=== PATIENT | female | born 1930 | race African-American/Black ===

== ENCOUNTER → 2017-02-26 | Outpatient (CLI) | payer MEDICARE, MEDICAID ==
--- NOTE | 2017-02-26 16:39 | WOMENS IMAGING REPORT ---
EXAM DESCRIPTION: 3D SCREENING MAMMO BILAT COMPLETED DATE/TIME: 02/26/2017 3:28 pm REASON FOR STUDY: ROUTINE SCREENING; Z12.31 Z12.31 ENCNTR SCREEN MAMMOGRAM FOR MALIGNANT NEOPLASM O F TITI COMPARISON: Multiple since 2008 TECHNIQUE: Standard craniocaudal and mediolateral oblique views of each breast recorded using digita l acquisition and breast tomosynthesis. LIMITATIONS: None. FINDINGS: No masses, calcifications or architectural distortion. No areas of suspicion. Read with the assistance of CAD. .[facility] - R2 Cenova Version 1.3 .[facility] Imaging - R2 Cenova Version 1.3 .[facility] Imaging - R2 Cenova Version 2.4 .[facility] [place]2 Cenova Version 2.4 .[facility] - R2 [employer] Clerk Version 9.2 IMPRESSION: NORMAL MAMMOGRAM. BIRADS 1. BREAST DENSITY: b. There are scattered areas of fibroglandular density. BIRAD: 1 NEGATIVE RECOMMENDATION: ROUTINE SCREENING COMMENT: The patient has been notified of the results by letter per SA requirements. Additional no tification policies are in place for contacting patient with suspicious or incomplete findings. Quality ID #[id number]: The [employer] recommends an annual screening mammogram for women aged 40 years or over. This facility utilizes a reminder system to ensure that all patients receive reminder letters, and/or direct phone calls for appointments. This includes reminders for routine scr eening mammograms, diagnostic mammograms, or other Breast Imaging Interventions when appropriate. Th is patient will be placed in the appropriate reminder system. The [employer] (ACR) has developed recommendations for screening MRI of the breast s in certain patient populations, to be used in conjunction with mammography. Breast MRI surveillanc e may be appropriate for women with more than 20% lifetime risk of developing breast cancer as deter mined by genetic testing, significant family history of the disease, or history of mantle radiation f or Hodgkins Disease. ACR Practice Guidelines 2008. DBT Technology DBT is a type of tomographic mammography. With conventional mammography, overlapping breast tissue ma y make lesions difficult to detect, even with good compression. DBT uses an x-ray tube that rotates a round the breast, taking images at different angles. These images are then combined to create thin sl ices of the breast that the radiologist can view as a 3D reconstruction. The [employer] unit can perform full-field digital mammograms (2D imaging); or DBT (3D imaging); or both, in a combination mode that quickly performs both the mammogram and the tomosynthesis scan while the breast is still compressed. PQRS 6045F: Fluoroscopic imaging is not utilized for breast tomosynthesis. TECHNICAL DOCUMENTATION: FINDING NUMBER: (1) ASSESSMENT: (1) JOB ID: [id number] [employer]- All Rights Reserved
== END ==
LOC: WI 13:56
PROVIDERS: ATTEND Internal Medicine Geriatric Medicine
DX: Z12.31 Encounter for screening mammogram for malignant neoplasm of breast (principal)
CPT/HCPCS: 77063; G0202; 77067

== ENCOUNTER → 2017-07-18 | Outpatient (CLI) | payer MEDICARE, MEDICAID ==
--- NOTE | 2017-07-18 17:04 | RADIOLOGY REPORT (SQ) ---
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 Selected additional c olor/power Doppler images recorded. All images stored to PACS. LIMITATIONS: None. FINDINGS: The thyroid gland is diffusely heterogeneous in echogenicity. There is a 2.2 x 1.8 cm mary id nodule in the thyroid isthmus. Right lobe thyroid measures about 3.5 x 1.8 cm in size with multiple colloid cysts, the largest is 8 mm in diameter. Left lobe thyroid is 2.6 x 1.2 cm in size with multiple colloid cysts, the largest is 7 mm in diamete r. IMPRESSION: Solid thyroid isthmus mass 2.2 x 1.8 cm in size. TECHNICAL DOCUMENTATION: JOB ID: [id number] [employer]- All Rights Reserved Reading location - IP/workstation name: [email or web address]
== END ==
LOC: RAD 12:46
PROVIDERS: ATTEND Internal Medicine Geriatric Medicine
DX: E04.2 Nontoxic multinodular goiter (principal)
CPT/HCPCS: 76536

== ENCOUNTER → 2017-09-06 | Day surgery (SDC) | payer MEDICARE, MEDICAID ==
--- NOTE | 2017-09-06 13:03 | RADIOLOGY REPORT (SQ) ---
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 A ti meout was performed to confirm the procedure and patient's identity. The skin of the neck was preppe d and draped in sterile fashion and 0.5 mL of 1% lidocaine administered for local anesthesia. Under sonographic guidance, fine needle aspiration biopsy was performed of the 2.2 x 1.8 cm mass in the is thmus of the thyroid. Three separate aspirations were performed. Specimens were evaluated by Teresa from cytology at the t reece of acquisition. Hemostasis was obtained with direct manual compression. There were no immediate complications. LIMITATIONS: None. FINDINGS: PATHOLOGY: Pending. IMPRESSION: ULTRASOUND-GUIDED BIOPSY PERFORMED OF A MASS IN THE thyroid isthmus. PATHOLOGY PENDING AT THE TIME OF DICTATION. COMMENT: Patient medication list reviewed: Yes- Quality ID# [id number]:Eligible professional attests to doc umenting in the medical record they obtained, updated, or reviewed the patient's current medications. TECHNICAL DOCUMENTATION: JOB ID: [id number] [employer]- All Rights Reserved Reading location - IP/workstation name: [email or web address]
== END ==
LOC: RAD 10:17
PROVIDERS: ATTEND Internal Medicine Geriatric Medicine
DX: E04.1 Nontoxic single thyroid nodule (principal)
CPT/HCPCS: 60100; 88173

== ENCOUNTER → 2018-03-06 | Outpatient (CLI) | payer MEDICARE, MEDICAID ==
--- NOTE | 2018-03-06 12:54 | WOMENS IMAGING REPORT ---
EXAM DESCRIPTION: 3D SCREENING MAMMO BILAT COMPLETED DATE/TIME: 03/06/2018 10:14 am REASON FOR STUDY: SCREENING MAMMO Z12.31 ENCNTR SCREEN MAMMOGRAM FOR MALIGNANT NEOPLASM OF TITI COMPARISON: Multiple since 2008 TECHNIQUE: Standard craniocaudal and mediolateral oblique views of each breast recorded using digita l acquisition and breast tomosynthesis. LIMITATIONS: None. FINDINGS: No masses, calcifications or architectural distortion. No areas of suspicion. Read with the assistance of CAD. .[facility] - R2 Cenova Version 1.3 .[facility] Imaging - R2 Cenova Version 1.3 .[facility] Imaging - R2 Cenova Version 2.4 .[facility] [place] R2 Cenova Version 2.4 .[facility] - R2 Program [employer] Version 9.2 IMPRESSION: NORMAL MAMMOGRAM. BIRADS 1. BREAST DENSITY: b. There are scattered areas of fibroglandular density. BIRAD: 1 NEGATIVE RECOMMENDATION: ROUTINE SCREENING Please continue yearly bilateral screening mammography/tomosynthesis in February 2019 COMMENT: The patient has been notified of the results by letter per SA requirements. Additional no tification policies are in place for contacting patient with suspicious or incomplete findings. Quality ID #[id number]: The [employer] recommends an annual screening mammogram for women aged 40 years or over. This facility utilizes a reminder system to ensure that all patients receive reminder letters, and/or direct phone calls for appointments. This includes reminders for routine scr eening mammograms, diagnostic mammograms, or other Breast Imaging Interventions when appropriate. Th is patient will be placed in the appropriate reminder system. The [employer] (ACR) has developed recommendations for screening MRI of the breast s in certain patient populations, to be used in conjunction with mammography. Breast MRI surveillanc e may be appropriate for women with more than 20% lifetime risk of developing breast cancer as deter mined by genetic testing, significant family history of the disease, or history of mantle radiation f or Hodgkins Disease. ACR Practice Guidelines 2008. DBT Technology DBT is a type of tomographic mammography. With conventional mammography, overlapping breast tissue ma y make lesions difficult to detect, even with good compression. DBT uses an x-ray tube that rotates a round the breast, taking images at different angles. These images are then combined to create thin sl ices of the breast that the radiologist can view as a 3D reconstruction. The [employer] unit can perform full-field digital mammograms (2D imaging); or DBT (3D imaging); or both, in a combination mode that quickly performs both the mammogram and the tomosynthesis scan while the breast is still compressed. PQRS 6045F: Fluoroscopic imaging is not utilized for breast tomosynthesis. TECHNICAL DOCUMENTATION: FINDING NUMBER: (1) ASSESSMENT: (1) JOB ID: [id number] [employer]- All Rights Reserved Reading location - IP/workstation name: [email or web address]
== END ==
LOC: WI 09:29
PROVIDERS: ATTEND Internal Medicine Geriatric Medicine
DX: Z12.31 Encounter for screening mammogram for malignant neoplasm of breast (principal)
CPT/HCPCS: 77063; 77067

== ENCOUNTER → 2018-10-15 | Outpatient (CLI) | payer MEDICAID, MEDICARE ==
--- NOTE | 2018-10-15 14:42 | RADIOLOGY REPORT (SQ) ---
EXAM DESCRIPTION: CT CHEST WITH COMPLETED DATE/TIME: 10/15/2018 2:10 pm REASON FOR STUDY: C85.90 NON-HODGKIN LYMPHOMA, UNSPECIFIED, UNSPECIFIED SITE C85.90 NON-HODGKIN LYM PHOMA, UNSPECIFIED, UNSPECIFIED SITE COMPARISON: PET-CT dated 02/09/2018 TECHNIQUE: CT scan of the chest performed using helical scanning technique with dynamic intravenous contrast injection. Images reviewed with lung, soft tissue and bone windows. Reconstructed coronal and sagittal MPR and MIP images reviewed. All images stored on PACS. All CT scanners at this facility use dose modulation, iterative reconstruction, and/or weight based d osing when appropriate to reduce radiation dose to as low as reasonably achievable (ALARA). [facility]: Dose Right [facility]: CareDose [facility]: Dose Right [facility]: Teradose 4D [facility]: Show de Ingressos CONTRAST TYPE AND DOSE: 80 mL Omnipaque 350- low osmolar. RENAL FUNCTION: Creatinine 1.3 RADIATION DOSE: . LIMITATIONS: None. FINDINGS: LUNGS AND PLEURA: No opacities, nodules, masses. No pneumothorax. No effusions. HILAR AND MEDIASTINAL STRUCTURES: No mass or adenopathy. HEART AND VASCULAR STRUCTURES: No aneurysm or dissection. No central pulmonary emboli. No pericardi al effusion. HARDWARE: None in the chest. UPPER ABDOMEN: Small left renal cyst. THYROID AND OTHER SOFT TISSUES: Isthmus lesion is again noted. This was previously biopsied. BONES: No significant finding. OTHER: No other significant finding. IMPRESSION: No evidence of metastatic disease in the chest. TECHNICAL DOCUMENTATION: JOB ID: [id number] Quality ID # [id number]: Final reports with documentation of one or more dose reduction techniques (e.g., Au tomated exposure control, adjustment of the mA and/or kV according to patient size, use of iterative reconstruction technique) 2010 [employer]- All Rights Reserved Reading location - IP/workstation name: [email or web address]
--- NOTE | 2018-10-15 14:58 | RADIOLOGY REPORT (SQ) ---
EXAM DESCRIPTION: CT ABDOMEN IV CONTRAST ONLY COMPLETED DATE/TIME: 10/15/2018 2:08 pm REASON FOR STUDY: C85.90 NON-HODGKIN LYMPHOMA, UNSPECIFIED, UNSPECIFIED SITE C85.90 NON-HODGKIN LYM PHOMA, UNSPECIFIED, UNSPECIFIED SITE COMPARISON: None. TECHNIQUE: CT scan of the abdomen performed with intravenous and without oral contrast using helical scanning technique with dynamic intravenous contrast injection. Images reviewed with lung, soft tiss ue, and bone windows. Reconstructed coronal and sagittal MPR images reviewed. Delayed images for eval uation of the urinary system also acquired and evaluated. All images stored on PACS. All CT scanners at this facility use dose modulation, iterative reconstruc tion, and/or weight based dosing when appropriate to reduce radiation dose to as low as reasonably ac hievable (ALARA). [facility]: Dose Right [facility]: CareDose [facility]: Dose Right [facility]: Teradose 4D [facility]: [employer]Eye CONTRAST TYPE AND DOSE: contrast/concentration: Isovue 350.00 mg/ml; Total Contrast Delivered: 80.0 ml; Total Saline Delivered: 68.0 ml RENAL FUNCTION: Creatinine 1.3 RADIATION DOSE: CT Rad equipment meets quality standard of care and radiation dose reduction technGlimmerglass Networks ues were employed. CTDIvol: 4.7 - 10.3 mGy. DLP: 675 mGy-cm. . LIMITATIONS: None. FINDINGS: LOWER CHEST: No significant findings. No nodules or infiltrates. LIVER: There is a small hepatic cyst. SPLEEN: Normal size. No focal lesions. PANCREAS: No masses. No significant calcifications. No adjacent inflammation or peripancreatic fluid collections. Pancreatic duct not dilated. GALLBLADDER: No identified stones by CT criteria. No inflammatory changes to suggest cholecystitis. ADRENAL GLANDS: No significant masses or asymmetry. RIGHT KIDNEY AND URETER: No solid masses. No significant calcifications. No hydronephrosis or hyd roureter. LEFT KIDNEY AND URETER: No solid masses. No significant calcifications. No hydronephrosis or hydr oureter. There is a small cortical cyst. AORTA AND VESSELS: Mild atherosclerotic change. No aneurysmal dilatation. RETROPERITONEUM: No retroperitoneal adenopathy, hemorrhage or masses. BOWEL AND PERITONEAL CAVITY: There is large amount of stool throughout the visualize colon. No bowel wall thickening or mesenteric inflammation. APPENDIX: Not visualized. ABDOMINAL WALL: No masses. No hernias. BONES: No significant or acute findings. OTHER: No other significant finding. IMPRESSION: Constipation. No evidence of metastatic disease in the abdomen or pelvis. TECHNICAL DOCUMENTATION: JOB ID: [id number] Quality ID # [id number]: Final reports with documentation of one or more dose reduction techniques (e.g., Au tomated exposure control, adjustment of the mA and/or kV according to patient size, use of iterative reconstruction technique) 2010 [employer]- All Rights Reserved Reading location - IP/workstation name: [email or web address]
== END ==
LOC: RAD 13:30
PROVIDERS: ATTEND Internal Medicine Medical Oncology
DX: C85.90 Non-Hodgkin lymphoma, unspecified, unspecified site (principal); K59.00 Constipation, unspecified
CPT/HCPCS: 71260; 74160; 82565

== ENCOUNTER → 2018-11-30 | Outpatient (CLI) | payer MEDICAID, MEDICARE ==
--- NOTE | 2018-12-01 08:35 | RADIOLOGY REPORT (SQ) ---
EXAM DESCRIPTION: PET CT SKULL/THIGH COMPLETED DATE/TIME: 12/01/2018 5:25 am REASON FOR STUDY: C85.90 NON-HODGKIN LYMPHOMA, UNSPECIFIED, UNSPECIFIED SITE C85.90 NON-HODGKIN LYM PHOMA, UNSPECIFIED, UNSPECIFIED SITE M89.9 DISORDER OF BONE, UNSPECIFIED COMPARISON: PET scan dated 02/10/2016. CT chest, abdomen, and pelvis dated 10/15/2018. RADIONUCLIDE AND DOSE: 10 mCi F18 FDG The route of agent administration: Intravenous FASTING BLOOD SUGAR: 98 mg/dl CONTRAST TYPE AND DOSE: No CT contrast given. TECHNIQUE: Blood glucose level was verified. Above dose of FDG was injected intravenously. 2-D seg mented attenuation correction images were obtained from the base of the skull to the midthighs. Nonc ontrast CT images were obtained for attenuation correction and fusion with emission images. CT image s were performed without oral or intravenous contrast and are not sensitive for parenchymal lesions. A series of overlapping emission PET images were obtained. Images reviewed and manipulated at [facility] work station by the radiologist. Images stored on PACS. LIMITATIONS: None. FINDINGS: HEAD AND NECK: No areas of abnormal metabolic activity in the soft tissues of the head and neck. CHEST: No areas of abnormal metabolic activity in the chest. ABDOMEN AND PELVIS: No areas of abnormal metabolic activity in the abdomen or pelvis. Expected physi ologic activity is present in the genitourinary system and bowel. PROXIMAL LOWER EXTREMITIES: No areas of abnormal metabolic activity in the soft tissues of the lower extremities. BONES: Focal increased activity on the left side of the L3 vertebra near the pedicle. Mean SUV 6.81. No focal bony lesions on CT other than adjacent degenerative disc disease. Bilateral hip prosthese s with areas of increased activity along the left femoral stem component and at the tip of the right femoral stem component. ADDITIONAL CT FINDINGS: No additional significant findings on the noncontrast CT images. OTHER: Background blood pool activity mean SUV 1.53. Background liver activity mean SUV 2.22. No ot her significant findings. IMPRESSION: 1. FOCAL AREA OF INCREASED ACTIVITY ON THE LEFT SIDE OF THE L3 VERTEBRA. NO NOTICEABLE BONY FINDING ON CT OTHER THAN ADJACENT DEGENERATIVE DISC DISEASE. WOULD RECOMMEND FOLLOW-UP MRI OF THE LUMBAR SPI NE TO DETERMINE IF THERE IS ANY EVIDENCE OF BONY PATHOLOGY OTHER THAN DEGENERATIVE DISC DISEASE. 2. INCREASED ACTIVITY ALONG THE FEMORAL STEM OF BOTH HIP PROSTHESES, MORE PROMINENT ON THE LEFT. NO FOCAL BONY FINDINGS. MAY BE RELATED TO INFLAMMATION AND POTENTIALLY DUE TO LOOSENING OF THE PROSTHES IS. 3. NO OTHER AREAS OF ABNORMAL ACTIVITY ON PET IMAGING. PREVIOUSLY SEEN HYPERMETABOLIC CERVICAL LYMPH NODE ON THE PET SCAN FROM JANUARY 2016 IS NO LONGER PRESENT. TECHNICAL DOCUMENTATION: JOB ID: [id number] [email or web address]- All Rights Reserved Reading location - IP/workstation name: [email or web address]
== END ==
LOC: RAD 14:31
PROVIDERS: ATTEND Internal Medicine Medical Oncology
DX: M89.9 Disorder of bone, unspecified (principal); C85.91 Non-Hodgkin lymphoma, unspecified, lymph nodes of head, face, and neck
CPT/HCPCS: 78815; A9552

== ENCOUNTER → 2018-12-29 | Outpatient (CLI) | payer MEDICAID, MEDICARE ==
--- NOTE | 2018-12-29 14:54 | RADIOLOGY REPORT (SQ) ---
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 TECHNIQUE: Sagittal and Axial imaging includes T1, T1 post gadolinium, T2, STIR and gradient echo se quences. Coronal T2/HASTE imaging. CONTRAST TYPE AND DOSE: 15 mL Dotarem. RENAL FUNCTION: Not indicated. ACR Type II contrast agent associated with few, if any, unconfounded cases of NSF LIMITATIONS: None. FINDINGS: VISUALIZED UPPER ABDOMEN: Limited evaluation. No acute or suspicious findings suggested. SEGMENTATION: No transitional anatomy. The lowest well-developed disc space is labeled L5-S1. ALIGNMENT: Mild scoliosis. Grade 1 anterolisthesis L3 relative to L4. VERTEBRAE: Intact. No fractures. BONE MARROW: Abnormal decreased T1 signal and enhancement superior endplate L3 extending to left of m idline into the pedicle. This corresponds to the finding on recent CT. DISC SIGNAL: Desiccation multiple levels. POSTERIOR ELEMENTS: Generally intact. No pars defect evident. HARDWARE: None in the spine. CORD AND CONUS: Normal in size and signal intensity. Conus at the appropriate level. SOFT TISSUES: No aortic aneurysm seen. No bulky retroperitoneal adenopathy or mass. No paraspinal mas s or fluid. L1-L2: Disc bulge and facet arthropathy. No significant stenosis. L2-L3: Mild spinal stenosis due to disc bulge and facet arthropathy.There is abnormal enhancement in the L3 pedicle which extends into and surrounds the exiting left L2 nerve root. L3-L4: Mild spinal stenosis due to disc bulge and facet arthropathy. There is abnormal enhancement i n the pedicle which extends into and surrounds the exiting left L3 nerve root. L4-L5: Mild spinal stenosis due to disc bulge and facet arthropathy. Mild neural foraminal narrowing bilaterally. L5-S1: Disc bulge and facet arthropathy. Mild neural foraminal narrowing bilaterally. LOWER THORACIC: Incompletely imaged. No stenosis seen. SACRUM: Visualized upper sacrum intact. ENHANCEMENT: See above. OTHER: No other significant findings. 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 TECHNICAL DOCUMENTATION: JOB ID: [id number]- All Rights Reserved Reading location - IP/workstation name: [email or web address]
== END ==
LOC: RAD 09:04
PROVIDERS: ATTEND Internal Medicine
DX: C82.08 Follicular lymphoma grade I, lymph nodes of multiple sites (principal)
CPT/HCPCS: 82565; 72158; A9576

== ENCOUNTER 2019-02-04 18:32 | Inpatient (IN) | payer MEDICARE ==
[2019-02-04] MEDS ORDERED: NORMAL SALINE 1000 ML 1,000 ML IV ONE ×2 (19:14→21:43)
[2019-02-04 19:45] LABS: ABSOLUTE EOSINOPHILS # (AUTO) 0.1 10^3/uL (0.0-0.6); ABSOLUTE LYMPHOCYTES (AUTO) 1.2 10^3/uL (0.5-4.7); ABSOLUTE MONOCYTES (AUTO) 0.9 10^3/uL (0.1-1.4); ABSOLUTE NEUT (AUTO) 3.8 10^3/uL (1.7-8.2); BASOPHILS % (AUTO) 0.1 % (0-2); HEMATOCRIT 23.6 % (36.0-47.0); LYMPHOCYTES % (AUTO) 20.4 % (13-45); MEAN CORPUSCULAR HGB CONC 33.9 g/dL (32.0-36.0); MEAN CORPUSCULAR VOLUME 94 fl (80-97); MONOCYTES % (AUTO) 15.4 % (3-13); PLATELET COUNT 104 10^3/uL (150-450); RED CELL DISTRIBUTION WIDTH 15.5 % (11.5-14.0); SEGMENTED NEUTROPHILS % (AUTO) 62.1 % (42-78); TOTAL CELLS COUNTED % (AUTO) 100 %
[2019-02-04 19:50] LABS: APPEARANCE,URINE SLIGHTLY-CLOUDY; BILIRUBIN,URINE NEGATIVE (NEGATIVE); COLOR,URINE YELLOW; GLUCOSE, URINE NEGATIVE (NEGATIVE); KETONES,URINE NEGATIVE (NEGATIVE); LEUKOCYTE ESTERASE,URINE LARGE (NEGATIVE); NITRITE,URINE POSITIVE (NEGATIVE); PROTEIN,URINE NEGATIVE (NEGATIVE); URINE SPECIFIC GRAVITY 1.018; UROBILINOGEN,URINE NEGATIVE mg/dL (<2.0)
[2019-02-04 19:57] LABS: ALBUMIN 3.4 g/dL (3.5-5.0); ALKALINE PHOSPHATASE 50 U/L (38-126); ANION GAP 8 (5-19); ASPARTATE AMINO TRANSFERASE 61 U/L (14-36); BILIRUBIN,TOTAL 0.2 mg/dL (0.2-1.3); BLOOD UREA NITROGEN 44 mg/dL (7-20); CALCIUM 8.6 mg/dL (8.4-10.2); CARBON DIOXIDE 25 mmol/L (22-30); CHLORIDE 99 mmol/L (98-107); CREATINE KINASE 160 U/L (30-135); GLUCOSE 108 mg/dL (75-110); POTASSIUM 4.4 mmol/L (3.6-5.0); TOTAL PROTEIN 7.5 g/dL (6.3-8.2)
[2019-02-04 20:09] LABS: CREATINE KINASE MB 2.44 ng/mL (<4.55)
[2019-02-04] MEDS ORDERED: CEFTRIAXONE 1 GM/D5W RTU 1 GM/50 ML RTUPB IV ONE (20:15)
[2019-02-04 20:17] LABS: TROPONIN I 0.046 ng/mL
--- NOTE | 2019-02-04 20:22 | EKG REPORT ---
SEVERITY:- ABNORMAL ECG - SINUS RHYTHM NONSPECIFIC ST-T CHANGES LATERAL LEADS : Confirmed by: Rahul Knox MD 04-Feb-2019 20:22:19
--- NOTE | 2019-02-04 20:56 | RADIOLOGY REPORT (SQ) ---
EXAM DESCRIPTION: [employer]: XR CHEST 1 VIEW CLINICAL HISTORY: 88 years Female, cough COMPARISON: None. FINDINGS: Lungs are clear, with no focal infiltrate, pneumothorax, or pleural effusion. Left PICC line tip is at the cavoatrial junction, port partially visualized in the left arm. Mediastinum is within normal limits for this positioning. Bony structures are unremarkable. IMPRESSION: 1. No acute pulmonary findings. 2. Left PICC line in place
[2019-02-05] MEDS ORDERED: ASPIRIN 81 MG TABLET, CHEWABLE PO ONE ×3 (00:28→05:15)
--- NOTE | 2019-02-05 00:35 | ER Document Report ---
Entered by PRINCESS TAYLOR SCRIBE 02/04/191956 Acting as scribe for:BHAVNA JACOBS DO ED General - General Chief Complaint: Near Syncope Stated Complaint: POSSIBLE SYNCOPE Time Seen by Provider: 02/04/19 18:49 Primary Care Provider: JIMMIE MUÑOZ MD [Primary Care Provider] - Follow up as needed Mode of Arrival: Ambulatory Information source: Patient Notes: This 88-year-old female patient presents to the emergency department today with complaints of a syncopal event just prior to arrival. Patient states she was getting up to go into the kitchen to attend to something on the stove when she felt dizzy and lightheaded and then woke up on the floor. Patient states she was told by her primary care physician to "wait at least 10 minutes after sitting up to stand up" but she states she was in a hurry to get to the stove. Patient states she has had some nasal congestion but no other symptoms. Patient denies hitting her head, loss of consciousness, chest pain, shortness of breath, nausea, vomiting, or fevers. TRAVEL OUTSIDE OF THE [place] IN LAST 30 DAYS: No - Related Data Allergies/Adverse Reactions: No Known Allergies Allergy (Unverified 10/29/14 08:38) Past Medical History - General Information source: Patient, [facility] Records - Social History Smoking Status: Unknown if Ever Smoked Cigarette use (# per day): No Frequency of alcohol use: None Drug Abuse: None Lives with: Family Family History: Reviewed & Not Pertinent Patient has suicidal ideation: No Patient has homicidal ideation: No - Past Medical History Cardiac Medical History: Reports: Hx Hypercholesterolemia - meds for 40 years, Hx Hypertension - meds for 30 years Musculoskeletal Medical History: Reports Hx Arthritis Past Surgical History: Reports: Hx Appendectomy - 1970, Hx Hysterectomy - MARYURI - Immunizations Hx Diphtheria, Pertussis, Tetanus Vaccination: No Hx Pneumococcal Vaccination: 03/18/13 Review of Systems - Review of Systems Constitutional: No symptoms reported EENT: See HPI, Nose congestion Cardiovascular: See HPI, Syncope Respiratory: No symptoms reported Gastrointestinal: No symptoms reported Genitourinary: No symptoms reported Female Genitourinary: No symptoms reported Musculoskeletal: No symptoms reported Skin: No symptoms reported Hematologic/Lymphatic: No symptoms reported Neurological/Psychological: No symptoms reported -: Yes All other systems reviewed and negative Physical Exam - Vital signs Vitals: Resp 8 L 02/04/19 18:51 Interpretation: Normal - General General appearance: Alert In distress: None - Appears tired - HEENT Head: Normocephalic, Atraumatic Eyes: Normal Pupils: PERRL Mucous membranes: Dry - Respiratory Respiratory status: No respiratory distress Chest status: Nontender Breath sounds: Normal Chest palpation: Normal - Cardiovascular Rhythm: Regular Heart sounds: Normal auscultation Murmur: No - Abdominal Inspection: Normal Distension: No distension Bowel sounds: Normal Tenderness: Nontender Organomegaly: No organomegaly - Back Back: Normal, Nontender - Extremities General upper extremity: Normal inspection, Nontender, Normal color, Normal ROM, Normal temperature General lower extremity: Normal inspection, Nontender, Normal color, Normal ROM, Normal temperature, Normal weight bearing. No: Ester's sign - Neurological Neuro grossly intact: Yes Cognition: Normal Orientation: AAOx4 [place] Coma Scale Eye Opening: Spontaneous Kristin Coma Scale Verbal: Oriented [place] Coma Scale Motor: Obeys Commands Kristin Coma Scale Total: 15 Speech: Normal Motor strength normal: LUE, RUE, LLE, RLE Sensory: Normal - Psychological Associated symptoms: Normal affect, Normal mood - Skin Skin Temperature: Warm Skin Moisture: Dry Skin Color: Normal Course - Re-evaluation Re-evalutation: 02/05/19 00:33 Patient is an 88-year-old female who came in after an episode of syncope today. Patient with RAIZA and nitrate positive urinary tract infection. Denies chest pain or trouble breathing. No real complaints except that she feels tired and washed out. Received infusion recently for multiple myeloma. No acute findings on EKG. Of note, patient troponin is up trending. Discussed with her primary care doctor and will admit patient to the IMCU. Patient is agreeable to this plan. Stable at the time of admission. Urine culture has been sent. Patient is stable at the time of admission. Rocephin initiated in the emergency department. - Vital Signs Vital signs: Temp Pulse Resp BP Pulse Ox 98.1 F 18 146/56 H 99 02/04/19 21:43 02/04/19 23:43 02/04/19 23:43 02/04/19 23:43 - Laboratory Result Diagrams: 02/04/19 19:19 02/04/19 19:19 Laboratory results interpreted by me: 02/04/19 02/04/19 02/04/19 19:19 19:19 19:19 RBC 2.50 L Hgb 8.0 L Hct 23.6 L RDW 15.5 H Plt Count 104 L [place] % (Auto) 15.4 H Sodium 131.8 L BUN 44 H Creatinine 1.65 H Est GFR ( Amer) 36 L Est GFR (MDRD) Non-Af 29 L AST 61 H Creatine Kinase 160 H Albumin 3.4 L Urine Nitrite POSITIVE H Ur Leukocyte Esterase LARGE H Urine Ascorbic Acid 40 H Discharge - Discharge Clinical Impression: RAIZA (acute kidney injury) Syncope Qualifiers: Syncope type: unspecified Qualified Code(s): R55 - Syncope and collapse UTI (urinary tract infection) Qualifiers: Urinary tract infection type: site unspecified Hematuria presence: with hematuria Qualified Code(s): N39.0 - Urinary tract infection, site not specified; R31.9 - Hematuria, unspecified Condition: Stable Disposition: ADMITTED INPATIENT Admitting Provider: Bart Unit Admitted: IMCU Referrals: JIMMIE MUÑOZ MD [Primary Care Provider] - Follow up as needed I personally performed the services described in the documentation, reviewed and edited the documentation which was dictated to the scribe in my presence, and it accurately records my words and actions.
[2019-02-05] MEDS ORDERED: NORMAL SALINE 1000 ML 1,000 ML IV PRN (05:12)
[2019-02-05] MEDS ORDERED: TRAMADOL HCL 50 MG TABLET PO PRN (05:13)
[2019-02-05 06:15] LABS: CHOLESTEROL 112.92 mg/dL (0-200); CREATINE KINASE 134 U/L (30-135); TRIGLYCERIDES 34 mg/dL (<150)
[2019-02-05 06:23] LABS: DIRECT LDL 41 mg/dL (<100)
[2019-02-05 06:30] LABS: CREATINE KINASE MB 2.03 ng/mL (<4.55); TROPONIN I 0.092 ng/mL
[2019-02-05] MEDS: DOXAZOSIN MESYLATE 1 MG TABLET PO SCH (09:57)
[2019-02-05] MEDS: VALACYCLOVIR HCL 500 MG TABLET PO SCH (09:57)
[2019-02-05] MEDS: CETIRIZINE 5 MG TABLET PO SCH (09:57)
[2019-02-05] MEDS: LOSARTAN POTASSIUM 50 MG TABLET PO SCH (09:59)
[2019-02-05] MEDS: CALCIUM CARBONATE 250 MG/VITAMIN D3 125 UNIT TABLET PO SCH ×2 (09:59→17:13)
[2019-02-05] MEDS: AMLODIPINE BESYLATE 10 MG TABLET PO SCH (09:59)
[2019-02-05] MEDS: MULTIVITAMIN TABLET PO SCH (09:59)
[2019-02-05] MEDS: HYDROCHLOROTHIAZIDE 12.5 MG TABLET PO SCH (09:59)
[2019-02-05] MEDS: CYANOCOBALAMIN (VITAMIN B-12) 1,000 MCG TABLET PO SCH (09:59)
[2019-02-05] MEDS ORDERED: DICLOFENAC SODIUM TOP SCH (10:00)
[2019-02-05] MEDS ORDERED: (PENDING PHARMACY ID) (Irbesartan/Hydrochlorothiazide [Irbesartan-Hctz 300-12.5 Mg Tb] 1 T PO SCH (10:00)
[2019-02-05] MEDS: ASPIRIN 81 MG TABLET, CHEWABLE PO SCH (10:00)
[2019-02-05] MEDS: CALCIUM CARBONATE 500 MG TABLET PO SCH ×2 (10:00→17:13)
[2019-02-05] MEDS: SERTRALINE HCL 50 MG TABLET PO SCH (10:00)
[2019-02-05] MEDS: SULFAMETHOXAZOLE/TRIMETHOPRIM 800-160 MG TABLET PO SCH (10:00)
[2019-02-05 12:07] LABS: CREATINE KINASE MB 1.79 ng/mL (<4.55); TROPONIN I 0.068 ng/mL
[2019-02-05] MEDS: CEFTRIAXONE 1 GM/D5W RTU 1 GM/50 ML RTUPB IV SCH (17:13)
[2019-02-05 18:06] LABS: CREATINE KINASE MB 1.74 ng/mL (<4.55)
[2019-02-05 19:03] LABS: TROPONIN I 0.074 ng/mL
--- NOTE | 2019-02-05 20:21 | PDOC H&P ---
History of Present Illness Admission Date/PCP: 02/05/19 01:01 JIMMIE TARAHZOLTANYRN Patient complains of: Passed out History of Present Illness: AYAZ BOYD is a 88 year old female known to my practice who presented to the ED with complain about episode of postural dizziness, lightheadedness and eventually passed out. She reported waking up on the floor. She denied any preceding chest pain, palpitation or irregular heart beat. No associated headache. She admitted to getting up and moving very rapidly to attend to what she was cocking on her stove in the kitchen when her symptoms started. She was unable to report duration of her loss of consciousness. She denied any head injury or hitting her head against any object. She denied any subsequent nausea, vomiting, or vertigo. She decided to seek medical attention due to loss of consciousness. Her initial evaluation in the ED was significant for hyponatremia, worsening renal indices with elevated serum CK and indeterminate range Troponin I level. Her morbidities are listed below. She was advised hospitalization for further evaluation and management. Past Medical History Cardiac Medical History: Reports: Hyperlipidema - meds for 40 years, Hypertension - meds for 30 years Denies: Atrial Fibrillation, Congestive Heart Failure, Coronary Artery Disease, Myocardial Infarction, Peripheral Vascular Disease, Pulmonary Embolism, Heart Murmur Pulmonary Medical History: Denies: Asthma, Bronchitis, Chronic Obstructive Pulmonary Disease (COPD), Pneumonia, Respiratory Failure, Sleep Apnea, Tuberculosis Neurological Medical History: Denies: Seizures Endocrine Medical History: Reports: Other - multinodular goiter Denies: Hyperthyroidism, Hypothyroidism Renal/ Medical History: Denies: End Stage Renal Disease Malignancy Medical History: Reports: 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, Other - Multiple Myeloma Denies: Breast Cancer, Cervical Cancer, Leukemia, Lung Cancer, Ovarian Cancer GI Medical History: Denies: Crohn's Disease, Gastroesophageal Reflux Disease, Hepatitis, Hiatal Hernia Musculoskeltal Medical History: Reports: Arthritis, Other - postmenopausal osteoporosis Denies: Fibromyalgia Psychiatric Medical History: Reports: Depression Denies: Bipolar Disorder, Dementia, Post Traumatic Stress Disorder Hematology: Reports: Anemia Denies: Hemophilia, Sickle Cell Disease Infectious Medical History: Denies: HIV Past Surgical History Past Surgical History: Reports: Appendectomy - 1970, Hysterectomy - MARYURI Denies: Amputation, Section, Cholecystectomy, Colostomy, Coronary Artery Bypass Graft, Gastric Bypass Surgery, Herniorrhaphy, Mastectomy, Pacemaker, Tonsillectomy, Tubal Ligation Social History Lives with: Family Smoking Status: Never Smoker Electronic Cigarette use?: No Frequency of Alcohol Use: None Hx Recreational Drug Use: No Hx Prescription Drug Abuse: No - Advance Directive Resuscitation Status: Full Code Family History Family History: Reviewed & Not Pertinent Parental Family History Reviewed: Yes Children Family History Reviewed: Yes Sibling(s) Family History Reviewed.: Yes Medication/Allergy Home Medications: Amlodipine Besylate 10 mg PO DAILY 10/29/14 Aspirin [Adult Low Dose Aspirin EC] 81 mg PO DAILY 02/05/19 Atorvastatin Calcium [Lipitor 20 mg Tablet] 20 mg PO DAILY 02/05/19 Calcium Carbonate/Vitamin D3 [Calcium 600-Vit D3 800 Caplet] 1 each PO DAILY 02/05/19 Cholecalciferol (Vitamin D3) [Vitamin D3 1000 Unit Tablet] 1,000 unit PO DAILY 02/05/19 Irbesartan/Hydrochlorothiazide [Irbesartan-Hctz 300-12.5 mg Tb] 1 tab PO DAILY 02/05/19 Lenalidomide [Revlimid] 1 cap PO ASDIR PRN 02/05/19 Levocetirizine Dihydrochloride [Xyzal] 5 mg PO DAILY 02/05/19 Sertraline HCl 50 mg PO DAILY 02/05/19 Sulfamethoxazole/Trimethoprim [Septra-Ds 800-160 mg Tablet] 1 tab PO MOTUWETHFR@1000 02/05/19 Allergies/Adverse Reactions: No Known Allergies Allergy (Unverified 10/29/14 08:38) Review of Systems Constitutional: ABSENT: chills, fever(s), headache(s), weight gain, weight loss Eyes: PRESENT: visual disturbances - correction of acuity with glasses Ears: ABSENT: hearing changes Nose, Mouth, and Throat: ABSENT: as per HPI, headache(s), mouth pain, sore throat, vertigo, other Cardiovascular: ABSENT: chest pain, dyspnea on exertion, edema, orthropnea, palpitations Respiratory: ABSENT: cough, hemoptysis Gastrointestinal: ABSENT: abdominal pain, constipation, diarrhea, hematemesis, hematochezia, nausea, vomiting Genitourinary: ABSENT: dysuria, hematuria Integumentary: ABSENT: rash, wounds Neurological: PRESENT: dizziness, syncope, other - light headedness Psychiatric: ABSENT: anxiety, depression, homidical ideation, suicidal ideation Endocrine: ABSENT: cold intolerance, heat intolerance, polydipsia, polyuria Hematologic/Lymphatic: ABSENT: easy bleeding, easy bruising, lymphadenopathy Allergic/Immunologic: ABSENT: seasonal rhinorrhea Physical Exam Vital Signs: Temp Pulse Resp BP Pulse Ox 98.5 F 59 L 20 126/72 H 97 02/05/19 07:43 02/05/19 07:43 02/05/19 07:43 02/05/19 07:43 02/05/19 07:43 Intake & Output 02/04/19 02/05/19 02/06/19 06:59 06:59 06:59 Intake Total 1150 Balance 1150 Weight 68.7 kg General appearance: PRESENT: no acute distress Head exam: PRESENT: atraumatic, normocephalic Eye exam: PRESENT: conjunctiva pink, EOMI, PERRLA. ABSENT: scleral icterus Ear exam: PRESENT: normal external ear exam Mouth exam: PRESENT: moist Neck exam: PRESENT: full ROM. ABSENT: carotid bruit, JVD, lymphadenopathy, thyromegaly Respiratory exam: PRESENT: clear to auscultation ijeoma, decreased breath sounds - at lung bases Cardiovascular exam: PRESENT: RRR. ABSENT: diastolic murmur, rubs, systolic mur mur Vascular exam: PRESENT: normal capillary refill. ABSENT: pallor GI/Abdominal exam: PRESENT: normal bowel sounds, soft. ABSENT: distended, guarding, mass, organolmegaly, rebound, tenderness Rectal exam: PRESENT: deferred Extremities exam: ABSENT: pedal edema Musculoskeletal exam: PRESENT: deformity - related to multiple joints involvement with arthritis Neurological exam: PRESENT: alert, awake, oriented to person, oriented to place, oriented to time, oriented to situation, CN II-XII grossly intact. ABSENT: motor sensory deficit Psychiatric exam: PRESENT: appropriate affect, normal mood. ABSENT: homicidal ideation, suicidal ideation Skin exam: PRESENT: dry, warm Results Laboratory Results: 02/04/19 19:19 02/04/19 19:19 02/04/19 02/04/19 02/04/19 19: 19: 19:19 WBC 6.0 RBC 2.50 L Hgb 8.0 L Hct 23.6 L MCV 94 MCH 32.0 MCHC 33.9 RDW 15.5 H Plt Count 104 L Seg Neutrophils % 62.1 Sodium 131.8 L Potassium 4.4 Chloride 99 Carbon Dioxide 25 Anion Gap 8 BUN 44 H Creatinine 1.65 H Est GFR ( Amer) 36 L Glucose 108 Calcium 8.6 Total Bilirubin 0.2 AST 61 H Alkaline Phosphatase 50 Total Protein 7.5 Albumin 3.4 L Triglycerides Cholesterol LDL Cholesterol Direct VLDL Cholesterol HDL Cholesterol Urine Color YELLOW Urine Appearance SLIGHTLY-CLOUDY Urine pH 5.0 Ur Specific [place] 1.018 Urine Protein NEGATIVE Urine Glucose (UA) NEGATIVE Urine Ketones NEGATIVE Urine Blood NEGATIVE Urine Nitrite POSITIVE H Ur Leukocyte Esterase LARGE H Urine WBC (Auto) 74 Urine RBC (Auto) 3 02/05/19 05:32 WBC RBC Hgb Hct MCV MCH MCHC RDW Plt Count Seg Neutrophils % Sodium Potassium Chloride Carbon Dioxide Anion Gap BUN Creatinine Est GFR ( Amer) Glucose Calcium Total Bilirubin AST Alkaline Phosphatase Total Protein Albumin Triglycerides 34 Cholesterol 112.92 LDL Cholesterol Direct 41 VLDL Cholesterol 7.0 L HDL Cholesterol 56 Urine Color Urine Appearance Urine pH Ur Specific Bow[place] Urine Protein Urine Glucose (UA) Urine Ketones Urine Blood Urine Nitrite Ur Leukocyte Esterase Urine WBC (Auto) Urine RBC (Auto) 02/04/19 02/04/19 02/04/19 19:19 19:19 23:05 Creatine Kinase 160 H CK-MB (CK-2) 2.44 Troponin I 0.046 0.105 02/05/19 02/05/19 05:32 05:32 Creatine Kinase 134 CK-MB (CK-2) 2.03 Troponin I 0.092 Impressions: Chest X-Ray 02/04/19 00:00 IMPRESSION: 1. No acute pulmonary findings. 2. Left PICC line in place Assessment & Plan - Diagnosis (1) Syncope Qualifiers: Syncope type: unspecified Qualified Code(s): R55 - Syncope and collapse Is this a current diagnosis for this admission?: Yes Plan: Most likely due to postural changes with vasovagal initiation. Monitor cardiac indices for possible cardiac origin and further evaluate as indicated. (2) RAIZA (acute kidney injury) Is this a current diagnosis for this admission?: Yes Plan: Maintain on IV fluid management. Monitor renal indices. (3) UTI (urinary tract infection) Qualifiers: Urinary tract infection type: site unspecified Hematuria presence: without hematuria Qualified Code(s): N39.0 - Urinary tract infection, site not specified Is this a current diagnosis for this admission?: Yes Plan: Maintain on IV Ceftriaxone finding urine culture findings and sensitivity report. (4) Multiple myeloma Qualifiers: Multiple myeloma remission status: not in remission Qualified Code(s): C90.00 - Multiple myeloma not having achieved remission Is this a current diagnosis for this admission?: Yes Plan: Obtain medical oncology consultation with Dr. Louis and continue preadmission medication management under directive of the [facility] oncology team. (5) HTN (hypertension) Qualifiers: Hypertension type: essential hypertension Qualified Code(s): I10 - Essential (primary) hypertension Is this a current diagnosis for this admission?: Yes Plan: See admitting attending physician orders for details about care plan. (6) HLD (hyperlipidemia) Qualifiers: Hyperlipidemia type: unspecified Qualified Code(s): E78.5 - Hyperlipidemia, unspecified Is this a current diagnosis for this admission?: Yes (7) Postmenopausal osteoporosis Is this a current diagnosis for this admission?: Yes Plan: See admitting attending physician orders for details about care plan. (8) Osteoarthritis involving multiple 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 Is this a current diagnosis for this admission?: Yes Plan: See admitting attending physician orders for details about care plan. - Time Time Spent: 50 to 70 Minutes Medications reviewed and adjusted accordingly: Yes Anticipated discharge: Home with Homehealth Within: Other - Inpatient Certification Based on my medical assessment, after consideration of the patient's comorbidities, presenting symptoms, or acuity I expect that the services needed warrant INPATIENT care.: Yes I certify that my determination is in accordance with my understanding of [facility] 's requirements for reasonable and necessary INPATIENT services [42 CFR 412.3e].: Yes Medical Necessity: Significant Comorbidiites Make Outpatient Treatment Too Risky, Need Close Monitoring Due to Risk of Patient Decompensation, Need For IV Fluids, Need For Continuous Telemetry Monitoring, Need for IV Antibiotics, Risk of Complication if Not Cared For in Hospital, Risk of Diagnosis Which Will Require Inpatient Eval/Care/Monitoring Post Hospital Care: D/C Vision Impaired Teacher Documentation - Plan Summary Plan Summary: See admitting attending physician orders for details about care plan.
[2019-02-05] MEDS: ATORVASTATIN CALCIUM 20 MG TABLET PO SCH (22:03)
[2019-02-06 06:53] LABS: ABSOLUTE EOSINOPHILS # (AUTO) 0.1 10^3/uL (0.0-0.6); ABSOLUTE LYMPHOCYTES (AUTO) 0.5 10^3/uL (0.5-4.7); ABSOLUTE MONOCYTES (AUTO) 0.6 10^3/uL (0.1-1.4); ABSOLUTE NEUT (AUTO) 4.5 10^3/uL (1.7-8.2); BASOPHILS % (AUTO) 0.1 % (0-2); EOSINOPHILS % (AUTO) 1.3 % (0-6); HEMATOCRIT 22.5 % (36.0-47.0); LYMPHOCYTES % (AUTO) 8.9 % (13-45); MEAN CORPUSCULAR HEMOGLOBIN 31.4 pg (27.0-33.4); MEAN CORPUSCULAR HGB CONC 33.3 g/dL (32.0-36.0); MEAN CORPUSCULAR VOLUME 94 fl (80-97); MONOCYTES % (AUTO) 10.8 % (3-13); RED BLOOD COUNT 2.39 10^6/uL (3.72-5.28); RED CELL DISTRIBUTION WIDTH 15.1 % (11.5-14.0); SEGMENTED NEUTROPHILS % (AUTO) 78.9 % (42-78); TOTAL CELLS COUNTED % (AUTO) 100 %; WHITE BLOOD COUNT 5.8 10^3/uL (4.0-10.5)
[2019-02-06 07:06] LABS: ALBUMIN 2.8 g/dL (3.5-5.0); ALKALINE PHOSPHATASE 42 U/L (38-126); ANION GAP 8 (5-19); ASPARTATE AMINO TRANSFERASE 150 U/L (14-36); BILIRUBIN,DIRECT 0.1 mg/dL (0.0-0.4); BILIRUBIN,TOTAL 0.3 mg/dL (0.2-1.3); BLOOD UREA NITROGEN 39 mg/dL (7-20); CALCIUM 8.2 mg/dL (8.4-10.2); CARBON DIOXIDE 23 mmol/L (22-30); CHLORIDE 101 mmol/L (98-107); GLUCOSE 103 mg/dL (75-110); POTASSIUM 4.5 mmol/L (3.6-5.0); TOTAL PROTEIN 6.4 g/dL (6.3-8.2)
[2019-02-06 07:31] LABS: PLATELET COUNT 88 10^3/uL (150-450)
[2019-02-06 07:38] LABS: POLYCHROMASIA SLIGHT
[2019-02-06 07:39] LABS: ANISOCYTOSIS SLIGHT; OVALOCYTES 1+; PLATELET COMMENT DECREASED; POIKILOCYTOSIS SLIGHT; TEAR DROP CELLS SLIGHT; TOXIC VACUOLATION PRESENT
[2019-02-06 07:41] LABS: HEMOGLOBIN 7.5 g/dL (12.0-15.5)
[2019-02-06] MEDS ORDERED: NORMAL SALINE 250 ML IV PRN (08:40)
--- NOTE | 2019-02-06 09:07 | PDOC CONSULTATION ---
Consultation Consult Date: 02/06/19 Attending physician:: JIMMIE MUÑOZ Provider Consulted: SUZIE MORALES Consult reason:: Patient with known multiple myeloma with worsening disease recently started on dose attenuated RVD History of Present Illness Admission Date/PCP: 02/05/19 01:01 JIMMIE MUÑOZ Patient complains of: Syncope, weakness History of Present Illness: AYAZ BOYD is a 88 year old female who recently presented with syncope, she remembers leaving her office day before yesterday, and was doing well, she went and sat on a chair and was cooking something on the stove, it started to boil and she got up quickly to check on it and by the time she got there she felt lightheaded and fell to the floor. She was brought in because of the syncopal episode. She was found to have worsened renal failure as well as hyponatremia and was admitted for hydration. Her hemoglobin is dropped down to 7.5 today. She does not feel that great today. She also was found to have a E. coli UTI. Past Medical History Cardiac Medical History: Reports: Hyperlipidema - meds for 40 years, Hypertens ion - meds for 30 years Denies: Atrial Fibrillation, Congestive Heart Failure, Coronary Artery Dise ase, Myocardial Infarction, Peripheral Vascular Disease, Pulmonary Embolism, Heart Murmur Pulmonary Medical History: Denies: Asthma, Bronchitis, Chronic Obstructive Pulmonary Disease (COPD), Pneumonia, Respiratory Failure, Sleep Apnea, Tuberculosis Neurological Medical History: Denies: Seizures Endocrine Medical History: Reports: Other - multinodular goiter Denies: Hyperthyroidism, Hypothyroidism Renal/ Medical History: Denies: End Stage Renal Disease Malignancy Medical History: Reports: 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, Other - Multiple Myeloma Denies: Breast Cancer, Cervical Cancer, Leukemia, Lung Cancer, Ovarian Cancer GI Medical History: Denies: Crohn's Disease, Gastroesophageal Reflux Disease, Hepatitis, Hiatal Hernia Musculoskeltal Medical History: Reports: Arthritis, Other - postmenopausal osteoporosis Denies: Fibromyalgia Psychiatric Medical History: Reports: Depression Denies: Bipolar Disorder, Dementia, Post Traumatic Stress Disorder Hematology: Reports: Anemia Denies: Hemophilia, Sickle Cell Disease Infectious Medical History: Denies: HIV Past Surgical History Past Surgical History: Reports: Appendectomy - 1970, Hysterectomy - [facility] Denies: Amputation, Section, Cholecystectomy, Colostomy, Coronary Artery Bypass Graft, Gastric Bypass Surgery, Herniorrhaphy, Mastectomy, Pacemaker, Tonsillectomy, Tubal Ligation Social History Information Source: Patient Lives with: Family Smoking Status: Never Smoker Electronic Cigarette use?: No Frequency of Alcohol Use: None Hx Recreational Drug Use: No Hx Prescription Drug Abuse: No - Advance Directive Resuscitation Status: Full Code Family History Family History: Reviewed & Not Pertinent Parental Family History Reviewed: Yes Children Family History Reviewed: Yes Sibling(s) Family History Reviewed.: Yes Medication/Allergy Home Medications: Amlodipine Besylate 10 mg PO DAILY 10/29/14 Aspirin [Adult Low Dose Aspirin EC] 81 mg PO DAILY 02/05/19 Atorvastatin Calcium [Lipitor 20 mg Tablet] 20 mg PO DAILY 02/05/19 Calcium Carbonate/Vitamin D3 [Calcium 600-Vit D3 800 Caplet] 1 each PO DAILY 02/05/19 Cholecalciferol (Vitamin D3) [Vitamin D3 1000 Unit Tablet] 1,000 unit PO DAILY 02/05/19 Irbesartan/Hydrochlorothiazide [Irbesartan-Hctz 300-12.5 mg Tb] 1 tab PO DAILY 02/05/19 Lenalidomide [Revlimid] 1 cap PO ASDIR PRN 02/05/19 Levocetirizine Dihydrochloride [Xyzal] 5 mg PO DAILY 02/05/19 Sertraline HCl 50 mg PO DAILY 02/05/19 Sulfamethoxazole/Trimethoprim [Septra-Ds 800-160 mg Tablet] 1 tab PO MOTUWETHFR@1000 02/05/19 Allergies/Adverse Reactions: No Known Allergies Allergy (Unverified 10/29/14 08:38) Review of Systems Constitutional: ABSENT: chills, fever(s), headache(s), weight gain, weight loss Eyes: ABSENT: visual disturbances Ears: ABSENT: hearing changes Cardiovascular: ABSENT: chest pain, dyspnea on exertion, edema, orthropnea, palpitations Respiratory: ABSENT: cough, hemoptysis Gastrointestinal: ABSENT: abdominal pain, constipation, diarrhea, hematemesis, hematochezia, nausea, vomiting Genitourinary: ABSENT: dysuria, hematuria Musculoskeletal: ABSENT: joint swelling Integumentary: ABSENT: rash, wounds Neurological: ABSENT: abnormal gait, abnormal speech, confusion, dizziness, focal weakness, syncope Psychiatric: ABSENT: anxiety, depression, homidical ideation, suicidal ideation Endocrine: ABSENT: cold intolerance, heat intolerance, polydipsia, polyuria Hematologic/Lymphatic: ABSENT: easy bleeding, easy bruising Physical Exam Vital Signs: Temp Pulse Resp BP Pulse Ox 97.2 F 90 17 131/47 H 95 02/06/19 07:47 02/06/19 07:47 02/06/19 07:47 02/06/19 07:47 02/06/19 07:47 Intake & Output 02/05/19 02/06/19 02/07/19 06:59 06:59 06:59 Intake Total 1150 1994 Balance 1150 1994 Weight 68.7 kg 72 kg General appearance: PRESENT: no acute distress, well-developed, well-nourished Head exam: PRESENT: atraumatic, normocephalic Eye exam: PRESENT: conjunctiva pink, EOMI, PERRLA. ABSENT: scleral icterus Ear exam: PRESENT: normal external ear exam Mouth exam: PRESENT: moist, tongue midline Neck exam: ABSENT: carotid bruit, JVD, lymphadenopathy, thyromegaly Respiratory exam: PRESENT: clear to auscultation ijeoma. ABSENT: rales, rhonchi, wheezes Cardiovascular exam: PRESENT: RRR. ABSENT: diastolic murmur, rubs, systolic murmur Pulses: PRESENT: normal dorsalis pedis pul Vascular exam: PRESENT: normal capillary refill GI/Abdominal exam: PRESENT: normal bowel sounds, soft. ABSENT: distended, guarding, mass, organolmegaly, rebound, tenderness Rectal exam: PRESENT: deferred Extremities exam: PRESENT: full ROM. ABSENT: calf tenderness, clubbing, pedal e cayden Neurological exam: PRESENT: alert, awake, oriented to person, oriented to place, oriented to time, oriented to situation, CN II-XII grossly intact. ABSENT: motor sensory deficit Psychiatric exam: PRESENT: appropriate affect, normal mood. ABSENT: homicidal ideation, suicidal ideation Skin exam: PRESENT: dry, intact, warm. ABSENT: cyanosis, rash Results Laboratory Results: 02/06/19 06:00 02/06/19 06:00 02/06/19 02/06/19 06:00 06:00 WBC 5.8 RBC 2.39 L Hgb 7.5 L Hct 22.5 L MCV 94 MCH 31.4 MCHC 33.3 RDW 15.1 H Plt Count 88 L Seg Neutrophils % 78.9 H Sodium 132.1 L Potassium 4.5 Chloride 101 Carbon Dioxide 23 Anion Gap 8 BUN 39 H Creatinine 1.85 H Est GFR ( Amer) 31 L Glucose 103 Calcium 8.2 L Total Bilirubin 0.3 AST 150 H Alkaline Phosphatase 42 Total Protein 6.4 Albumin 2.8 L 02/04/19 19:19 Clean Catch Midstream Urine Culture - Final Escherichia Coli 02/04/19 02/04/19 02/04/19 19:19 19:19 23:05 Creatine Kinase 160 H CK-MB (CK-2) 2.44 Troponin I 0.046 0.105 02/05/19 02/05/19 02/05/19 05:32 05:32 11:15 Creatine Kinase 134 115 CK-MB (CK-2) 2.03 Troponin I 0.092 02/05/19 02/05/19 02/05/19 11:15 17:20 17:20 Creatine Kinase 140 H CK-MB (CK-2) 1.79 1.74 Troponin I 0.068 0.074 Impressions: Chest X-Ray 02/04/19 00:00 IMPRESSION: 1. No acute pulmonary findings. 2. Left PICC line in place Assessment & Plan - Diagnosis (1) Multiple myeloma Qualifiers: Multiple myeloma remission status: not in remission Qualified Code(s): C90.00 - Multiple myeloma not having achieved remission Is this a current diagnosis for this admission?: Yes Plan: Recently started on new therapy, his therapy is causing anemia and thrombocytopenia. She needs to hold her oral therapy until she is discharged. Once she is discharged we will give her some time to recover see her back as scheduled and plan to reinitiate therapy as long as she is stabilized (2) Pancytopenia Is this a current diagnosis for this admission?: Yes Plan: Hemoglobin down to 7.5, as patient is getting chemotherapy, will add iron studies to profile today, she probably will benefit from erythropoietin stability therapy as an outpatient. I will give 1 unit of packed red blood cell because of the syncopal episode and because of the fact that we will be giving chemotherapy that will reduce counts further in the future. - Time Time Spent: Greater than 70 Minutes
[2019-02-06] MEDS: AMLODIPINE BESYLATE 10 MG TABLET PO SCH (10:10)
[2019-02-06] MEDS: LOSARTAN POTASSIUM 50 MG TABLET PO SCH (10:10)
[2019-02-06] MEDS: HYDROCHLOROTHIAZIDE 12.5 MG TABLET PO SCH (10:11)
[2019-02-06] MEDS: CALCIUM CARBONATE 250 MG/VITAMIN D3 125 UNIT TABLET PO SCH ×2 (10:11→17:57)
[2019-02-06] MEDS: CALCIUM CARBONATE 500 MG TABLET PO SCH ×2 (10:11→17:57)
[2019-02-06] MEDS: CYANOCOBALAMIN (VITAMIN B-12) 1,000 MCG TABLET PO SCH (10:11)
[2019-02-06] MEDS: SERTRALINE HCL 50 MG TABLET PO SCH (10:11)
[2019-02-06] MEDS: MULTIVITAMIN TABLET PO SCH (10:11)
[2019-02-06] MEDS: CETIRIZINE 5 MG TABLET PO SCH (10:11)
[2019-02-06] MEDS: ASPIRIN 81 MG TABLET, CHEWABLE PO SCH (10:12)
[2019-02-06] MEDS: SULFAMETHOXAZOLE/TRIMETHOPRIM 800-160 MG TABLET PO SCH (10:12)
[2019-02-06] MEDS: DOXAZOSIN MESYLATE 1 MG TABLET PO SCH (10:12)
[2019-02-06] MEDS: VALACYCLOVIR HCL 500 MG TABLET PO SCH (10:13)
[2019-02-06] MEDS ORDERED: DIPHENHYDRAMINE HCL 25 MG CAPSULE PO ONE (13:00)
[2019-02-06] MEDS ORDERED: ACETAMINOPHEN 325 MG TABLET PO ONE (13:00)
[2019-02-06] MEDS: CEFTRIAXONE 1 GM/D5W RTU 1 GM/50 ML RTUPB IV SCH (17:59)
--- NOTE | 2019-02-06 19:04 | PDOC PROGRESS REPORT ---
Subjective Progress Note for:: 02/06/19 Subjective:: Patient was transfused 1 unit PRBC for hgb at 7.8gm/dL. Reported fatigue, intermittent chills, and sweating in axillae region. Appetite and p.o intake remain fair. She denied nausea, vomiting, abdominal pain, diarrhea, or constipation. Her urine culture grew E. coli resistant to Bactrim, Ciprofloxacin and Levofloxacin. Remain sensitive to Rocephin. Reason For Visit: SYNCOPE AND COLLAPSE,RAIZA,UTI,ELEVATED TROPONIN Physical Exam Vital Signs: Temp Pulse Resp BP Pulse Ox 97.5 F 43 L 17 124/42 L 98 02/06/19 15:46 02/06/19 15:46 02/06/19 15:46 02/06/19 15:46 02/06/19 15:46 Intake & Output 02/05/19 02/06/19 02/07/19 06:59 06:59 06:59 Intake Total 1150 1994 162 Balance 1150 1994 162 Weight 68.7 kg 72 kg General appearance: PRESENT: no acute distress, well-developed, well-nourished Head exam: PRESENT: atraumatic, normocephalic Eye exam: PRESENT: conjunctiva pink. ABSENT: scleral icterus Ear exam: PRESENT: normal external ear exam Mouth exam: PRESENT: moist Respiratory exam: PRESENT: clear to auscultation ijeoma Cardiovascular exam: PRESENT: RRR. ABSENT: diastolic murmur, rubs, systolic murmur Vascular exam: ABSENT: pallor GI/Abdominal exam: PRESENT: normal bowel sounds, soft. ABSENT: distended, gua rding, mass, organolmegaly, rebound, tenderness Extremities exam: ABSENT: pedal edema Neurological exam: PRESENT: alert, awake, oriented to person, oriented to place, oriented to time, oriented to situation, CN II-XII grossly intact. ABSENT: motor sensory deficit Psychiatric exam: PRESENT: appropriate affect, normal mood. ABSENT: homicidal ideation, suicidal ideation Skin exam: PRESENT: dry, warm Results Laboratory Results: 02/06/19 06:00 02/06/19 06:00 02/06/19 02/06/19 02/06/19 06:00 06:00 06:00 WBC 5.8 RBC 2.39 L Hgb 7.5 L Hct 22.5 L MCV 94 MCH 31.4 MCHC 33.3 RDW 15.1 H Plt Count 88 L Seg Neutrophils % 78.9 H Sodium 132.1 L Potassium 4.5 Chloride 101 Carbon Dioxide 23 Anion Gap 8 BUN 39 H Creatinine 1.85 H Est GFR ( Amer) 31 L Glucose 103 Calcium 8.2 L Iron < 10.1 L Total Bilirubin 0.3 AST 150 H Alkaline Phosphatase 42 Total Protein 6.4 Albumin 2.8 L Blood Type Antibody Screen 02/06/19 10:30 WBC RBC Hgb Hct MCV MCH MCHC RDW Plt Count Seg Neutrophils % Sodium Potassium Chloride Carbon Dioxide Anion Gap BUN Creatinine Est GFR ( Amer) Glucose Calcium Iron Total Bilirubin AST Alkaline Phosphatase Total Protein Albumin Blood Type A NEGATIVE Antibody Screen NEGATIVE 02/04/19 19:19 Clean Catch Midstream Urine Culture - Final Escherichia Coli 02/04/19 02/04/19 02/04/19 19:19 19:19 23:05 Creatine Kinase 160 H CK-MB (CK-2) 2.44 Troponin I 0.046 0.105 02/05/19 02/05/19 02/05/19 05:32 05:32 11:15 Creatine Kinase 134 115 CK-MB (CK-2) 2.03 Troponin I 0.092 02/05/19 02/05/19 02/05/19 11:15 17:20 17:20 Creatine Kinase 140 H CK-MB (CK-2) 1.79 1.74 Troponin I 0.068 0.074 Impressions: Chest X-Ray 02/04/19 00:00 IMPRESSION: 1. No acute pulmonary findings. 2. Left PICC line in place Assessment & Plan - Diagnosis (1) Syncope Qualifiers: Syncope type: unspecified Qualified Code(s): R55 - Syncope and collapse Is this a current diagnosis for this admission?: Yes (2) RAIZA (acute kidney injury) Is this a current diagnosis for this admission?: Yes (3) E. coli UTI (urinary tract infection) Is this a current diagnosis for this admission?: Yes Plan: Continue IV Rocephin coverage. (4) Multiple myeloma Qualifiers: Multiple myeloma remission status: not in remission Qualified Code(s): C90.00 - Multiple myeloma not having achieved remission Is this a current diagnosis for this admission?: Yes (5) HTN (hypertension) Qualifiers: Hypertension type: essential hypertension Qualified Code(s): I10 - Essenti al (primary) hypertension Is this a current diagnosis for this admission?: Yes (6) HLD (hyperlipidemia) Qualifiers: Hyperlipidemia type: unspecified Qualified Code(s): E78.5 - Hyperlipidemia, unspecified Is this a current diagnosis for this admission?: Yes (7) Postmenopausal osteoporosis Is this a current diagnosis for this admission?: Yes (8) Osteoarthritis involving multiple 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 Is this a current diagnosis for this admission?: Yes (9) Elevated troponin I level Is this a current diagnosis for this admission?: Yes - Time Time Spent with patient: 25-34 minutes Level of Care: IMCU Medications reviewed and adjusted accordingly: Yes Anticipated discharge: Home with Homehealth Within: Other - Inpatient Certification Based on my medical assessment, after consideration of the patient's comorbidities, presenting symptoms, or acuity I expect that the services needed warrant INPATIENT care.: Yes I certify that my determination is in accordance with my understanding of Medicare's requirements for reasonable and necessary INPATIENT services [42 CFR 412.3e].: Yes Medical Necessity: Significant Comorbidiites Make Outpatient Treatment Too Risky, Need Close Monitoring Due to Risk of Patient Decompensation, Need For IV Fluids, Need For Continuous Telemetry Monitoring, Need for IV Antibiotics, Risk of Complication if Not Cared For in Hospital, Risk of Diagnosis Which Will Require Inpatient Eval/Care/Monitoring Post Hospital Care: D/C Town Planner Documentation - Plan Summary Plan Summary: Follow up on post transfusion CBC. Continue IV Rocephin coverage. Medical oncologist input appreciated.
[2019-02-06] MEDS: ATORVASTATIN CALCIUM 20 MG TABLET PO SCH (20:59)
[2019-02-07 06:22] LABS: ABSOLUTE EOSINOPHILS # (AUTO) 0.1 10^3/uL (0.0-0.6); ABSOLUTE LYMPHOCYTES (AUTO) 0.5 10^3/uL (0.5-4.7); ABSOLUTE MONOCYTES (AUTO) 0.7 10^3/uL (0.1-1.4); ABSOLUTE NEUT (AUTO) 5.2 10^3/uL (1.7-8.2); BASOPHILS % (AUTO) 0.1 % (0-2); EOSINOPHILS % (AUTO) 1.8 % (0-6); HEMATOCRIT 23.9 % (36.0-47.0); HEMOGLOBIN 8.3 g/dL (12.0-15.5); LYMPHOCYTES % (AUTO) 7.2 % (13-45); MEAN CORPUSCULAR HEMOGLOBIN 32.1 pg (27.0-33.4); MEAN CORPUSCULAR HGB CONC 34.9 g/dL (32.0-36.0); MEAN CORPUSCULAR VOLUME 92 fl (80-97); MONOCYTES % (AUTO) 11.1 % (3-13); RED CELL DISTRIBUTION WIDTH 15.6 % (11.5-14.0); SEGMENTED NEUTROPHILS % (AUTO) 79.8 % (42-78); TOTAL CELLS COUNTED % (AUTO) 100 %; WHITE BLOOD COUNT 6.5 10^3/uL (4.0-10.5)
[2019-02-07 06:37] LABS: ALBUMIN 2.6 g/dL (3.5-5.0); ALKALINE PHOSPHATASE 48 U/L (38-126); ANION GAP 6 (5-19); ASPARTATE AMINO TRANSFERASE 91 U/L (14-36); BILIRUBIN,DIRECT 0.1 mg/dL (0.0-0.4); BILIRUBIN,TOTAL 0.4 mg/dL (0.2-1.3); BLOOD UREA NITROGEN 34 mg/dL (7-20); CALCIUM 7.9 mg/dL (8.4-10.2); CARBON DIOXIDE 23 mmol/L (22-30); CHLORIDE 99 mmol/L (98-107); GLUCOSE 86 mg/dL (75-110); POTASSIUM 4.4 mmol/L (3.6-5.0); TOTAL PROTEIN 6.2 g/dL (6.3-8.2)
[2019-02-07 06:42] LABS: PLATELET COUNT 80 10^3/uL (150-450)
[2019-02-07] MEDS: HYDROCHLOROTHIAZIDE 12.5 MG TABLET PO SCH (10:02)
[2019-02-07] MEDS: SERTRALINE HCL 50 MG TABLET PO SCH (10:02)
[2019-02-07] MEDS: CYANOCOBALAMIN (VITAMIN B-12) 1,000 MCG TABLET PO SCH (10:02)
[2019-02-07] MEDS: CALCIUM CARBONATE 250 MG/VITAMIN D3 125 UNIT TABLET PO SCH ×2 (10:03→17:29)
[2019-02-07] MEDS: MULTIVITAMIN TABLET PO SCH (10:03)
[2019-02-07] MEDS: SULFAMETHOXAZOLE/TRIMETHOPRIM 800-160 MG TABLET PO SCH (10:03)
[2019-02-07] MEDS: CETIRIZINE 5 MG TABLET PO SCH (10:03)
[2019-02-07] MEDS: LOSARTAN POTASSIUM 50 MG TABLET PO SCH (10:03)
[2019-02-07] MEDS: AMLODIPINE BESYLATE 10 MG TABLET PO SCH (10:04)
[2019-02-07] MEDS: CALCIUM CARBONATE 500 MG TABLET PO SCH ×2 (10:04→17:29)
[2019-02-07] MEDS: VALACYCLOVIR HCL 500 MG TABLET PO SCH (10:04)
[2019-02-07] MEDS: ASPIRIN 81 MG TABLET, CHEWABLE PO SCH (10:05)
[2019-02-07] MEDS: DOXAZOSIN MESYLATE 1 MG TABLET PO SCH (10:05)
--- NOTE | 2019-02-07 11:06 | PDOC PROGRESS REPORT ---
Subjective Progress Note for:: 02/07/19 Subjective:: Doing better today, status post transfusion. Today I had a long discussion about next steps of care with daughter who is at bedside, stressed the importance of good oral hydration and nutrition, patient is going to hold Revlimid as well as not get the Velcade shot next week, and we will still get CBC drawn on Saturday next week, and follow-up February 18 is already set. Reason For Visit: SYNCOPE AND COLLAPSE,RAIZA,UTI,ELEVATED TROPONIN Physical Exam Vital Signs: Temp Pulse Resp BP Pulse Ox 98.8 F 57 L 16 144/47 H 100 02/07/19 07:59 02/07/19 07:59 02/07/19 07:59 02/07/19 07:59 02/07/19 07:59 Intake & Output 02/06/19 02/07/19 02/08/19 06:59 06:59 06:59 Intake Total 1994 1969 Balance 1994 1969 Weight 72 kg 76.4 kg General appearance: PRESENT: no acute distress, well-developed, well-nourished Head exam: PRESENT: atraumatic, normocephalic Eye exam: PRESENT: conjunctiva pink, EOMI, PERRLA. ABSENT: scleral icterus Ear exam: PRESENT: normal external ear exam Mouth exam: PRESENT: moist, tongue midline Neck exam: ABSENT: carotid bruit, JVD, lymphadenopathy, thyromegaly Respiratory exam: PRESENT: clear to auscultation ijeoma. ABSENT: rales, rhonchi, wheezes Cardiovascular exam: PRESENT: RRR. ABSENT: diastolic murmur, rubs, systolic murmur Pulses: PRESENT: normal dorsalis pedis pul Vascular exam: PRESENT: normal capillary refill GI/Abdominal exam: PRESENT: normal bowel sounds, soft. ABSENT: distended, guarding, mass, organolmegaly, rebound, tenderness Rectal exam: PRESENT: deferred Extremities exam: PRESENT: full ROM. ABSENT: calf tenderness, clubbing, pedal edema Neurological exam: PRESENT: alert, awake, oriented to person, oriented to place, oriented to time, oriented to situation, CN II-XII grossly intact. ABSENT: motor sensory deficit Psychiatric exam: PRESENT: appropriate affect, normal mood. ABSENT: homicidal ideation, suicidal ideation Skin exam: PRESENT: dry, intact, warm. ABSENT: cyanosis, rash Results Laboratory Results: 02/07/19 06:05 02/07/19 06:05 02/06/19 02/07/19 02/07/19 10:30 06:05 06:05 WBC 6.5 RBC 2.60 L Hgb 8.3 L Hct 23.9 L MCV 92 MCH 32.1 MCHC 34.9 RDW 15.6 H Plt Count 80 L Seg Neutrophils % 79.8 H Sodium 128.4 L Potassium 4.4 Chloride 99 Carbon Dioxide 23 Anion Gap 6 BUN 34 H Creatinine 1.52 H Est GFR ( Amer) 39 L Glucose 86 Calcium 7.9 L Total Bilirubin 0.4 AST 91 H Alkaline Phosphatase 48 Total Protein 6.2 L Albumin 2.6 L Blood Type A NEGATIVE Antibody Screen NEGATIVE 02/04/19 19:19 Clean Catch Midstream Urine Culture - Final Escherichia Coli 02/04/19 02/04/19 02/04/19 19:19 19:19 23:05 Creatine Kinase 160 H CK-MB (CK-2) 2.44 Troponin I 0.046 0.105 02/05/19 02/05/19 02/05/19 05:32 05:32 11:15 Creatine Kinase 134 115 CK-MB (CK-2) 2.03 Troponin I 0.092 02/05/19 02/05/19 02/05/19 11:15 17:20 17:20 Creatine Kinase 140 H CK-MB (CK-2) 1.79 1.74 Troponin I 0.068 0.074 Impressions: Chest X-Ray 02/04/19 00:00 IMPRESSION: 1. No acute pulmonary findings. 2. Left PICC line in place Assessment & Plan - Diagnosis (1) Multiple myeloma Qualifiers: Multiple myeloma remission status: not in remission Qualified Code(s): C90.00 - Multiple myeloma not having achieved remission Is this a current diagnosis for this admission?: Yes Plan: Continue to monitor, holding therapy as above (2) Pancytopenia Is this a current diagnosis for this admission?: Yes Plan: Hemoglobin stable posttransfusion, will monitor - Time Time Spent with patient: 35 or more minutes - Inpatient Certification Based on my medical assessment, after consideration of the patient's comorbidities, presenting symptoms, or acuity I expect that the services needed warrant INPATIENT care.: Yes I certify that my determination is in accordance with my understanding of Medicare's requirements for reasonable and necessary INPATIENT services [42 CFR 412.3e].: Yes Medical Necessity: Need For IV Fluids, Risk of Complication if Not Cared For in Hospital
--- NOTE | 2019-02-07 14:34 | PDOC PROGRESS REPORT ---
Subjective Progress Note for:: 02/07/19 Subjective:: Patient reported some improvement in her energy level but still felt weak. Appetite and p.o intake improving. No nausea, vomiting, or abdominal pain. No fever or chills. No chest pain or difficulty with breathing. Reason For Visit: SYNCOPE AND COLLAPSE,RAIZA,UTI,ELEVATED TROPONIN Physical Exam Vital Signs: Temp Pulse Resp BP Pulse Ox 97.9 F 61 16 156/64 H 100 02/07/19 12:16 02/07/19 12:16 02/07/19 12:16 02/07/19 12:16 02/07/19 12:16 Intake & Output 02/06/19 02/07/19 02/08/19 06:59 06:59 06:59 Intake Total 1994 Balance 1994 Weight 72 kg 76.4 kg General appearance: PRESENT: no acute distress, well-developed, well-nourished Head exam: PRESENT: atraumatic, normocephalic Eye exam: PRESENT: conjunctiva pink. ABSENT: pallor, scleral icterus Ear exam: PRESENT: normal external ear exam Mouth exam: PRESENT: moist Respiratory exam: PRESENT: clear to auscultation ijeoma Cardiovascular exam: PRESENT: RRR. ABSENT: diastolic murmur, rubs, systolic murmur GI/Abdominal exam: PRESENT: normal bowel sounds, soft. ABSENT: distended, guarding, mass, organomegaly, rebound, tenderness Extremities exam: ABSENT: pedal edema Neurological exam: PRESENT: alert, awake, oriented to person, oriented to place, oriented to time, oriented to situation, CN II-XII grossly intact. ABSENT: motor sensory deficit Psychiatric exam: PRESENT: appropriate affect, normal mood. ABSENT: homicidal ideation, suicidal ideation Skin exam: PRESENT: dry, warm Results Laboratory Results: 02/07/19 06:05 02/07/19 06:05 02/07/19 02/07/19 06:05 06:05 WBC 6.5 RBC 2.60 L Hgb 8.3 L Hct 23.9 L MCV 92 MCH 32.1 MCHC 34.9 RDW 15.6 H Plt Count 80 L Seg Neutrophils % 79.8 H Sodium 128.4 L Potassium 4.4 Chloride 99 Carbon Dioxide 23 Anion Gap 6 BUN 34 H Creatinine 1.52 H Est GFR ( Amer) 39 L Glucose 86 Calcium 7.9 L Total Bilirubin 0.4 AST 91 H Alkaline Phosphatase 48 Total Protein 6.2 L Albumin 2.6 L 02/04/19 02/04/19 02/04/19 19:19 19:19 23:05 Creatine Kinase 160 H CK-MB (CK-2) 2.44 Troponin I 0.046 0.105 02/05/19 02/05/19 02/05/19 05:32 05:32 11:15 Creatine Kinase 134 115 CK-MB (CK-2) 2.03 Troponin I 0.092 02/05/19 02/05/19 02/05/19 11:15 17:20 17:20 Creatine Kinase 140 H CK-MB (CK-2) 1.79 1.74 Troponin I 0.068 0.074 Impressions: Chest X-Ray 02/04/19 00:00 IMPRESSION: 1. No acute pulmonary findings. 2. Left PICC line in place Assessment & Plan - Diagnosis (1) Syncope Qualifiers: Syncope type: unspecified Qualified Code(s): R55 - Syncope and collapse Is this a current diagnosis for this admission?: Yes (2) RAIZA (acute kidney injury) Is this a current diagnosis for this admission?: Yes (3) E. coli UTI (urinary tract infection) Is this a current diagnosis for this admission?: Yes (4) Multiple myeloma Qualifiers: Multiple myeloma remission status: not in remission Qualified Code(s): C90.00 - Multiple myeloma not having achieved remission Is this a current diagnosis for this admission?: Yes (5) HTN (hypertension) Qualifiers: Hypertension type: essential hypertension Qualified Code(s): I10 - Essential (primary) hypertension Is this a current diagnosis for this admission?: Yes (6) HLD (hyperlipidemia) Qualifiers: Hyperlipidemia type: unspecified Qualified Code(s): E78.5 - Hyperlipidemia, unspecified Is this a current diagnosis for this admission?: Yes (7) Postmenopausal osteoporosis Is this a current diagnosis for this admission?: Yes (8) Osteoarthritis involving multiple 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 Is this a current diagnosis for this admission?: Yes (9) Elevated troponin I level Is this a current diagnosis for this admission?: Yes (10) Anemia requiring transfusions Is this a current diagnosis for this admission?: Yes Plan: She will receive 1 unit PRBC transfusion. - Time Time Spent with patient: 25-34 minutes Level of Care: IMCU Medications reviewed and adjusted accordingly: Yes Anticipated discharge: Home with Homehealth Within: Other - Inpatient Certification Based on my medical assessment, after consideration of the patient's comorbidities, presenting symptoms, or acuity I expect that the services needed warrant INPATIENT care.: Yes I certify that my determination is in accordance with my understanding of Medicare's requirements for reasonable and necessary INPATIENT services [42 CFR 412.3e].: Yes Medical Necessity: Significant Comorbidiites Make Outpatient Treatment Too Risky, Need Close Monitoring Due to Risk of Patient Decompensation, Need For IV Fluids, Need For Continuous Telemetry Monitoring, Need for IV Antibiotics, Risk of Complication if Not Cared For in Hospital, Risk of Diagnosis Which Will Require Inpatient Eval/Care/Monitoring Post Hospital Care: D/C Surveillance Director Documentation - Plan Summary Plan Summary: She will receive 1 unit PRBC transfusion. Continue all other current medication management. Obtain CBC with diff and CMP in am.
[2019-02-07] MEDS ORDERED: NORMAL SALINE 250 ML IV PRN ×2 (14:35)
[2019-02-07] MEDS: CEFTRIAXONE 1 GM/D5W RTU 1 GM/50 ML RTUPB IV SCH (17:27)
[2019-02-07] MEDS: NORMAL SALINE 1000 ML 1,000 ML IV PRN (19:00)
[2019-02-07] MEDS: ATORVASTATIN CALCIUM 20 MG TABLET PO SCH (21:45)
[2019-02-07 22:17] LABS: ABSOLUTE EOSINOPHILS # (AUTO) 0.2 10^3/uL (0.0-0.6); ABSOLUTE LYMPHOCYTES (AUTO) 0.6 10^3/uL (0.5-4.7); ABSOLUTE MONOCYTES (AUTO) 0.9 10^3/uL (0.1-1.4); HEMATOCRIT 27.7 % (36.0-47.0); HEMOGLOBIN 9.4 g/dL (12.0-15.5); LYMPHOCYTES % (AUTO) 7.6 % (13-45); MEAN CORPUSCULAR HEMOGLOBIN 31.6 pg (27.0-33.4); MEAN CORPUSCULAR HGB CONC 33.9 g/dL (32.0-36.0); MEAN CORPUSCULAR VOLUME 93 fl (80-97); MONOCYTES % (AUTO) 11.5 % (3-13); RED BLOOD COUNT 2.97 10^6/uL (3.72-5.28); RED CELL DISTRIBUTION WIDTH 15.6 % (11.5-14.0); SEGMENTED NEUTROPHILS % (AUTO) 78.9 % (42-78); TOTAL CELLS COUNTED % (AUTO) 100 %; WHITE BLOOD COUNT 7.6 10^3/uL (4.0-10.5)
[2019-02-07 22:42] LABS: PLATELET COUNT 81 10^3/uL (150-450)
[2019-02-08] MEDS: NORMAL SALINE 1000 ML 1,000 ML IV PRN ×3 (00:32→17:13)
[2019-02-08 06:45] LABS: ABSOLUTE EOSINOPHILS # (AUTO) 0.2 10^3/uL (0.0-0.6); ABSOLUTE LYMPHOCYTES (AUTO) 0.5 10^3/uL (0.5-4.7); ABSOLUTE MONOCYTES (AUTO) 0.9 10^3/uL (0.1-1.4); ABSOLUTE NEUT (AUTO) 6.3 10^3/uL (1.7-8.2); BASOPHILS % (AUTO) 0.1 % (0-2); EOSINOPHILS % (AUTO) 2.2 % (0-6); HEMATOCRIT 27.2 % (36.0-47.0); HEMOGLOBIN 9.3 g/dL (12.0-15.5); LYMPHOCYTES % (AUTO) 6.5 % (13-45); MEAN CORPUSCULAR HEMOGLOBIN 31.8 pg (27.0-33.4); MEAN CORPUSCULAR HGB CONC 34.1 g/dL (32.0-36.0); MEAN CORPUSCULAR VOLUME 93 fl (80-97); MONOCYTES % (AUTO) 11.6 % (3-13); RED BLOOD COUNT 2.92 10^6/uL (3.72-5.28); RED CELL DISTRIBUTION WIDTH 15.6 % (11.5-14.0); SEGMENTED NEUTROPHILS % (AUTO) 79.6 % (42-78); TOTAL CELLS COUNTED % (AUTO) 100 %; WHITE BLOOD COUNT 7.9 10^3/uL (4.0-10.5)
[2019-02-08 07:00] LABS: ALBUMIN 2.4 g/dL (3.5-5.0); ALKALINE PHOSPHATASE 43 U/L (38-126); ANION GAP 6 (5-19); ASPARTATE AMINO TRANSFERASE 58 U/L (14-36); BILIRUBIN,DIRECT 0.1 mg/dL (0.0-0.4); BILIRUBIN,TOTAL 0.6 mg/dL (0.2-1.3); BLOOD UREA NITROGEN 21 mg/dL (7-20); CALCIUM 7.7 mg/dL (8.4-10.2); CARBON DIOXIDE 23 mmol/L (22-30); CHLORIDE 106 mmol/L (98-107); GLUCOSE 79 mg/dL (75-110); POTASSIUM 4.2 mmol/L (3.6-5.0); TOTAL PROTEIN 6.1 g/dL (6.3-8.2)
[2019-02-08 07:10] LABS: PLATELET COUNT 86 10^3/uL (150-450)
[2019-02-08] MEDS: AMLODIPINE BESYLATE 10 MG TABLET PO SCH (09:13)
[2019-02-08] MEDS: CALCIUM CARBONATE 250 MG/VITAMIN D3 125 UNIT TABLET PO SCH ×2 (09:14→17:12)
[2019-02-08] MEDS: DOXAZOSIN MESYLATE 1 MG TABLET PO SCH (09:14)
[2019-02-08] MEDS: VALACYCLOVIR HCL 500 MG TABLET PO SCH (09:14)
[2019-02-08] MEDS: SULFAMETHOXAZOLE/TRIMETHOPRIM 800-160 MG TABLET PO SCH (09:14)
[2019-02-08] MEDS: HYDROCHLOROTHIAZIDE 12.5 MG TABLET PO SCH (09:14)
[2019-02-08] MEDS: ASPIRIN 81 MG TABLET, CHEWABLE PO SCH (09:14)
[2019-02-08] MEDS: CALCIUM CARBONATE 500 MG TABLET PO SCH ×2 (09:14→17:12)
[2019-02-08] MEDS: CYANOCOBALAMIN (VITAMIN B-12) 1,000 MCG TABLET PO SCH (09:14)
[2019-02-08] MEDS: CETIRIZINE 5 MG TABLET PO SCH (09:14)
[2019-02-08] MEDS: LOSARTAN POTASSIUM 50 MG TABLET PO SCH (09:14)
[2019-02-08] MEDS: SERTRALINE HCL 50 MG TABLET PO SCH (09:15)
[2019-02-08] MEDS: MULTIVITAMIN TABLET PO SCH (09:15)
--- NOTE | 2019-02-08 16:18 | PDOC PROGRESS REPORT ---
Subjective Progress Note for:: 02/08/19 Subjective:: No chest pain or difficulty with breathing. Appetite and p.o intake remain a challenge. No nausea, vomiting, or abdominal pain. No fever or chills. Reason For Visit: SYNCOPE AND COLLAPSE,RAIZA,UTI,ELEVATED TROPONIN Physical Exam Vital Signs: Temp Pulse Resp BP Pulse Ox 98.2 F 56 L 17 134/66 H 97 02/08/19 11:36 02/08/19 14:00 02/08/19 11:36 02/08/19 11:36 02/08/19 11:36 Intake & Output 02/07/19 02/08/19 02/09/19 06:59 06:59 06:59 Intake Total 1969 1836 1433 Balance 1969 1836 143 Weight 76.4 kg 75.4 kg Physical Exam: General appearance: PRESENT: no acute distress, well-developed, well-nourished Head exam: PRESENT: atraumatic, normocephalic Eye exam: PRESENT: conjunctiva pink. ABSENT: pallor, scleral icterus Ear exam: PRESENT: normal external ear exam Mouth exam: PRESENT: moist Respiratory exam: PRESENT: clear to auscultation ijeoma Cardiovascular exam: PRESENT: RRR. ABSENT: diastolic murmur, rubs, systolic murmur GI/Abdominal exam: PRESENT: normal bowel sounds, soft. ABSENT: distended, guarding, mass, organomegaly, rebound, tenderness Extremities exam: ABSENT: pedal edema Neurological exam: PRESENT: alert, awake, oriented to person, oriented to place, oriented to time, oriented to situation, CN II-XII grossly intact. ABSENT: motor sensory deficit Psychiatric exam: PRESENT: appropriate affect, normal mood. ABSENT: homicidal ideation, suicidal ideation Skin exam: PRESENT: dry, warm Results Laboratory Results: 02/08/19 05:30 02/08/19 05:30 02/06/19 02/07/19 02/08/19 10:30 21:45 05:30 WBC 7.6 7.9 RBC 2.97 L 2.92 L Hgb 9.4 L 9.3 L Hct 27.7 L 27.2 L MCV 93 93 MCH 31.6 31.8 MCHC 33.9 34.1 RDW 15.6 H 15.6 H Plt Count 81 L 86 L Seg Neutrophils % 78.9 H 79.6 H Sodium Potassium Chloride Carbon Dioxide Anion Gap BUN Creatinine Est GFR ( Amer) Glucose Calcium Total Bilirubin AST Alkaline Phosphatase Total Protein Albumin Blood Type A NEGATIVE Antibody Screen NEGATIVE 02/08/19 05:30 WBC RBC Hgb Hct MCV MCH MCHC RDW Plt Count Seg Neutrophils % Sodium 135.2 L Potassium 4.2 Chloride 106 Carbon Dioxide 23 Anion Gap 6 BUN 21 H Creatinine 1.11 Est GFR ( Amer) 56 L Glucose 79 Calcium 7.7 L Total Bilirubin 0.6 AST 58 H Alkaline Phosphatase 43 Total Protein 6.1 L Albumin 2.4 L Blood Type Antibody Screen 02/04/19 02/04/19 02/04/19 19:19 19:19 23:05 Creatine Kinase 160 H CK-MB (CK-2) 2.44 Troponin I 0.046 0.105 02/05/19 02/05/19 02/05/19 05:32 05:32 11:15 Creatine Kinase 134 115 CK-MB (CK-2) 2.03 Troponin I 0.092 02/05/19 02/05/19 02/05/19 11:15 17:20 17:20 Creatine Kinase 140 H CK-MB (CK-2) 1.79 1.74 Troponin I 0.068 0.074 Impressions: Chest X-Ray 02/04/19 00:00 IMPRESSION: 1. No acute pulmonary findings. 2. Left PICC line in place Assessment & Plan - Diagnosis (1) Syncope Qualifiers: Syncope type: unspecified Qualified Code(s): R55 - Syncope and collapse Is this a current diagnosis for this admission?: Yes (2) RAIZA (acute kidney injury) Is this a current diagnosis for this admission?: Yes (3) E. coli UTI (urinary tract infection) Is this a current diagnosis for this admission?: Yes (4) Multiple myeloma Qualifiers: Multiple myeloma remission status: not in remission Qualified Code(s): C90.00 - Multiple myeloma not having achieved remission Is this a current diagnosis for this admission?: Yes (5) HTN (hypertension) Qualifiers: Hypertension type: essential hypertension Qualified Code(s): I10 - Essential (primary) hypertension Is this a current diagnosis for this admission?: Yes (6) HLD (hyperlipidemia) Qualifiers: Hyperlipidemia type: unspecified Qualified Code(s): E78.5 - Hyperlipidemia, unspecified Is this a current diagnosis for this admission?: Yes (7) Postmenopausal osteoporosis Is this a current diagnosis for this admission?: Yes (8) Osteoarthritis involving multiple 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 Is this a current diagnosis for this admission?: Yes (9) Elevated troponin I level Is this a current diagnosis for this admission?: Yes (10) Anemia requiring transfusions Is this a current diagnosis for this admission?: Yes - Time Time Spent with patient: 25-34 minutes Level of Care: IMCU Medications reviewed and adjusted accordingly: Yes Anticipated discharge: Home Within: Other - Inpatient Certification Based on my medical assessment, after consideration of the patient's com orbidities, presenting symptoms, or acuity I expect that the services needed warrant INPATIENT care.: Yes I certify that my determination is in accordance with my understanding of Medicare's requirements for reasonable and necessary INPATIENT services [42 CFR 412.3e].: Yes Medical Necessity: Significant Comorbidiites Make Outpatient Treatment Too Risky, Need Close Monitoring Due to Risk of Patient Decompensation, Need For IV Fluids, Need for IV Antibiotics, Risk of Complication if Not Cared For in Hospital, Risk of Diagnosis Which Will Require Inpatient Eval/Care/Monitoring Post Hospital Care: D/C Customer Advocate Documentation - Plan Summary Plan Summary: Continue current medication management. Start on Ferrous sulfate 300 mg p.o bid and Vitamin C 500 mg p.o bid. Repeat CBC in Am.
[2019-02-08] MEDS: FERROUS SULFATE LIQUID 300 MG/5 ML UDC PO SCH (17:12)
[2019-02-08] MEDS: ASCORBIC ACID 500 MG TABLET PO SCH (17:12)
[2019-02-08] MEDS: CEFTRIAXONE 1 GM/D5W RTU 1 GM/50 ML RTUPB IV SCH (17:17)
[2019-02-08] MEDS: ATORVASTATIN CALCIUM 20 MG TABLET PO SCH (21:08)
[2019-02-08] MEDS ORDERED: ACETAMINOPHEN 325 MG TABLET PO PRN (21:27)
[2019-02-08] MEDS ORDERED: TRAMADOL HCL 50 MG TABLET PO PRN (21:30)
[2019-02-09] MEDS: NORMAL SALINE 1000 ML 1,000 ML IV PRN ×2 (03:20→11:03)
[2019-02-09 06:29] LABS: HEMATOCRIT 26.8 % (36.0-47.0); HEMOGLOBIN 9.1 g/dL (12.0-15.5); MEAN CORPUSCULAR HEMOGLOBIN 31.9 pg (27.0-33.4); MEAN CORPUSCULAR HGB CONC 33.8 g/dL (32.0-36.0); MEAN CORPUSCULAR VOLUME 94 fl (80-97); RED BLOOD COUNT 2.84 10^6/uL (3.72-5.28); RED CELL DISTRIBUTION WIDTH 15.8 % (11.5-14.0); WHITE BLOOD COUNT 7.9 10^3/uL (4.0-10.5)
[2019-02-09 07:01] LABS: PLATELET COUNT 94 10^3/uL (150-450)
--- NOTE | 2019-02-09 08:08 | PDOC PROGRESS REPORT ---
Subjective Progress Note for:: 02/09/19 Subjective:: Pt improved, eating more over last 24 hours, taking in better oral hydration. Went over chemo plan w/ daughter today, Revlimid (oral med) will be held x 1 wk and pt will not get Velcade (shot) this week. She will get cbc in office either or sat depending on when medicine team feels pt is ready for dc. We have OV appt next week Reason For Visit: SYNCOPE AND COLLAPSE,RAIZA,UTI,ELEVATED TROPONIN Physical Exam Vital Signs: Temp Pulse Resp BP Pulse Ox 99.8 F 56 L 20 167/67 H 100 02/09/19 04:36 02/09/19 06:35 02/09/19 04:36 02/09/19 04:36 02/09/19 04:36 Intake & Output 02/08/19 02/09/19 02/10/19 06:59 06:59 06:59 Intake Total 1837 4278 Balance 1837 4278 Weight 75.4 kg 77.4 kg General appearance: PRESENT: no acute distress, well-developed, well-nourished Head exam: PRESENT: atraumatic, normocephalic Eye exam: PRESENT: conjunctiva pink, EOMI, PERRLA. ABSENT: scleral icterus Ear exam: PRESENT: normal external ear exam Mouth exam: PRESENT: moist, tongue midline Neck exam: ABSENT: carotid bruit, JVD, lymphadenopathy, thyromegaly Respiratory exam: PRESENT: clear to auscultation ijeoma. ABSENT: rales, rhonchi, wheezes Cardiovascular exam: PRESENT: RRR. ABSENT: diastolic murmur, rubs, systolic murmur Pulses: PRESENT: normal dorsalis pedis pul Vascular exam: PRESENT: normal capillary refill GI/Abdominal exam: PRESENT: normal bowel sounds, soft. ABSENT: distended, guarding, mass, organolmegaly, rebound, tenderness Rectal exam: PRESENT: deferred Extremities exam: PRESENT: full ROM. ABSENT: calf tenderness, clubbing, pedal edema Neurological exam: PRESENT: alert, awake, oriented to person, oriented to place, oriented to time, oriented to situation, CN II-XII grossly intact. ABSENT: motor sensory deficit Psychiatric exam: PRESENT: appropriate affect, normal mood. ABSENT: homicidal ideation, suicidal ideation Skin exam: PRESENT: dry, intact, warm. ABSENT: cyanosis, rash Results Laboratory Results: 02/09/19 06:15 02/08/19 05:30 02/09/19 06:15 WBC 7.9 RBC 2.84 L Hgb 9.1 L Hct 26.8 L MCV 94 MCH 31.9 MCHC 33.8 RDW 15.8 H Plt Count 94 L 02/04/19 02/04/19 02/04/19 19:19 19:19 23:05 Creatine Kinase 160 H CK-MB (CK-2) 2.44 Troponin I 0.046 0.105 02/05/19 02/05/19 02/05/19 05:32 05:32 11:15 Creatine Kinase 134 115 CK-MB (CK-2) 2.03 Troponin I 0.092 02/05/19 02/05/19 02/05/19 11:15 17:20 17:20 Creatine Kinase 140 H CK-MB (CK-2) 1.79 1.74 Troponin I 0.068 0.074 Impressions: Chest X-Ray 02/04/19 00:00 IMPRESSION: 1. No acute pulmonary findings. 2. Left PICC line in place Assessment & Plan - Diagnosis (1) Multiple myeloma Qualifiers: Multiple myeloma remission status: not in remission Qualified Code(s): C90.00 - Multiple myeloma not having achieved remission Is this a current diagnosis for this admission?: Yes Plan: Rx on hold as above (2) Pancytopenia Is this a current diagnosis for this admission?: Yes Plan: Improved - Time Time Spent with patient: 15-24 minutes
[2019-02-09] MEDS: CYANOCOBALAMIN (VITAMIN B-12) 1,000 MCG TABLET PO SCH (09:17)
[2019-02-09] MEDS: HYDROCHLOROTHIAZIDE 12.5 MG TABLET PO SCH (09:17)
[2019-02-09] MEDS: SERTRALINE HCL 50 MG TABLET PO SCH (09:17)
[2019-02-09] MEDS: CALCIUM CARBONATE 250 MG/VITAMIN D3 125 UNIT TABLET PO SCH ×2 (09:17→17:30)
[2019-02-09] MEDS: LOSARTAN POTASSIUM 50 MG TABLET PO SCH (09:17)
[2019-02-09] MEDS: AMLODIPINE BESYLATE 10 MG TABLET PO SCH (09:17)
[2019-02-09] MEDS: CETIRIZINE 5 MG TABLET PO SCH (09:17)
[2019-02-09] MEDS: SULFAMETHOXAZOLE/TRIMETHOPRIM 800-160 MG TABLET PO SCH (09:17)
[2019-02-09] MEDS: CALCIUM CARBONATE 500 MG TABLET PO SCH ×2 (09:17→17:30)
[2019-02-09] MEDS: FERROUS SULFATE LIQUID 300 MG/5 ML UDC PO SCH ×2 (09:17→17:29)
[2019-02-09] MEDS: MULTIVITAMIN TABLET PO SCH (09:18)
[2019-02-09] MEDS: VALACYCLOVIR HCL 500 MG TABLET PO SCH (09:18)
[2019-02-09] MEDS: ASPIRIN 81 MG TABLET, CHEWABLE PO SCH (09:18)
[2019-02-09] MEDS: DOXAZOSIN MESYLATE 1 MG TABLET PO SCH (09:18)
[2019-02-09] MEDS: ASCORBIC ACID 500 MG TABLET PO SCH ×2 (09:18→17:30)
[2019-02-09] MEDS: CEFTRIAXONE 1 GM/D5W RTU 1 GM/50 ML RTUPB IV SCH (17:30)
--- NOTE | 2019-02-09 17:37 | PDOC DISCHARGE SUMMARY ---
Impression - Admit/DC Date/PCP Admission Date/Primary Care Provider: 02/05/19 01:01 JIMMIE MUÑOZ Discharge Date: 02/09/19 - Discharge Diagnosis (1) Syncope Is this a current diagnosis for this admission?: Yes (2) RAIZA (acute kidney injury) Is this a current diagnosis for this admission?: Yes (3) E. coli UTI (urinary tract infection) Is this a current diagnosis for this admission?: Yes (4) Multiple myeloma Is this a current diagnosis for this admission?: Yes (5) HTN (hypertension) Is this a current diagnosis for this admission?: Yes (6) HLD (hyperlipidemia) Is this a current diagnosis for this admission?: Yes (7) Postmenopausal osteoporosis Is this a current diagnosis for this admission?: Yes (8) Osteoarthritis involving multiple 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 Is this a current diagnosis for this admission?: Yes (9) Elevated troponin I level Is this a current diagnosis for this admission?: Yes (10) Anemia requiring transfusions Is this a current diagnosis for this admission?: Yes - Assessment Summary: Patient was admitted for postural syncope and found to have UTI. Her urine culture grew E. coli that was sensitive to Ceftriaxone. In view of her immunocompromise status due to Multiple Myeloma and recent chemotherapy she was treated with IV Rocephin for 5 days total. She was seen in consultation by Dr. Gutierrez, medical oncologist, partner of Dr. Louis of [facility]. She was instructed to hold off on her oral chemotherapy regimen until office follow up upon discharge. She was transfused 2 units of PRBC during this hospitalization due to significant anemia. Her CBC indices were on upward trend at the time of her discharge. her oncology team will follow up and treat appropriately. She will follow up with Dr. Louis and myself in the office as instructed upon discharge. - Additional Information Resuscitation Status: Full Code Discharge Diet: As Tolerated Discharge Activity: Activity As Tolerated, Slowly Increase Activity Referrals: JIMMEI MUÑOZ MD [Primary Care Provider] - 02/19/19 10:00 am DYLAN LOUIS MD [ACTIVE STAFF] - Prescriptions: Ferrous Sulfate [Ferrous Sulfate Liquid 300 mg/5 ml Udcup] 300 mg PO BID #60 udc Ascorbic Acid [Vitamin C 500 mg Tablet] 500 mg PO BID #60 tablet Home Medications: Amlodipine Besylate 10 mg PO DAILY 10/29/14 Aspirin [Adult Low Dose Aspirin EC] 81 mg PO DAILY 02/05/19 Atorvastatin Calcium [Lipitor 20 mg Tablet] 20 mg PO DAILY 02/05/19 Calcium Carbonate/Vitamin D3 [Calcium 600-Vit D3 800 Caplet] 1 each PO DAILY 02/05/19 Cholecalciferol (Vitamin D3) [Vitamin D3 1000 Unit Tablet] 1,000 unit PO DAILY 02/05/19 Irbesartan/Hydrochlorothiazide [Irbesartan-Hctz 300-12.5 mg Tb] 1 tab PO DAILY 02/05/19 Lenalidomide [Revlimid] 1 cap PO ASDIR PRN 02/05/19 Levocetirizine Dihydrochloride [Xyzal] 5 mg PO DAILY 02/05/19 Sertraline HCl 50 mg PO DAILY 02/05/19 Sulfamethoxazole/Trimethoprim [Septra-Ds 800-160 mg Tablet] 1 tab PO MOTUWETHFR@1000 02/05/19 Ascorbic Acid [Vitamin C 500 mg Tablet] 500 mg PO BID #60 tablet 02/09/19 Ferrous Sulfate [Ferrous Sulfate Liquid 300 mg/5 ml Udcup] 300 mg PO BID #60 udc 02/09/19 History of Present Illiness History of Present Illness: AYAZ BOYD is a 88 year old female known to my practice who presented to the ED with complain about episode of postural dizziness, lightheadedness and eventually passed out. She reported waking up on the floor. She denied any preceding chest pain, palpitation or irregular heart beat. No associated headache. She admitted to getting up and moving very rapidly to attend to what she was cocking on her stove in the kitchen when her symptoms started. She was unable to report duration of her loss of consciousness. She denied any head injury or hitting her head against any object. She denied any subsequent nausea, vomiting, or vertigo. She decided to seek medical attention due to loss of consciousness. Her initial evaluation in the ED was significant for hyponatremia, worsening renal indices with elevated serum Creatinine Kinase and indeterminate range Troponin I level. Her morbidities are listed below. She was advised hospitalization for further evaluation and management. Hospital Course Hospital Course: Patient was admitted for postural syncope and found to have UTI. Her urine culture grew E. coli that was sensitive to Ceftriaxone. In view of her immunocompromise status due to Multiple Myeloma and recent chemotherapy she was treated with IV Rocephin for 5 days total. She was seen in consultation by Dr. Gutierrez, medical oncologist, partner of Dr. Louis of [facility]. She was instructed to hold off on her oral chemotherapy regimen until office follow up upon discharge. Her CBC indices were on upward trend at the time of her discharge. her oncology team will follow up and treat appropriately. She will follow up with Dr. Louis and myself in the office as instructed upon discharge. Physical Exam Vital Signs: Temp Pulse Resp BP Pulse Ox 97.2 F 56 L 17 128/50 H 100 02/09/19 15:46 02/09/19 15:46 02/09/19 15:46 02/09/19 15:46 02/09/19 15:46 Intake & Output 02/08/19 02/09/19 02/10/19 06:59 06:59 06:59 Intake Total 1837 4278 1492 Balance 1837 4278 1492 Weight 75.4 kg 77.4 kg General appearance: PRESENT: no acute distress, well-developed, well-nourished Head exam: PRESENT: atraumatic, normocephalic Eye exam: PRESENT: conjunctiva pink. ABSENT: pallor, scleral icterus Ear exam: PRESENT: normal external ear exam Mouth exam: PRESENT: moist Respiratory exam: PRESENT: clear to auscultation ijeoma Cardiovascular exam: PRESENT: RRR. ABSENT: diastolic murmur, rubs, systolic murmur GI/Abdominal exam: PRESENT: normal bowel sounds, soft. ABSENT: distended, guarding, mass, organomegaly, rebound, tenderness Extremities exam: ABSENT: pedal edema Neurological exam: PRESENT: alert, awake, oriented to person, oriented to place, oriented to time, oriented to situation, CN II-XII grossly intact. ABSENT: motor sensory deficit Psychiatric exam: PRESENT: appropriate affect, normal mood. ABSENT: homicidal ideation, suicidal ideation Skin exam: PRESENT: dry, warm Results Laboratory Results: WBC 7.9 10^3/uL (4.0-10.5) 02/09/19 06:15 RBC 2.84 10^6/uL (3.72-5.28) L 02/09/19 06:15 Hgb 9.1 g/dL (12.0-15.5) L 02/09/19 06:15 Hct 26.8 % (36.0-47.0) L 02/09/19 06:15 MCV 94 fl (80-97) 02/09/19 06:15 MCH 31.9 pg (27.0-33.4) 02/09/19 06:15 MCHC 33.8 g/dL (32.0-36.0) 02/09/19 06:15 RDW 15.8 % (11.5-14.0) H 02/09/19 06:15 Plt Count 94 10^3/uL (150-450) L 02/09/19 06:15 Lymph % (Auto) 6.5 % (13-45) L 02/08/19 05:30 [place] % (Auto) 11.6 % (3-13) 02/08/19 05:30 Eos % (Auto) 2.2 % (0-6) 02/08/19 05:30 Baso % (Auto) 0.1 % (0-2) 02/08/19 05:30 Absolute Neuts (auto) 6.3 10^3/uL (1.7-8.2) 02/08/19 05:30 Absolute Lymphs (auto) 0.5 10^3/uL (0.5-4.7) 02/08/19 05:30 Absolute Monos (auto) 0.9 10^3/uL (0.1-1.4) 02/08/19 05:30 Absolute Eos (auto) 0.2 10^3/uL (0.0-0.6) 02/08/19 05:30 Absolute Basos (auto) 0.0 10^3/uL (0.0-0.2) 02/08/19 05:30 Seg Neutrophils % 79.6 % (42-78) H 02/08/19 05:30 Toxic Vacuolation PRESENT 02/06/19 06:00 Platelet Comment DECREASED 02/06/19 06:00 Polychromasia SLIGHT 02/06/19 06:00 Poikilocytosis SLIGHT 02/06/19 06:00 Anisocytosis SLIGHT 02/06/19 06:00 Tear Drop Cells SLIGHT 02/06/19 06:00 Ovalocytes 1+ 02/06/19 06:00 Sodium 135.2 mmol/L (137-145) L 02/08/19 05:30 Potassium 4.2 mmol/L (3.6-5.0) 02/08/19 05:30 Chloride 106 mmol/L (98-107) 02/08/19 05:30 Carbon Dioxide 23 mmol/L (22-30) 02/08/19 05:30 Anion Gap 6 (5-19) 02/08/19 05:30 BUN 21 mg/dL (7-20) H 02/08/19 05:30 Creatinine 1.11 mg/dL (0.52-1.25) 02/08/19 05:30 Est GFR ( Amer) 56 (>60) L 02/08/19 05:30 Est GFR (MDRD) Non-Af 47 (>60) L 02/08/19 05:30 Glucose 79 mg/dL (75-110) 02/08/19 05:30 Calcium 7.7 mg/dL (8.4-10.2) L 02/08/19 05:30 Iron < 10.1 ug/dL (37-170) L 02/06/19 06:00 Total Bilirubin 0.6 mg/dL (0.2-1.3) 02/08/19 05:30 Direct Bilirubin 0.1 mg/dL (0.0-0.4) 02/08/19 05:30 Neonat Total Bilirubin Not Reportable 02/08/19 05:30 Neonat Direct Bilirubin Not Reportable 02/08/19 05:30 Neonat Indirect Bili Not Reportable 02/08/19 05:30 AST 58 U/L (14-36) H 02/08/19 05:30 ALT 143 U/L (<35) 02/08/19 05:30 Alkaline Phosphatase 43 U/L (38-126) 02/08/19 05:30 Creatine Kinase 140 U/L (30-135) H 02/05/19 17:20 CK-MB (CK-2) 1.74 ng/mL (<4.55) 02/05/19 17:20 Troponin I 0.074 ng/mL 02/05/19 17:20 Total Protein 6.1 g/dL (6.3-8.2) L 02/08/19 05:30 Albumin 2.4 g/dL (3.5-5.0) L 02/08/19 05:30 Triglycerides 34 mg/dL (<150) 02/05/19 05:32 Cholesterol 112.92 mg/dL (0-200) 02/05/19 05:32 LDL Cholesterol Direct 41 mg/dL (<100) 02/05/19 05:32 VLDL Cholesterol 7.0 mg/dL (10-31) L 02/05/19 05:32 HDL Cholesterol 56 mg/dL (>40) 02/05/19 05:32 Urine Color YELLOW 02/04/19 19:19 Urine Appearance SLIGHTLY-CLOUDY 02/04/19 19:19 Urine pH 5.0 (5.0-9.0) 02/04/19 19:19 Ur Specific [place] 1.018 02/04/19 19:19 Urine Protein NEGATIVE mg/dL (NEGATIVE) 02/04/19 19:19 Urine Glucose (UA) NEGATIVE mg/dL (NEGATIVE) 02/04/19 19:19 Urine Ketones NEGATIVE mg/dL (NEGATIVE) 02/04/19 19:19 Urine Blood NEGATIVE (NEGATIVE) 02/04/19 19:19 Urine Nitrite POSITIVE (NEGATIVE) H 02/04/19 19:19 Urine Bilirubin NEGATIVE (NEGATIVE) 02/04/19 19:19 Urine Urobilinogen NEGATIVE mg/dL (<2.0) 02/04/19 19:19 Ur Leukocyte Esterase LARGE (NEGATIVE) H 02/04/19 19:19 Urine WBC (Auto) 74 /HPF 02/04/19 19:19 Urine RBC (Auto) 3 /HPF 02/04/19 19:19 U Hyaline Cast (Auto) 12 /LPF 02/04/19 19:19 Urine Bacteria (Auto) 3+ /HPF 02/04/19 19:19 Urine WBC Clumps FEW /HPF 02/04/19 19:19 Squamous Epi Cells Auto 1 /HPF 02/04/19 19:19 Urine Mucus (Auto) RARE /LPF 02/04/19 19:19 Urine Ascorbic Acid 40 (NEGATIVE) H 02/04/19 19:19 Blood Type A NEGATIVE 02/06/19 10:30 Blood Type Confirm A NEGATIVE 02/06/19 10:30 Antibody Screen NEGATIVE 02/06/19 10:30 Crossmatch See Detail 02/06/19 10:30 02/04/19 02/04/19 02/05/19 19:19 23:05 05:32 CK-MB (CK-2) 2.44 2.03 Troponin I 0.046 0.105 0.092 02/05/19 02/05/19 11:15 17:20 CK-MB (CK-2) 1.79 1.74 Troponin I 0.068 0.074 Impressions: Chest X-Ray 02/04/19 00:00 IMPRESSION: 1. No acute pulmonary findings. 2. 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 Plan of Treatment: Continue chemotherapy treatment for her Multiple Myeloma with SMOC under directive of Dr. Louis and Matt. Goals: Reduced readmission risk with optimization of her medical oncology management and co-management of her other medical morbidities. Time Spent: Greater than 30 Minutes - Discussed post acute care care plan with patient at daughter at bedside during this visit. Stroke Is this a Stroke Patient?: No Acute Heart Failure - Is this a Heart Failure Patient?: No
[2019-02-09 17:47] VITALS: BP 139/68
== END 2019-02-09 20:00 | disposition home health service (06) | DRG 683 ==
LOC: ER 18:32 → EH 02-05 01:01 → 3W 02-05 02:21
PROVIDERS: ADMIT Internal Medicine Geriatric Medicine; ATTEND Internal Medicine Geriatric Medicine
PROC: 30233N1 Transfusion of Nonautologous Red Blood Cells into Peripheral Vein, Percutaneous Approach (ICD-10-PCS; principal; 2019-02-06)
DX: N17.9 Acute kidney failure, unspecified (principal); N39.0 Urinary tract infection, site not specified; C90.00 Multiple myeloma not having achieved remission; D61.818 Other pancytopenia; B96.20 Unspecified Escherichia coli [E. coli] as the cause of diseases classified elsewhere; I10 Essential (primary) hypertension; E78.5 Hyperlipidemia, unspecified; M81.0 Age-related osteoporosis without current pathological fracture; M89.49 Other hypertrophic osteoarthropathy, multiple sites; D63.0 Anemia in neoplastic disease; F32.9 Major depressive disorder, single episode, unspecified; R55 Syncope and collapse; E78.00 Pure hypercholesterolemia, unspecified; Z79.899 Other long term (current) drug therapy
CPT/HCPCS: 36415; 36430; 71045; 80053; 80061; 81001; 82550; 82553; 83540; 84484; 85025; 85027; 86850; 86900; 86901; 86920; 87086; 87088; 87186; 93005; 93010; 96361; 96365; 99285; J0696; J3490; J7030; J7050; P9016

== ENCOUNTER 2019-07-21 13:44 | Inpatient (IN) | payer MEDICARE ==
[2019-07-21] MEDS ORDERED: NORMAL SALINE 500 ML IV ONE (14:07)
[2019-07-21] MEDS ORDERED: NORMAL SALINE 1000 ML 1,000 ML IV ONE (14:08)
[2019-07-21 14:15] LABS: MEAN CORPUSCULAR HEMOGLOBIN 33.3 pg (27.0-33.4); MEAN CORPUSCULAR HGB CONC 35.9 g/dL (32.0-36.0); MEAN CORPUSCULAR VOLUME 93 fl (80-97); PLATELET COUNT 131 10^3/uL (150-450); RED CELL DISTRIBUTION WIDTH 18.8 % (11.5-14.0); WHITE BLOOD COUNT 9.9 10^3/uL (4.0-10.5)
--- NOTE | 2019-07-21 14:21 | ER Document Report ---
ED General Pain - General Chief Complaint: Urinary Problem Stated Complaint: URINARY ISSUES Time Seen by Provider: 07/21/19 13:54 Mode of Arrival: Medic Information source: Patient Notes: 88-year-old female presented to ED for a necrotic sacral decubitus, blood in her urine, pain in her sacral ulcer, she is also a oncology patient. She is a patient of Dr. Hussein of oncology. TRAVEL OUTSIDE OF THE [place] IN LAST 30 DAYS: No - HPI Onset: Other - Determine length of time Onset/Duration: Gradual Quality of pain: Sharp, Throbbing Severity: Severe Pain Level: 5 Context: Chronic problem Exacerbated by: Supine, Movement Relieved by: Denies Similar symptoms previously: Yes Recently seen / treated by doctor: Yes - Related Data Allergies/Adverse Reactions: No Known Allergies Allergy (Unverified 10/29/14 08:38) Past Medical History - General Information source: Patient, Outside Facility Records - Social History Smoking Status: Unknown if Ever Smoked Frequency of alcohol use: None Drug Abuse: None Lives with: Family Family History: Reviewed & Not Pertinent Patient has suicidal ideation: No Patient has homicidal ideation: No - Past Medical History Cardiac Medical History: Reports: Hx Hypercholesterolemia - meds for 40 years, Hx Hypertension - meds for 30 years Pulmonary Medical History: Reports: None EENT Medical History: Reports: None Neurological Medical History: Reports: None Endocrine Medical History: Reports: None Renal/ Medical History: Reports: None Malignancy Medical History: Reports: Hx Lymphoma - hx of follicular non- Hodgkin's lymphoma in remission GI Medical History: Reports: None Musculoskeletal Medical History: Reports Hx Arthritis, Reports Hx Musculoskeletal Deformity Skin Medical History: Reports None Psychiatric Medical History: Reports: Hx Depression Traumatic Medical History: Reports: None Infectious Medical History: Reports: None. Denies: Hx Hepatitis, Hx HIV Past Surgical History: Reports: Hx Appendectomy - 1970, Hx Hysterectomy - MARYURI - Immunizations Hx Diphtheria, Pertussis, Tetanus Vaccination: No Hx Pneumococcal Vaccination: 03/18/17 Review of Systems - Review of Systems Constitutional: No symptoms reported EENT: No symptoms reported Cardiovascular: No symptoms reported Respiratory: No symptoms reported Gastrointestinal: No symptoms reported Genitourinary: Hematuria Female Genitourinary: No symptoms reported Musculoskeletal: Back pain Skin: Other - Large foul-smelling necrotic sacral decubitus Hematologic/Lymphatic: No symptoms reported Neurological/Psychological: No symptoms reported -: Yes All other systems reviewed and negative Physical Exam - Vital signs Vitals: Temp 97.8 F 07/21/19 13:44 Interpretation: Normal - General General appearance: Appears well, Alert - HEENT Head: Normocephalic, Atraumatic Eyes: Normal Pupils: PERRL - Respiratory Respiratory status: No respiratory distress Chest status: Nontender Breath sounds: Normal Chest palpation: Normal - Cardiovascular Rhythm: Regular Heart sounds: Normal auscultation Murmur: No - Abdominal Inspection: Normal Distension: No distension Bowel sounds: Normal Tenderness: Nontender Organomegaly: No organomegaly - Back Back: Normal, Nontender - Extremities General upper extremity: Normal inspection, Nontender, Normal color, Normal ROM, Normal temperature General lower extremity: Normal inspection, Nontender, Normal color, Normal ROM, Normal temperature, Normal weight bearing. No: Ester's sign - Neurological Neuro grossly intact: Yes Cognition: Normal Orientation: AAOx4 [place] Coma Scale Eye Opening: Spontaneous Kristin Coma Scale Verbal: Oriented Kristin Coma Scale Motor: Obeys Commands [place] Coma Scale Total: 15 Speech: Normal Motor strength normal: LUE, RUE, LLE, RLE Sensory: Normal - Psychological Associated symptoms: Normal affect, Normal mood - Skin Skin Temperature: Warm Skin Moisture: Dry Skin Color: Normal Skin irregularity: Decubitus ulcer - Sacral area large foul-smelling decubitus with necrotic tissue Course - Re-evaluation Re-evalutation: 07/21/19 21:[address] Wagner when I first examined the patient. He came in and looked at the decubitus. He stated she definitely needed an IV contrasted CT of the abdomen pelvis. Due to her age blood work and IV contrasted CT were ordered. As well as a urine. Urine was negative. There was no blood in her urine. There was drainage from the decubitus noted. When I receive the results of the CT scan I called first Dr. Murillo who stated that he did need to read the decubitus but she would need to be admitted to her primary care. I attempted to call Dr. Arriaga multiple times until finally a 5:00 when his office closed I was able to reach him by telephone he stated that the patient did not need to be admitted but could be debrided in the emergency room and sent home. Dr. alberto did come down and examined the patient. Patient's power of contract administration coordinator is her daughter. Dr. Murillo called the patient's daughter and she refused to have the decubitus debrided in the emergency room at that time she stated that she was not going to take her mother home because her mother would live by herself and was not able to care for herself and just laid in the bed in her own feces. I spoke with Dr. Jimenez concerning the fact that Dr. Arriaga stated he was not admitting the patient and she did not meet criteria for admission. She did speak with Dr. Arriaga and it was agreed that he would admit the patient and Dr. Murillo would see the patient for the decubitus. Discharge planning referral was made. Patient will need fpc placement. Bart agreed to admit her for protein and calorie malnutrition and fpc placement due to no safe care at home. - Vital Signs Vital signs: Temp Pulse Resp BP Pulse Ox 97.6 F 16 99/47 L 100 07/21/19 16:04 07/21/19 18:01 07/21/19 18:00 07/21/19 18:01 - Laboratory Result Diagrams: 07/21/19 13:58 07/21/19 13:58 Laboratory results interpreted by me: 07/21/19 07/21/19 07/21/19 13:58 13:58 14:36 RBC 2.70 L Hgb 9.0 L Hct 25.0 L RDW 18.8 H Plt Count 131 L Seg Neuts % (Manual) 81 H Lymphocytes % (Manual) 8 L Monocytes % (Manual) 2 L Abs Neuts (Manual) 8.4 H Chloride 113 H Carbon Dioxide 18 L BUN 57 H Est GFR (MDRD) Non-Af 50 L Glucose 165 H Calcium 8.2 L AST 104 H ALT 81 H Total Protein 5.4 L Albumin 2.3 L Urine Ascorbic Acid 40 H - Diagnostic Test Radiology reviewed: Image reviewed, Reports reviewed Discharge - Discharge Clinical Impression: large sacral decubitus, pancreatic cystic lesion, Generalized weakness Protein calorie malnutrition Qualifiers: Protein-calorie malnutrition severity: severe Qualified Code(s): E43 - Unspecified severe protein-calorie malnutrition Disposition: ADMITTED INPATIENT Admitting Provider: Bart Unit Admitted: Medical Floor
[2019-07-21 14:33] LABS: ALBUMIN 2.3 g/dL (3.5-5.0); ALKALINE PHOSPHATASE 50 U/L (38-126); ANION GAP 9 (5-19); ASPARTATE AMINO TRANSFERASE 104 U/L (14-36); BILIRUBIN,DIRECT 0.1 mg/dL (0.0-0.4); BILIRUBIN,TOTAL 0.6 mg/dL (0.2-1.3); BLOOD UREA NITROGEN 57 mg/dL (7-20); CALCIUM 8.2 mg/dL (8.4-10.2); CARBON DIOXIDE 18 mmol/L (22-30); CHLORIDE 113 mmol/L (98-107); GLUCOSE 165 mg/dL (75-110); POTASSIUM 4.3 mmol/L (3.6-5.0); TOTAL PROTEIN 5.4 g/dL (6.3-8.2)
[2019-07-21 14:37] LABS: ABSOLUTE LYMPHOCYTES# (MANUAL) 0.8 10^3/uL (0.5-4.7); ABSOLUTE MONOCYTES # (MANUAL) 0.2 10^3/uL (0.1-1.4); BAND NEUTROPHILS % (MANUAL) 4 % (3-5); BASOPHILS % (MANUAL) 0 % (0-2); EOSINOPHILS % (MANUAL) 5 % (0-6); LYMPHOCYTES % (MANUAL) 8 % (13-45); MONOCYTES % (MANUAL) 2 % (3-13); SEGMENTED NEUTROPHILS % (MAN) 81 % (42-78); TOTAL CELLS COUNTED 100
[2019-07-21 14:39] LABS: ANISOCYTOSIS 2+; BURR CELLS 2+; OVALOCYTES 2+; PLATELET COMMENT ADEQUATE; POIKILOCYTOSIS 2+; POLYCHROMASIA SLIGHT
[2019-07-21 15:00] LABS: APPEARANCE,URINE SLIGHTLY-CLOUDY; BILIRUBIN,URINE NEGATIVE (NEGATIVE); COLOR,URINE YELLOW; GLUCOSE, URINE NEGATIVE (NEGATIVE); KETONES,URINE NEGATIVE (NEGATIVE); PROTEIN,URINE NEGATIVE (NEGATIVE); URINE SPECIFIC GRAVITY 1.016; UROBILINOGEN,URINE NEGATIVE mg/dL (<2.0)
[2019-07-21] MEDS ORDERED: VANCOMYCIN HCL INJ 1000 MG VIAL IV ONE (15:51)
--- NOTE | 2019-07-21 15:59 | RADIOLOGY REPORT (SQ) ---
EXAM DESCRIPTION: CT ABD/PELVIS WITH IV ONLY IMAGES COMPLETED DATE/TIME: 07/21/2019 3:32 pm REASON FOR STUDY: Necrotic wound to sacrum COMPARISON: CT of the abdomen and pelvis with contrast from 10/15/2018. TECHNIQUE: CT scan of the abdomen and pelvis performed using helical scanning technique with dynamic intravenous contrast injection. No oral contrast. Images reviewed with lung, soft tissue, and bone windows. Reconstructed coronal and sagittal MPR images reviewed. Delayed images for evaluation of the urinary system also acquired. All images stored on PACS. All CT scanners at this facility use dose modulation, iterative reconstruction, and/or weight based d osing when appropriate to reduce radiation dose to as low as reasonably achievable (ALARA). [facility]: Dose Right [facility]: CareDose [facility]: Dose Right [facility]: Teradose 4D [facility]: SoSocio CONTRAST TYPE AND DOSE: Contrast/concentration: Isovue 350.00 mg/ml; Total Contrast Delivered: 78.0 ml; Total Saline Delivered: 40.0 ml RENAL FUNCTION: Creatinine 1.04 milligrams/deciliter. RADIATION DOSE: CT Rad equipment meets quality standard of care and radiation dose reduction techniq ues were employed. CTDIvol: 9.6 - 14.4 mGy. DLP: 1284 mGy-cm. LIMITATIONS: The scan was obtained in the right lateral recumbent position FINDINGS: LOWER CHEST: Consolidative opacities with air bronchograms in the left lower lobe that cou ld represent atelectasis or an infection. The heart is enlarged and there is atherosclerotic calcifi cation of the coronary arteries and aortic valve leaflets. There is no pericardial effusion. LIVER: Evaluation of the liver is limited due to the artifact that results from the position of the a panfilo. The morphology of the liver is noncirrhotic. The portal veins are patent. SPLEEN: Stable partially calcified lesion in the superior aspect of the spleen. There is no splenome be. PANCREAS: There is a 13 x 10 mm cystic lesion in the pancreatic body (image 35 of series 3) that is n ew from 10/16/2019. GALLBLADDER: No abnormality that is apparent on CT. ADRENAL GLANDS: No mass or asymmetry. RIGHT KIDNEY AND URETER: Stable hypodense lesion in the posterior cortex of the kidney. There is no solid mass, hydronephrosis, nephrolithiasis, hydroureter or ureterolithiasis. LEFT KIDNEY AND URETER: Stable exophytic cortical based cystic lesions that measure up to 2.9 x 2.8 c m. There is no solid mass, hydronephrosis, nephrolithiasis, hydroureter or ureterolithiasis. AORTA AND VESSELS: No aneurysm or dissection of the abdominal aorta. RETROPERITONEUM: No retroperitoneal adenopathy, hemorrhage or mass. BOWEL AND PERITONEAL CAVITY: Constipation. There is no bowel obstruction, bowel wall thickening or p ericolonic/ perienteric inflammation. There is no mesenteric adenopathy, free intraperitoneal fluid or mesenteric/ omental inflammation. APPENDIX: Normal. PELVIS: Evaluation of the pelvis is limited due to the artifact from the hip prostheses. ABDOMINAL WALL: There is subcutaneous gas-containing collection posterior to the sacrum/coccyx that i s associated with dermal thickening and inflammatory stranding of the surrounding fat and measures up to 5 cm in transverse diameter and 7.8 cm in craniocaudal diameter ; the subcutaneous emphysema exte nds into the left gluteus chen. BONES: Age-indeterminate compression deformity of the superior endplate of the L3 vertebral body with less than 25% loss of the vertebral body height and no retropulsion that is new from 10/15/2018. The re is no erosion of the sacrum or coccyx. OTHER: No other finding. IMPRESSION: 1. Gas-containing subcutaneous collection posterior to the sacrum/ coccyx that is assoc iated with dermal thickening and inflammatory stranding of the surrounding fat and measures up to 5 c m in transverse diameter and 7.8 cm in craniocaudal diameter. There is no associated erosion of the sacrum or coccyx. 2. Age indeterminate compression deformity of the superior endplate of the L3 vertebral body with le ss than 25% loss of the vertebral body height and no retropulsion that is new from 10/15/2018. 3. New 13 x 10 mm cystic lesions in the pancreatic body (image 35 of series 3). 4. Consolidative opacities with air bronchograms in the left lower lobe that could represent atelecta sis or an infection. TECHNICAL DOCUMENTATION: JOB ID: [id number] Quality ID # [id number]: Final reports with documentation of one or more dose reduction techniques (e.g., Au tomated exposure control, adjustment of the mA and/or kV according to patient size, use of iterative reconstruction technique) 2010 [employer]- All Rights Reserved Reading location - IP/workstation name: [email or web address]
--- NOTE | 2019-07-21 17:34 | PDOC CONSULTATION ---
Consultation Consult Date: 07/21/19 Provider Consulted: SURGICAL SURGICALIST MD Consult reason:: sacral decubitus History of Present Illness Admission Date/PCP: JIMMIE MUÑOZ Patient complains of: sacral pain History of Present Illness: AYAZ BOYD is a 88 year old female seen in consultation at the request of the emergency department. This is an 88-year-old female who is malnourished, has multiple myeloma, and has now developed a sacral decubitus ulcer due to an inability to ambulate. She complains of sacral pain, and a foul smelling wound on her sacrum. The case has been discussed with her medical power of title attorney (daughter). The daughter reports that the patient does not ambulate, soils herself, and cannot take care of herself at home. The patient denies chest pain, shortness of breath, fevers, chills, nausea, vomiting, abdominal pain. She does report weakness, malaise, and sacral pain. Past Medical History Cardiac Medical History: Reports: Hyperlipidema - meds for 40 years, Hypertension - meds for 30 years Denies: Atrial Fibrillation, Congestive Heart Failure, Coronary Artery Disease, Myocardial Infarction, Peripheral Vascular Disease, Pulmonary Embolism, Heart Murmur Pulmonary Medical History: Reports: None Denies: Asthma, Bronchitis, Chronic Obstructive Pulmonary Disease (COPD), Pneumonia, Respiratory Failure, Sleep Apnea, Tuberculosis EENT Medical History: Reports: None Neurological Medical History: Reports: None Denies: Seizures Endocrine Medical History: Reports: None Denies: Hyperthyroidism, Hypothyroidism Renal/ Medical History: Reports: None Denies: End Stage Renal Disease Malignancy Medical History: Reports: 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 Denies: Breast Cancer, Cervical Cancer, Leukemia, Lung Cancer, Ovarian Cancer GI Medical History: Reports: None Denies: Crohn's Disease, Gastroesophageal Reflux Disease, Hepatitis, Hiatal Hernia Musculoskeltal Medical History: Reports: Arthritis Denies: Fibromyalgia Skin Medical History: Reports: None Psychiatric Medical History: Reports: Depression Denies: Bipolar Disorder, Dementia, Post Traumatic Stress Disorder Traumatic Medical History: Reports: None Hematology: Reports: Anemia Denies: Hemophilia, Sickle Cell Disease Infectious Medical History: Reports: None Denies: HIV Past Surgical History Past Surgical History: Reports: Appendectomy - 1970, Hysterectomy - MARYURI Denies: Amputation, Section, Cholecystectomy, Colostomy, Coronary Artery Bypass Graft, Gastric Bypass Surgery, Herniorrhaphy, Mastectomy, P acemaker, Tonsillectomy, Tubal Ligation Social History Lives with: Family Smoking Status: Unknown if Ever Smoked Electronic Cigarette use?: No Frequency of Alcohol Use: None Hx Recreational Drug Use: No Hx Prescription Drug Abuse: No Family History Family History: Reviewed & Not Pertinent Parental Family History Reviewed: Yes Children Family History Reviewed: Yes Sibling(s) Family History Reviewed.: Yes Medication/Allergy Home Medications: Amlodipine Besylate 10 mg PO DAILY 10/29/14 Aspirin [Adult Low Dose Aspirin EC] 81 mg PO DAILY 02/05/19 Atorvastatin Calcium [Lipitor 20 mg Tablet] 20 mg PO DAILY 02/05/19 Calcium Carbonate/Vitamin D3 [Calcium 600-Vit D3 800 Caplet] 1 each PO DAILY 02/05/19 Cholecalciferol (Vitamin D3) [Vitamin D3 1000 Unit Tablet] 1,000 unit PO DAILY 02/05/19 Irbesartan/Hydrochlorothiazide [Irbesartan-Hctz 300-12.5 mg Tb] 1 tab PO DAILY 02/05/19 Lenalidomide [Revlimid] 1 cap PO ASDIR PRN 02/05/19 Levocetirizine Dihydrochloride [Xyzal] 5 mg PO DAILY 02/05/19 Sertraline HCl 50 mg PO DAILY 02/05/19 Sulfamethoxazole/Trimethoprim [Septra-Ds 800-160 mg Tablet] 1 tab PO MOTUWETHFR@1000 02/05/19 Ascorbic Acid [Vitamin C 500 mg Tablet] 500 mg PO BID #60 tablet 02/09/19 Ferrous Sulfate [Ferrous Sulfate Liquid 300 mg/5 ml Udcup] 300 mg PO BID #60 udc 02/09/19 Allergies/Adverse Reactions: No Known Allergies Allergy (Unverified 10/29/14 08:38) Review of Systems Constitutional: PRESENT: anorexia, fatigue, weakness Eyes: ABSENT: visual disturbances Ears: ABSENT: hearing changes Nose, Mouth, and Throat: ABSENT: sore throat Cardiovascular: ABSENT: chest pain Respiratory: ABSENT: cough, dyspnea Gastrointestinal: ABSENT: abdominal pain Genitourinary: PRESENT: other - incontinence Integumentary: PRESENT: wounds - foul smelling sacral wound Psychiatric: ABSENT: anxiety, depression Endocrine: ABSENT: cold intolerance, heat intolerance Hematologic/Lymphatic: ABSENT: easy bleeding, easy bruising Physical Exam Vital Signs: Temp Pulse Resp BP Pulse Ox 97.6 F 16 103/46 L 97 07/21/19 16:04 07/21/19 16:04 07/21/19 16:04 07/21/19 16:04 Intake & Output 07/20/19 07/21/19 07/22/19 06:59 06:59 06:59 Intake Total 500 Output Total 150 Balance 350 Weight 67.2 kg General appearance: PRESENT: no acute distress Head exam: PRESENT: atraumatic Eye exam: ABSENT: scleral icterus Mouth exam: PRESENT: neck supple Neck exam: ABSENT: tracheal deviation, tracheostomy Respiratory exam: PRESENT: unlabored. ABSENT: tachypnea Cardiovascular exam: ABSENT: tachycardia Vascular exam: ABSENT: pallor GI/Abdominal exam: PRESENT: soft. ABSENT: distended, tenderness Rectal exam: PRESENT: normal inspection, other - see skin exam Musculoskeletal exam: ABSENT: deformity Neurological exam: PRESENT: alert, awake, oriented to person Psychiatric exam: ABSENT: agitated, anxious, depressed Focused psych exam: ABSENT: delusional Skin exam: PRESENT: other - Sacral decubitus ulcer with necrotic tissue present. There is no purulence. There is tenderness to palpation. The area measures approximately 3 to 4 cm in diameter. Results Laboratory Results: 07/21/19 13:58 07/21/19 13:58 07/21/19 07/21/19 07/21/19 13:58 13:58 14:36 WBC 9.9 RBC 2.70 L Hgb 9.0 L Hct 25.0 L MCV 93 MCH 33.3 MCHC 35.9 RDW 18.8 H Plt Count 131 L Seg Neutrophils % Not Reportable Sodium 139.5 Potassium 4.3 Chloride 113 H Carbon Dioxide 18 L Anion Gap 9 BUN 57 H Creatinine 1.04 Est GFR ( Amer) > 60 Glucose 165 H Calcium 8.2 L Total Bilirubin 0.6 AST 104 H Alkaline Phosphatase 50 Total Protein 5.4 L Albumin 2.3 L Urine Color YELLOW Urine Appearance SLIGHTLY-CLOUDY Urine pH 5.0 Ur Specific [place] 1.016 Urine Protein NEGATIVE Urine Glucose (UA) NEGATIVE Urine Ketones NEGATIVE Urine Blood NEGATIVE Urine RBC (Auto) 0 Impressions: Abdomen/Pelvis CT 07/21/19 14:05 IMPRESSION: 1. Gas-containing subcutaneous collection posterior to the sacrum/ coccyx that is associated with dermal thickening and inflammatory stranding of the surrounding fat and measures up to 5 cm in transverse diameter and 7.8 cm in craniocaudal diameter. There is no associated erosion of the sacrum or coccyx. 2. Age indeterminate compression deformity of the superior endplate of the L3 vertebral body with less than 25% loss of the vertebral body height and no retropulsion that is new from 10/15/2018. 3. New 13 x 10 mm cystic lesions in the pancreatic body (image 35 of series 3). 4. Consolidative opacities with air bronchograms in the left lower lobe that could represent atelectasis or an infection. Assessment & Plan - Diagnosis (1) Sacral decubitus ulcer Qualifiers: Pressure injury stage: pressure injury of deep tissue Qualified Code(s): L89.156 - Pressure-induced deep tissue damage of sacral region Is this a current diagnosis for this admission?: Yes - Plan Summary Plan Summary: This is an 88-year-old female with a sacral decubitus ulcer. There is necrotic tissue present. The patient will require debridement. I have discussed the case with the patient's medical power of title attorney. I have offered bedside debridement in the emergency department, however the medical power of title attorney has refused. She is requesting the patient be taken to the operating room, to "ease her suffering". The medical power of title attorney is also refusing to take the patient home. She reports that she cannot take care of her mother. She reports incontinence, weakness, and an inability to ambulate. The patient may benefit from placement in a nursing facility. I will defer the decision for retirement placement to her medical doctor. Surgery will be available for debridement, when the medical power of title attorney will consent.
[2019-07-21] MEDS ORDERED: TRAMADOL HCL 50 MG TABLET PO PRN (19:58)
[2019-07-21] MEDS ORDERED: VANCOMYCIN HCL 0 MG in DEXTROSE 5%-WATER 250 ML IV NR (20:00)
[2019-07-21] MEDS: PIPERACILLIN SODIUM/TAZOBACTAM 3.375 GM in NORMAL SALINE 100 ML IV SCH (22:18)
[2019-07-21] MEDS: VANCOMYCIN HCL 1,000 MG in DEXTROSE 5%-WATER 250 ML IV SCH (22:28)
[2019-07-22] MEDS ORDERED: DEXTROSE 40% GEL 15 GM TUBE PO PRN ×2 (00:39)
[2019-07-22] MEDS ORDERED: DEXTROSE 50%-WATER 25 GM/50 ML DISP.SYRIN IV PRN ×2 (00:39)
[2019-07-22] MEDS ORDERED: GLUCAGON,HUMAN RECOMB 1 MG INJ SUBCUT PRN (00:39)
[2019-07-22] MEDS: PIPERACILLIN SODIUM/TAZOBACTAM 3.375 GM in NORMAL SALINE 100 ML IV SCH ×4 (02:56→21:22)
[2019-07-22] MEDS: NORMAL SALINE 1000 ML 1,000 ML IV PRN (05:04)
[2019-07-22] MEDS: PANTOPRAZOLE SODIUM 40 MG TABLET.DR PO SCH (05:04)
[2019-07-22 05:11] LABS: HEMATOCRIT 22.1 % (36.0-47.0); MEAN CORPUSCULAR HEMOGLOBIN 32.6 pg (27.0-33.4); MEAN CORPUSCULAR HGB CONC 35.7 g/dL (32.0-36.0); MEAN CORPUSCULAR VOLUME 91 fl (80-97); PLATELET COUNT 139 10^3/uL (150-450); RED BLOOD COUNT 2.42 10^6/uL (3.72-5.28); RED CELL DISTRIBUTION WIDTH 18.5 % (11.5-14.0)
[2019-07-22 05:26] LABS: ALKALINE PHOSPHATASE 46 U/L (38-126); ANION GAP 8 (5-19); ASPARTATE AMINO TRANSFERASE 94 U/L (14-36); BILIRUBIN,TOTAL 0.5 mg/dL (0.2-1.3); BLOOD UREA NITROGEN 48 mg/dL (7-20); CALCIUM 7.2 mg/dL (8.4-10.2); CARBON DIOXIDE 19 mmol/L (22-30); CHLORIDE 113 mmol/L (98-107); GLUCOSE 97 mg/dL (75-110); POTASSIUM 3.8 mmol/L (3.6-5.0); TOTAL PROTEIN 4.9 g/dL (6.3-8.2)
[2019-07-22 05:47] LABS: ABSOLUTE LYMPHOCYTES# (MANUAL) 0.8 10^3/uL (0.5-4.7); ABSOLUTE MONOCYTES # (MANUAL) 0.1 10^3/uL (0.1-1.4); BAND NEUTROPHILS % (MANUAL) 2 % (3-5); BASOPHILS % (MANUAL) 0 % (0-2); EOSINOPHILS % (MANUAL) 1 % (0-6); LYMPHOCYTES % (MANUAL) 8 % (13-45); MONOCYTES % (MANUAL) 1 % (3-13); SEGMENTED NEUTROPHILS % (MAN) 88 % (42-78); TOTAL CELLS COUNTED 100
[2019-07-22 05:48] LABS: ANISOCYTOSIS 2+; TOXIC GRANULATION SLIGHT
[2019-07-22 05:49] LABS: BURR CELLS 2+; OVALOCYTES SLIGHT; PLATELET COMMENT DECREASED; POIKILOCYTOSIS SLIGHT; SCHISTOCYTES SLIGHT
[2019-07-22 05:50] LABS: HEMOGLOBIN 7.9 g/dL (12.0-15.5)
[2019-07-22] MEDS: LOSARTAN POTASSIUM 50 MG TABLET PO SCH ×2 (08:32→10:19)
[2019-07-22] MEDS ORDERED: (PENDING PHARMACY ID) (Irbesartan/Hydrochlorothiazide [Irbesartan-Hctz 300-12.5 Mg Tb] 1 T PO SCH (10:00)
[2019-07-22] MEDS: MEGESTROL ACETATE SUSP 400 MG/10 ML UDCUP PO SCH (10:25)
[2019-07-22] MEDS: ASPIRIN 81 MG TABLET, ENT COATED PO SCH (10:25)
[2019-07-22] MEDS: VALACYCLOVIR HCL 500 MG TABLET PO SCH (10:25)
[2019-07-22] MEDS: SERTRALINE HCL 50 MG TABLET PO SCH (10:25)
[2019-07-22] MEDS: ENOXAPARIN SODIUM INJ 40 MG/0.4 ML DISP.SYRIN SUBCUT SCH (10:25)
[2019-07-22] MEDS: HYDROCHLOROTHIAZIDE 12.5 MG TABLET PO SCH (10:25)
--- NOTE | 2019-07-22 11:34 | CDI QUERY ---
<KAE JOSE - Last Filed: 07/22/19 11:31> CDI Query CDI Review: DEAR PROVIDER PLEASE DOCUMENT IN PROGRESS NOTES AND D/C SUMMARY IF YOU AGREE WITH THE CLINICAL FINDINGS: MODERATE MALNUTRITION? SEVERE MALNUTRITION? OTHER? Progress notes state, "malnourished" protein 5.4-4.9 albumin 2.3 - 2.0 <JAIMEE COLVIN - Last Filed: 07/27/19 07:26> CDI Query CDI Review: Malnutrition, extent undetermined by me. Agree with Query: Yes - malnutrition, extent undetermined
[2019-07-22] MEDS ORDERED: FENTANYL CITRATE INJ/PF 100 MCG/2 ML AMPUL ONE (14:09)
[2019-07-22] MEDS ORDERED: MIDAZOLAM 2 MG/2 ML INJ ONE (14:09)
[2019-07-22] MEDS ORDERED: PROPOFOL INJ 200 MG/20 ML VIAL IV ONE (14:10)
[2019-07-22] MEDS ORDERED: BUPIVACAINE HCL 0.25 % INJ/PF (2.5 MG/1 ML) 30 ML VIAL ONE (15:12)
[2019-07-22] MEDS ORDERED: LIDOCAINE 1% INJ-PF (10 MG/ML) 30 ML SDV ONE (15:12)
[2019-07-22] MEDS ORDERED: PROMETHAZINE HCL INJ 25 MG/1 ML VIAL IV PRN ×2 (15:31)
[2019-07-22] MEDS ORDERED: FENTANYL CITRATE INJ/PF 100 MCG/2 ML AMPUL IV PRN ×3 (15:31)
[2019-07-22] MEDS ORDERED: DIPHENHYDRAMINE HCL 50 MG/ML VIAL IV PRN (15:31)
--- NOTE | 2019-07-22 16:45 | Operative Report ---
Nonrecallable Operative Report DATE OF SURGERY: 07/22/19 PREOPERATIVE DIAGNOSIS: Sacral decubiti POSTOPERATIVE DIAGNOSIS: sacral decubiti stage IV OPERATION: Wide sharp debridement of sacral decubiti SURGEON: MAC WEINSTEIN ANESTHESIA: LMAC TISSUE REMOVED OR ALTERED: Wide area of skin from sacrum COMPLICATIONS: None ESTIMATED BLOOD LOSS: 75 cc INTRAOPERATIVE FINDINGS: See note PROCEDURE: Patient was brought to the operating room and awake condition she was not alert not oriented she has dementia. She was placed on the operating table in a left lateral decubitus position. After appropriate timeout and site verification the procedure commenced. The patient had approximately 8 to 10 cm wide sacral decubiti directly over her lower sacrum above the buttock cleft. Elliptical incision was made around this 8 to 10 cm wide necrotic skin with the Bovie cautery. As we went through the sk in we noted that the infection was extended down deep through the subcutaneous fat and in fact that was black we continued our dissection and and noted that the area of necrotic fat and subcutaneous tissue extended underneath the skin for a distance of approximately 15 cm therefore the incision was widened with the Bovie cautery essentially the elliptical incision was 15 to 20 cm wide by 1520 cm high circumferentially over the top of the sacrum. We carried our dissection dissection down circumferentially to we reached normal bleeding yellow fatty tissue and then the necrotic the necrosis extended all the way down to the periosteum of the sacrum. We excised the necrotic skin and fat and some gluteal muscles off the lower back with the Bovie cautery. There was still some pus noting noted from the from the gluteus muscle with a tract leading down towards her left hip. However there is no skin necrosis and that was digitalized in all past was irrigated free. Once the procedure was completed we dissected the tissue down to his normal appearing bleeding tissue. However the periosteum of the most of the sacrum was identified and exposed. The wound was then copiously irrigated with normal saline. Hemostasis of the gluteal muscles were obtained with Bovie cautery. The wound was then packed with a Betadine soaked Kerlix sponge. A sterile dressing applied. The patient was then taken to the recovery room in stable condition. Estimated blood loss for the procedure is approximately 75 cc sponge needle counts were correct x2 no complications noted.
[2019-07-22] MEDS: VANCOMYCIN HCL 1,000 MG in DEXTROSE 5%-WATER 250 ML IV SCH (21:23)
--- NOTE | 2019-07-22 22:46 | PDOC H&P ---
History of Present Illness Admission Date/PCP: 07/21/19 18:08 [facility] Patient complains of: Sacral ulcer and pain History of Present Illness: AYAZ BOYD is a 88 year old female patient known to my practie who arrived at the ED via EMS due to family report of worsening debility and increase sacral region pain and poor condition of her sacral pressure ulcer. Patient sacral ulcer and malnourished stated have been a concern and managed on outpatient. She recently completed a telehealth evaluation initiated by patient and niece but subsequently presented to the office due to daughter insistence on [id number] evaluation the following day. Her evaluation did revealed associated leukocytosis with eschar covered sacral pressure ulcer. There was associated emaciation with poor oral intake. She was started on oral Augmentin and topical santyl cream for chemical debridement of the sacral pressure ulcer. She was maintained on Megestrol and protein powder supplementation therapy. Home health referral was made for skill nursing and physical therapy as well as personal care assistance during her visit in the office. Family reported inability to care for patient at home and due to her worsening condition presented to the ED via for further evaluation and management. Her initial ED evaluation was significant for hypotension, prerenal azotemia and reported abdominal and pelvic CT scan that revealed more extensive soft tissue infectious process without mention of osteomyelitis. Her leukocytosis have resolved but she continue to demonstrate left shift in her differential count. She was advised hospitalization for further evaluation and treatment due to failure of outpatient management, adult failure to thrive, and need for surgical sharp wound debridement. Her morbidities are as listed below. Past Medical History Cardiac Medical History: Reports: Hyperlipidema - meds for 40 years, Hypertension - meds for 30 years Denies: Atrial Fibrillation, Congestive Heart Failure, Coronary Artery Disease, Myocardial Infarction, Peripheral Vascular Disease, Pulmonary Embolism, Heart Murmur Pulmonary Medical History: Reports: None Denies: Asthma, Bronchitis, Chronic Obstructive Pulmonary Disease (COPD), Pneumonia, Respiratory Failure, Sleep Apnea, Tuberculosis EENT Medical History: Reports: None Neurological Medical History: Reports: None Denies: Seizures Endocrine Medical History: Reports: None Denies: Hyperthyroidism, Hypothyroidism Renal/ Medical History: Reports: None Denies: End Stage Renal Disease Malignancy Medical History: Reports: 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 Denies: Breast Cancer, Cervical Cancer, Leukemia, Lung Cancer, Ovarian Cancer GI Medical History: Reports: None Denies: Crohn's Disease, Gastroesophageal Reflux Disease, Hepatitis, Hiatal Hernia Musculoskeltal Medical History: Reports: Arthritis Denies: Fibromyalgia Skin Medical History: Reports: None Psychiatric Medical History: Reports: Depression Denies: Bipolar Disorder, Dementia, Post Traumatic Stress Disorder Traumatic Medical History: Reports: None Hematology: Reports: Anemia Denies: Hemophilia, Sickle Cell Disease Infectious Medical History: Reports: None Denies: HIV Past Surgical History Past Surgical History: Reports: Appendectomy - 1970, Hysterectomy - [facility] Denies: Amputation, Section, Cholecystectomy, Colostomy, Coronary Artery Bypass Graft, Gastric Bypass Surgery, Herniorrhaphy, Mastectomy, Pacemaker, Tonsillectomy, Tubal Ligation Social History Lives with: Family Smoking Status: Unknown if Ever Smoked Electronic Cigarette use?: No Frequency of Alcohol Use: None Hx Recreational Drug Use: No Hx Prescription Drug Abuse: No - Advance Directive Resuscitation Status: Full Code Family History Family History: Reviewed & Not Pertinent Parental Family History Reviewed: Yes Children Family History Reviewed: Yes Sibling(s) Family History Reviewed.: Yes Medication/Allergy Home Medications: Amoxicillin/Potassium Clav [Augmentin 875-125 Tablet] 1 tab PO Q12 07/21/19 Aspirin [Ecotrin 81 mg EC Tablet] 81 mg PO DAILY 07/21/19 Atorvastatin Calcium [Lipitor 20 mg Tablet] 20 mg PO QHS 07/21/19 Irbesartan/Hydrochlorothiazide [Irbesartan-Hctz 300-12.5 mg Tb] 1 tab PO DAILY 07/21/19 Levocetirizine Dihydrochloride [Xyzal] 5 mg PO DAILY 07/21/19 Megestrol Acetate [Megace Tangela 400 mg/10 ml Udcup] 1,600 mg PO DAILY 07/21/19 Potassium Chloride [Klor-Con M20] 20 meq PO DAILY 07/21/19 Sertraline HCl [Zoloft 50 mg Tablet] 50 mg PO DAILY 07/21/19 Tramadol HCl [Ultram 50 mg Tablet] 50 mg PO Q6HP PRN 07/21/19 Valacyclovir HCl [Valtrex 500 mg Tablet] 500 mg PO DAILY 07/21/19 Allergies/Adverse Reactions: No Known Allergies Allergy (Unverified 10/29/14 08:38) Review of Systems Constitutional: PRESENT: anorexia, chills, fatigue, weakness, weight loss Eyes: PRESENT: visual disturbances Ears: ABSENT: hearing changes Nose, Mouth, and Throat: ABSENT: headache(s), mouth pain, sore throat, vertigo Cardiovascular: ABSENT: chest pain, dyspnea on exertion, edema, orthropnea, palpitations Respiratory: ABSENT: cough, hemoptysis Gastrointestinal: ABSENT: abdominal pain, constipation, diarrhea, hematemesis, hematochezia, nausea, vomiting Genitourinary: ABSENT: difficulty urinating, dysuria, hematuria Musculoskeletal: ABSENT: joint swelling Integumentary: PRESENT: wounds - unstageable sacral pressure ulcer. ABSENT: diaphoresis, pruritus, rash Neurological: ABSENT: abnormal gait, abnormal speech, confusion, dizziness, focal weakness, syncope Psychiatric: ABSENT: anxiety, depression, homidical ideation, suicidal ideation Endocrine: ABSENT: cold intolerance, heat intolerance, polydipsia, polyuria Hematologic/Lymphatic: ABSENT: easy bleeding, easy bruising, lymphadenopathy Allergic/Immunologic: ABSENT: seasonal rhinorrhea Physical Exam Vital Signs: Temp Pulse Resp BP Pulse Ox 97.6 F 16 99/47 L 100 07/21/19 16:04 07/21/19 18:01 07/21/19 18:00 07/21/19 18:01 Intake & Output 07/20/19 07/21/19 07/22/19 06:59 06:59 06:59 Intake Total 500 Output Total 150 Balance 350 Weight 67.2 kg General appearance: PRESENT: no acute distress, other - although her BMI is in normal range for her age, she has weight loss comparable significant weight loss. Head exam: PRESENT: atraumatic, normocephalic Eye exam: PRESENT: conjunctiva pink, EOMI, PERRLA. ABSENT: scleral icterus Ear exam: PRESENT: normal external ear exam Mouth exam: PRESENT: dry mucosa, tongue midline Neck exam: PRESENT: full ROM. ABSENT: carotid bruit, JVD, lymphadenopathy, thyromegaly Respiratory exam: PRESENT: clear to auscultation ijeoma, decreased breath sounds - at lung bases Cardiovascular exam: PRESENT: RRR. ABSENT: diastolic murmur, rubs, systolic murmur Pulses: PRESENT: normal dorsalis pedis pul, +2 pedal pulses bilateral Vascular exam: ABSENT: pallor GI/Abdominal exam: PRESENT: normal bowel sounds, soft. ABSENT: distended, guarding, mass, organolmegaly, rebound, tenderness Rectal exam: PRESENT: deferred Extremities exam: ABSENT: pedal edema Neurological exam: PRESENT: alert, awake, oriented to person, oriented to place, oriented to time, oriented to situation, CN II-XII grossly intact. ABSENT: motor sensory deficit Psychiatric exam: PRESENT: appropriate affect, normal mood. ABSENT: homicidal ideation, suicidal ideation Skin exam: PRESENT: dry, warm. ABSENT: cyanosis, intact - unstageable sacral decubitus ulcer with eschar., rash Results Laboratory Results: 07/21/19 13:58 07/21/19 13:58 07/21/19 07/21/19 07/21/19 13:58 13:58 14:36 WBC 9.9 RBC 2.70 L Hgb 9.0 L Hct 25.0 L MCV 93 MCH 33.3 MCHC 35.9 RDW 18.8 H Plt Count 131 L Seg Neutrophils % Not Reportable Sodium 139.5 Potassium 4.3 Chloride 113 H Carbon Dioxide 18 L Anion Gap 9 BUN 57 H Creatinine 1.04 Est GFR ( Amer) > 60 Glucose 165 H Calcium 8.2 L Total Bilirubin 0.6 AST 104 H Alkaline Phosphatase 50 Total Protein 5.4 L Albumin 2.3 L Urine Color YELLOW Urine Appearance SLIGHTLY-CLOUDY Urine pH 5.0 Ur Specific [place] 1.016 Urine Protein NEGATIVE Urine Glucose (UA) NEGATIVE Urine Ketones NEGATIVE Urine Blood NEGATIVE Urine RBC (Auto) 0 Impressions: Abdomen/Pelvis CT 07/21/19 14:05 IMPRESSION: 1. Gas-containing subcutaneous collection posterior to the sacrum/ coccyx that is associated with dermal thickening and inflammatory stranding of the surrounding fat and measures up to 5 cm in transverse diameter and 7.8 cm in craniocaudal diameter. There is no associated erosion of the sacrum or coccyx. 2. Age indeterminate compression deformity of the superior endplate of the L3 vertebral body with less than 25% loss of the vertebral body height and no retropulsion that is new from 10/15/2018. 3. New 13 x 10 mm cystic lesions in the pancreatic body (image 35 of series 3). 4. Consolidative opacities with air bronchograms in the left lower lobe that could represent atelectasis or an infection. Assessment & Plan - Diagnosis (1) Sacral decubitus ulcer Qualifiers: Pressure injury stage: unstageable Qualified Code(s): L89.150 - Pressure ulcer of sacral region, unstageable Is this a current diagnosis for this admission?: Yes Plan: See admitting attending physician orders for details about care plan. (2) Protein calorie malnutrition Qualifiers: Protein-calorie malnutrition severity: moderate Qualified Code(s): E44.0 - Moderate protein-calorie malnutrition Is this a current diagnosis for this admission?: Yes Plan: See admitting attending physician orders for details about care plan. Her BMI was 26.4 with weight at 76.4 kg on 02/07/2019. (3) Failure of outpatient treatment Is this a current diagnosis for this admission?: Yes Plan: See admitting attending physician orders for details about care plan. (4) RAIZA (acute kidney injury) Is this a current diagnosis for this admission?: Yes Plan: See admitting attending physician orders for details about care plan. (5) Senile debility Is this a current diagnosis for this admission?: Yes Plan: See admitting attending physician orders for details about care plan. (6) Generalized weakness Is this a current diagnosis for this admission?: Yes Plan: See admitting attending physician orders for details about care plan. (7) Difficulty walking Is this a current diagnosis for this admission?: Yes Plan: See admitting attending physician orders for details about care plan. (8) HTN (hypertension) Qualifiers: Hypertension type: essential hypertension Qualified Code(s): I10 - Essential (primary) hypertension Is this a current diagnosis for this admission?: Yes Plan: See admitting attending physician orders for details about care plan. (9) HLD (hyperlipidemia) Qualifiers: Hyperlipidemia type: unspecified Qualified Code(s): E78.5 - Hyperlipidemia, unspecified Is this a current diagnosis for this admission?: Yes Plan: See admitting attending physician orders for details about care plan. (10) Multiple myeloma Qualifiers: Multiple myeloma remission status: not in remission Qualified Code(s): C90.00 - Multiple myeloma not having achieved remission Is this a current diagnosis for this admission?: Yes Plan: See admitting attending physician orders for details about care plan. (11) Osteoarthritis involving multiple 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 Is this a current diagnosis for this admission?: Yes Plan: See admitting attending physician orders for details about care plan. - Time Time Spent: 50 to 70 Minutes Medications reviewed and adjusted accordingly: Yes Anticipated discharge: SNF - for short term rehabilitation upon discharge. Within: Other - Inpatient Certification Based on my medical assessment, after consideration of the patient's c omorbidities, presenting symptoms, or acuity I expect that the services needed warrant INPATIENT care.: Yes I certify that my determination is in accordance with my understanding of Medicare's requirements for reasonable and necessary INPATIENT services [42 CFR 412.3e].: Yes Medical Necessity: Failure to Improve With Outpatient Therapy, Significant Comorbidiites Make Outpatient Treatment Too Risky, Need Close Monitoring Due to Risk of Patient Decompensation, Need For IV Fluids, Need for Pain Control, Need for IV Antibiotics, Need for Surgery, Risk of Complication if Not Cared For in Hospital, Risk of Diagnosis Which Will Require Inpatient Eval/Care/Monitoring Post Hospital Care: D/C or Transfer Summary - Plan Summary Plan Summary: See admitting attending physician orders for details about care plan.
--- NOTE | 2019-07-22 22:55 | PDOC PROGRESS REPORT ---
Subjective Progress Note for:: 07/22/19 Subjective:: Patient reported pain at site of her sacral decubitus ulcer. Awaiting surgical debridement. Daughter, DORIS, gave consent for procedure this morning. She denied any chest pain or difficulty with breathing. No abdominal pain, nausea or vomiting. Appetite remain poor. Reason For Visit: PROTEIN-CALORIE MALNUTRITION,INFECTED PRESSURE Physical Exam Vital Signs: Temp Pulse Resp BP Pulse Ox 98.1 F 70 17 108/46 L 100 07/22/19 21:15 07/22/19 21:15 07/22/19 21:15 07/22/19 21:15 07/22/19 21:15 Intake & Output 07/21/19 07/22/19 07/23/19 06:59 06:59 06:59 Intake Total 950 275 Output Total 450 600 Balance 500 -325 Weight 66.8 kg 66.8 kg General appearance: PRESENT: mild distress - due to pain Head exam: PRESENT: atraumatic, normocephalic Eye exam: PRESENT: conjunctiva pink, EOMI, PERRLA. ABSENT: scleral icterus Ear exam: PRESENT: normal external ear exam Mouth exam: PRESENT: moist, tongue midline Neck exam: PRESENT: full ROM. ABSENT: carotid bruit, JVD, lymphadenopathy, thyromegaly Respiratory exam: PRESENT: clear to auscultation ijeoma, decreased breath sounds - at lung bases Cardiovascular exam: PRESENT: RRR, +S1, +S2. ABSENT: diastolic murmur, rubs, systolic murmur Vascular exam: ABSENT: pallor GI/Abdominal exam: PRESENT: normal bowel sounds, soft. ABSENT: distended, g uarding, mass, organolmegaly, rebound, tenderness Rectal exam: PRESENT: deferred Extremities exam: ABSENT: pedal edema Neurological exam: PRESENT: alert, awake, oriented to person, oriented to place, oriented to time, oriented to situation, CN II-XII grossly intact. ABSENT: motor sensory deficit Psychiatric exam: PRESENT: appropriate affect, normal mood. ABSENT: homicidal ideation, suicidal ideation Skin exam: PRESENT: dry, warm. ABSENT: cyanosis, intact - unstageable sacral decubitus ulcer, rash Results Laboratory Results: 07/22/19 04:35 07/22/19 04:35 07/22/19 07/22/19 04:35 04:35 WBC 10.0 RBC 2.42 L Hgb 7.9 L Hct 22.1 L MCV 91 MCH 32.6 MCHC 35.7 RDW 18.5 H Plt Count 139 L Seg Neutrophils % Not Reportable Sodium 140.2 Potassium 3.8 Chloride 113 H Carbon Dioxide 19 L Anion Gap 8 BUN 48 H Creatinine 0.86 Est GFR ( Amer) > 60 Glucose 97 Calcium 7.2 L Total Bilirubin 0.5 AST 94 H Alkaline Phosphatase 46 Total Protein 4.9 L Albumin 2.0 L Impressions: Abdomen/Pelvis CT 07/21/19 14:05 IMPRESSION: 1. Gas-containing subcutaneous collection posterior to the sacrum/ coccyx that is associated with dermal thickening and inflammatory stranding of the surrounding fat and measures up to 5 cm in transverse diameter and 7.8 cm in craniocaudal diameter. There is no associated erosion of the sacrum or coccyx. 2. Age indeterminate compression deformity of the superior endplate of the L3 vertebral body with less than 25% loss of the vertebral body height and no retropulsion that is new from 10/15/2018. 3. New 13 x 10 mm cystic lesions in the pancreatic body (image 35 of series 3). 4. Consolidative opacities with air bronchograms in the left lower lobe that could represent atelectasis or an infection. Assessment & Plan - Diagnosis (1) Sacral decubitus ulcer Qualifiers: Pressure injury stage: unstageable Qualified Code(s): L89.150 - Pressure ulcer of sacral region, unstageable Is this a current diagnosis for this admission?: Yes (2) Protein calorie malnutrition Qualifiers: Protein-calorie malnutrition severity: moderate Qualified Code(s): E44.0 - Moderate protein-calorie malnutrition Is this a current diagnosis for this admission?: Yes (3) Failure of outpatient treatment Is this a current diagnosis for this admission?: Yes (4) RAIZA (acute kidney injury) Is this a current diagnosis for this admission?: Yes (5) Senile debility Is this a current diagnosis for this admission?: Yes (6) Generalized weakness Is this a current diagnosis for this admission?: Yes (7) Difficulty walking Is this a current diagnosis for this admission?: Yes (8) HTN (hypertension) Qualifiers: Hypertension type: essential hypertension Qualified Code(s): I10 - Essential (primary) hypertension Is this a current diagnosis for this admission?: Yes (9) HLD (hyperlipidemia) Qualifiers: Hyperlipidemia type: unspecified Qualified Code(s): E78.5 - Hyperlipidemia, unspecified Is this a current diagnosis for this admission?: Yes (10) Multiple myeloma Qualifiers: Multiple myeloma remission status: not in remission Qualified Code(s): C90.00 - Multiple myeloma not having achieved remission Is this a current diagnosis for this admission?: Yes (11) Osteoarthritis involving multiple 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 Is this a current diagnosis for this admission?: Yes - Time Time Spent with patient: 25-34 minutes Level of Care: MEDICAL Medications reviewed and adjusted accordingly: Yes Anticipated discharge: SNF Within: Other - Inpatient Certification Based on my medical assessment, after consideration of the patient's comorbidities, presenting symptoms, or acuity I expect that the services needed warrant INPATIENT care.: Yes I certify that my determination is in accordance with my understanding of Medicare's requirements for reasonable and necessary INPATIENT services [42 CFR 412.3e].: Yes Medical Necessity: Failure to Improve With Outpatient Therapy, Significant Comorbidiites Make Outpatient Treatment Too Risky, Need Close Monitoring Due to Risk of Patient Decompensation, Need For IV Fluids, Need for Pain Control, Need for IV Antibiotics, Need for Surgery, Risk of Complication if Not Cared For in Hospital, Risk of Diagnosis Which Will Require Inpatient Eval/Care/Monitoring Post Hospital Care: D/C or Transfer Summary - Plan Summary Plan Summary: Continue IV Vancomycin and Zosyn coverage. Follow up on wound debridement and culture findings. Repeat CBC with diff, CMP in am. Overall prognosis remain guarded.
[2019-07-23] MEDS: HYDROCODONE/ACETAMINOPHEN 5-325 MG TABLET PO PRN ×2 (00:26→05:48)
[2019-07-23] MEDS: PIPERACILLIN SODIUM/TAZOBACTAM 3.375 GM in NORMAL SALINE 100 ML IV SCH ×4 (02:44→20:47)
[2019-07-23] MEDS: PANTOPRAZOLE SODIUM 40 MG TABLET.DR PO SCH (05:48)
[2019-07-23] MEDS: ENOXAPARIN SODIUM INJ 40 MG/0.4 ML DISP.SYRIN SUBCUT SCH (10:15)
[2019-07-23] MEDS: SERTRALINE HCL 50 MG TABLET PO SCH (10:16)
[2019-07-23] MEDS: LOSARTAN POTASSIUM 50 MG TABLET PO SCH (10:16)
[2019-07-23] MEDS: HYDROCHLOROTHIAZIDE 12.5 MG TABLET PO SCH (10:16)
[2019-07-23] MEDS: MEGESTROL ACETATE SUSP 400 MG/10 ML UDCUP PO SCH (10:17)
[2019-07-23] MEDS: VALACYCLOVIR HCL 500 MG TABLET PO SCH (10:17)
[2019-07-23] MEDS: ASPIRIN 81 MG TABLET, ENT COATED PO SCH (10:17)
--- NOTE | 2019-07-23 10:49 | PDOC PROGRESS REPORT ---
Subjective Progress Note for:: 07/23/19 Subjective:: No acute distress. Reason For Visit: PROTEIN-CALORIE MALNUTRITION,INFECTED PRESSURE Physical Exam Vital Signs: Temp Pulse Resp BP Pulse Ox 98.3 F 83 20 115/49 L 100 07/23/19 08:30 07/23/19 08:30 07/23/19 08:30 07/23/19 08:30 07/23/19 08:30 Intake & Output 07/22/19 07/23/19 07/24/19 06:59 06:59 06:59 Intake Total 950 725 Output Total 450 600 Balance 500 125 Weight 66.8 kg 66.7 kg Skin exam: PRESENT: other - Large sacral wound is clean with no necrotic debris. Some serous drainage no bleeding. Results Laboratory Results: 07/22/19 04:35 07/22/19 04:35 Impressions: Abdomen/Pelvis CT 07/21/19 14:05 IMPRESSION: 1. Gas-containing subcutaneous collection posterior to the sacrum/ coccyx that is associated with dermal thickening and inflammatory stranding of the surrounding fat and measures up to 5 cm in transverse diameter and 7.8 cm in craniocaudal diameter. There is no associated erosion of the sacrum or coccyx. 2. Age indeterminate compression deformity of the superior endplate of the L3 vertebral body with less than 25% loss of the vertebral body height and no retropulsion that is new from 10/15/2018. 3. New 13 x 10 mm cystic lesions in the pancreatic body (image 35 of series 3). 4. Consolidative opacities with air bronchograms in the left lower lobe that could represent atelectasis or an infection. Assessment & Plan - Diagnosis (1) Sacral decubitus ulcer Qualifiers: Pressure injury stage: stage 4 Qualified Code(s): L89.154 - Pressure ulcer of sacral region, stage 4 Is this a current diagnosis for this admission?: Yes Plan: Status post debridement. Poor prognosis for healing. No further debridement required at this time. Will place a wound VAC on her tomorrow. Will likely need plastic surgery intervention for healing but such intervention is inappropriate unless her overall medical status markedly improves, specifically her nutrition and mobility. End-of-life decisions seem appropriate in this patient. Will defer to her primary care doctor.
--- NOTE | 2019-07-23 19:19 | PDOC PROGRESS REPORT ---
Subjective Progress Note for:: 07/23/19 Subjective:: Patient denied any chest pain or difficulty with breathing. No abdominal pain, nausea or vomiting. She is s/p sacral decubitus debridement with large sacral wound presently. Surgical team is looking at possible wound vac application tomorrow. Reason For Visit: PROTEIN-CALORIE MALNUTRITION,INFECTED PRESSURE Physical Exam Vital Signs: Temp Pulse Resp BP Pulse Ox 98.3 F 72 16 109/47 L 98 07/23/19 16:27 07/23/19 16:27 07/23/19 16:27 07/23/19 16:27 07/23/19 16:27 Intake & Output 07/22/19 07/23/19 07/24/19 06:59 06:59 06:59 Intake Total 950 725 826 Output Total 450 600 Balance 500 125 826 Weight 66.8 kg 66.7 kg Physical Exam: General appearance: PRESENT: mild distress - due to pain Head exam: PRESENT: atraumatic, normocephalic Eye exam: PRESENT: conjunctiva pink. ABSENT: pallor, sclera icterus Ear exam: PRESENT: normal external ear exam Mouth exam: PRESENT: moist, tongue midline Neck exam: PRESENT: full ROM. Respiratory exam: PRESENT: clear to auscultation ijeoma, decreased breath sounds - at lung bases Cardiovascular exam: PRESENT: RRR, +S1, +S2. ABSENT: diastolic murmur, rubs, systolic murmur GI/Abdominal exam: PRESENT: normal bowel sounds, soft. ABSENT: distended, guarding, mass, organomegaly, rebound, tenderness Extremities exam: ABSENT: pedal edema Neurological exam: PRESENT: alert, awake, oriented to person, oriented to place, oriented to time, oriented to situation, CN II-XII grossly intact. ABSENT: motor sensory deficit Psychiatric exam: PRESENT: appropriate affect, normal mood. ABSENT: homicidal ideation, suicidal ideation Skin exam: PRESENT: dry, warm, large clean, pink, sacral decutibus crater s/p debridement wound with dressing. ABSENT: cyanosis Results Laboratory Results: 07/22/19 04:35 07/22/19 04:35 Impressions: Abdomen/Pelvis CT 07/21/19 14:05 IMPRESSION: 1. Gas-containing subcutaneous collection posterior to the sacrum/ coccyx that is associated with dermal thickening and inflammatory stranding of the surrounding fat and measures up to 5 cm in transverse diameter and 7.8 cm in craniocaudal diameter. There is no associated erosion of the sacrum or coccyx. 2. Age indeterminate compression deformity of the superior endplate of the L3 vertebral body with less than 25% loss of the vertebral body height and no retropulsion that is new from 10/15/2018. 3. New 13 x 10 mm cystic lesions in the pancreatic body (image 35 of series 3). 4. Consolidative opacities with air bronchograms in the left lower lobe that could represent atelectasis or an infection. Assessment & Plan - Diagnosis (1) Sacral decubitus ulcer Qualifiers: Pressure injury stage: stage 4 Qualified Code(s): L89.154 - Pressure ulcer of sacral region, stage 4 Is this a current diagnosis for this admission?: Yes (2) Protein calorie malnutrition Qualifiers: Protein-calorie malnutrition severity: moderate Qualified Code(s): E44.0 - Moderate protein-calorie malnutrition Is this a current diagnosis for this admission?: Yes (3) Failure of outpatient treatment Is this a current diagnosis for this admission?: Yes (4) RAIZA (acute kidney injury) Is this a current diagnosis for this admission?: Yes (5) Senile debility Is this a current diagnosis for this admission?: Yes (6) Generalized weakness Is this a current diagnosis for this admission?: Yes (7) Difficulty walking Is this a current diagnosis for this admission?: Yes (8) HTN (hypertension) Qualifiers: Hypertension type: essential hypertension Qualified Code(s): I10 - Essential (primary) hypertension Is this a current diagnosis for this admission?: Yes (9) HLD (hyperlipidemia) Qualifiers: Hyperlipidemia type: unspecified Qualified Code(s): E78.5 - Hyperlipidemia, unspecified Is this a current diagnosis for this admission?: Yes (10) Multiple myeloma Qualifiers: Multiple myeloma remission status: not in remission Qualified Code(s): C90.00 - Multiple myeloma not having achieved remission Is this a current diagnosis for this admission?: Yes (11) Osteoarthritis involving multiple 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 Is this a current diagnosis for this admission?: Yes - Time Time Spent with patient: 25-34 minutes Level of Care: MEDICAL Medications reviewed and adjusted accordingly: Yes Anticipated discharge: SNF Within: Other - Inpatient Certification Based on my medical assessment, after consideration of the patient's comorbidities, presenting symptoms, or acuity I expect that the services needed warrant INPATIENT care.: Yes I certify that my determination is in accordance with my understanding of Medicare's requirements for reasonable and necessary INPATIENT services [42 CFR 412.3e].: Yes Medical Necessity: Significant Comorbidiites Make Outpatient Treatment Too Risky, Need Close Monitoring Due to Risk of Patient Decompensation, Need For IV Fluids, Need for IV Antibiotics, Risk of Complication if Not Cared For in Hospit al, Risk of Diagnosis Which Will Require Inpatient Eval/Care/Monitoring Post Hospital Care: D/C or Transfer Summary - Plan Summary Plan Summary: Continue current medication management. Follow up on blood culture findings. Obtain CBC with diff, CMP in AM. I had extensive discussion with patient and daughter at bedside regarding post acute care plan to include SNF for wound management and rehabilitation. Family is requesting for nursing facility placement around [place], [place] to encourage family participation in patient's care.
[2019-07-23] MEDS: VANCOMYCIN HCL 1,000 MG in DEXTROSE 5%-WATER 250 ML IV SCH (21:44)
[2019-07-23] MEDS: NORMAL SALINE 1000 ML 1,000 ML IV PRN (21:45)
[2019-07-24] MEDS: PIPERACILLIN SODIUM/TAZOBACTAM 3.375 GM in NORMAL SALINE 100 ML IV SCH ×4 (03:25→21:00)
[2019-07-24] MEDS: PANTOPRAZOLE SODIUM 40 MG TABLET.DR PO SCH (05:59)
[2019-07-24 06:43] LABS: HEMATOCRIT 19.7 % (36.0-47.0); MEAN CORPUSCULAR HEMOGLOBIN 31.8 pg (27.0-33.4); MEAN CORPUSCULAR HGB CONC 34.8 g/dL (32.0-36.0); MEAN CORPUSCULAR VOLUME 91 fl (80-97); PLATELET COUNT 216 10^3/uL (150-450); RED BLOOD COUNT 2.16 10^6/uL (3.72-5.28); RED CELL DISTRIBUTION WIDTH 18.2 % (11.5-14.0); WHITE BLOOD COUNT 13.6 10^3/uL (4.0-10.5)
[2019-07-24 07:00] LABS: ALBUMIN 1.7 g/dL (3.5-5.0); ALKALINE PHOSPHATASE 58 U/L (38-126); ANION GAP 7 (5-19); ASPARTATE AMINO TRANSFERASE 77 U/L (14-36); BILIRUBIN,TOTAL 0.6 mg/dL (0.2-1.3); BLOOD UREA NITROGEN 42 mg/dL (7-20); CARBON DIOXIDE 18 mmol/L (22-30); CHLORIDE 113 mmol/L (98-107); GLUCOSE 101 mg/dL (75-110); POTASSIUM 3.2 mmol/L (3.6-5.0); TOTAL PROTEIN 4.4 g/dL (6.3-8.2)
[2019-07-24 07:08] LABS: HEMOGLOBIN 6.9 g/dL (12.0-15.5)
[2019-07-24 07:10] LABS: CALCIUM 6.6 mg/dL (8.4-10.2)
[2019-07-24 07:12] LABS: ABSOLUTE LYMPHOCYTES# (MANUAL) 0.3 10^3/uL (0.5-4.7); ABSOLUTE MONOCYTES # (MANUAL) 0.5 10^3/uL (0.1-1.4); BASOPHILS % (MANUAL) 0 % (0-2); EOSINOPHILS % (MANUAL) 1 % (0-6); LYMPHOCYTES % (MANUAL) 2 % (13-45); MONOCYTES % (MANUAL) 4 % (3-13); SEGMENTED NEUTROPHILS % (MAN) 93 % (42-78); TOTAL CELLS COUNTED 100
[2019-07-24 07:13] LABS: OVALOCYTES 1+; TOXIC GRANULATION SLIGHT
[2019-07-24 07:14] LABS: BURR CELLS 1+; PLATELET COMMENT ADEQUATE
[2019-07-24 07:16] LABS: ANISOCYTOSIS 2+; POIKILOCYTOSIS SLIGHT
[2019-07-24] MEDS: ASPIRIN 81 MG TABLET, ENT COATED PO SCH (09:01)
[2019-07-24] MEDS: LOSARTAN POTASSIUM 50 MG TABLET PO SCH (09:01)
[2019-07-24] MEDS: HYDROCHLOROTHIAZIDE 12.5 MG TABLET PO SCH (09:02)
[2019-07-24] MEDS: SERTRALINE HCL 50 MG TABLET PO SCH (09:02)
[2019-07-24] MEDS: VALACYCLOVIR HCL 500 MG TABLET PO SCH (09:02)
[2019-07-24] MEDS: HYDROCODONE/ACETAMINOPHEN 5-325 MG TABLET PO PRN (09:02)
[2019-07-24] MEDS: NORMAL SALINE 1000 ML 1,000 ML IV PRN (09:03)
[2019-07-24] MEDS: MEGESTROL ACETATE SUSP 400 MG/10 ML UDCUP PO SCH (10:04)
[2019-07-24] MEDS: ENOXAPARIN SODIUM INJ 40 MG/0.4 ML DISP.SYRIN SUBCUT SCH (10:06)
[2019-07-24] MEDS: POTASSIUM CHLORIDE 10 MEQ TABLET.ER PO SCH ×2 (16:16→22:00)
--- NOTE | 2019-07-24 16:55 | PDOC PROGRESS REPORT ---
Subjective Progress Note for:: 07/24/19 Subjective:: Patient denied any chest pain or difficulty with breathing. No abdominal pain, nausea or vomiting. There is significant decline in her hemoglobin level. Her wound remain fairly clean at this time. Awaiting application of wound vac by the surgical team. Her pain is fairly controlled on her current regimen and she was encouraged to report pain to nursing staff. Reason For Visit: PROTEIN-CALORIE MALNUTRITION,INFECTED PRESSURE Physical Exam Vital Signs: Temp Pulse Resp BP Pulse Ox 99.0 F 84 18 101/50 L 94 07/24/19 11:14 07/24/19 11:14 07/24/19 11:14 07/24/19 11:14 07/24/19 11:14 Intake & Output 07/23/19 07/24/19 07/25/19 06:59 06:59 06:59 Intake Total 725 2842 1846 Output Total 600 Balance 125 2842 1846 Weight 66.7 kg 66.5 kg Physical Exam: General appearance: PRESENT: mild distress - due to pain Head exam: PRESENT: atraumatic, normocephalic Eye exam: PRESENT: conjunctiva pink. ABSENT: pallor, sclera icterus Ear exam: PRESENT: normal external ear exam Mouth exam: PRESENT: moist, tongue midline Neck exam: PRESENT: full ROM. Respiratory exam: PRESENT: clear to auscultation ijeoma, decreased breath sounds - at lung bases Cardiovascular exam: PRESENT: RRR, +S1, +S2. ABSENT: diastolic murmur, rubs, systolic murmur GI/Abdominal exam: PRESENT: normal bowel sounds, soft. ABSENT: distended, guarding, mass, organomegaly, rebound, tenderness Extremities exam: ABSENT: pedal edema Neurological exam: PRESENT: alert, awake, oriented to person, oriented to place, oriented to time, oriented to situation, CN II-XII grossly intact. ABSENT: motor sensory deficit Psychiatric exam: PRESENT: appropriate affect, normal mood. ABSENT: homicidal ideation, suicidal ideation Skin exam: PRESENT: dry, warm, large clean, pink, sacral decutibus crater s/p debridement wound with dressing. ABSENT: cyanosis Results Laboratory Results: 07/24/19 06:02 07/24/19 06:02 07/24/19 07/24/19 06:02 06:02 WBC 13.6 H RBC 2.16 L Hgb 6.9 L Hct 19.7 L MCV 91 MCH 31.8 MCHC 34.8 RDW 18.2 H Plt Count 216 Seg Neutrophils % Not Reportable Sodium 137.9 Potassium 3.2 L Chloride 113 H Carbon Dioxide 18 L Anion Gap 7 BUN 42 H Creatinine 0.92 Est GFR ( Amer) > 60 Glucose 101 Calcium 6.6 L* Total Bilirubin 0.6 AST 77 H Alkaline Phosphatase 58 Total Protein 4.4 L Albumin 1.7 L Impressions: Abdomen/Pelvis CT 07/21/19 14:05 IMPRESSION: 1. Gas-containing subcutaneous collection posterior to the sacrum/ coccyx that is associated with dermal thickening and inflammatory stranding of the surrounding fat and measures up to 5 cm in transverse diameter and 7.8 cm in craniocaudal diameter. There is no associated erosion of the sacrum or coccyx. 2. Age indeterminate compression deformity of the superior endplate of the L3 vertebral body with less than 25% loss of the vertebral body height and no retropulsion that is new from 10/15/2018. 3. New 13 x 10 mm cystic lesions in the pancreatic body (image 35 of series 3). 4. Consolidative opacities with air bronchograms in the left lower lobe that could represent atelectasis or an infection. Assessment & Plan - Diagnosis (1) Sacral decubitus ulcer Qualifiers: Pressure injury stage: stage 4 Qualified Code(s): L89.154 - Pressure ulcer of sacral region, stage 4 Is this a current diagnosis for this admission?: Yes (2) Protein calorie malnutrition Qualifiers: Protein-calorie malnutrition severity: moderate Qualified Code(s): E44.0 - Moderate protein-calorie malnutrition Is this a current diagnosis for this admission?: Yes (3) Failure of outpatient treatment Is this a current diagnosis for this admission?: Yes (4) RAIZA (acute kidney injury) Is this a current diagnosis for this admission?: Yes (5) Senile debility Is this a current diagnosis for this admission?: Yes (6) Generalized weakness Is this a current diagnosis for this admission?: Yes (7) Difficulty walking Is this a current diagnosis for this admission?: Yes (8) HTN (hypertension) Qualifiers: Hypertension type: essential hypertension Qualified Code(s): I10 - Essential (primary) hypertension Is this a current diagnosis for this admission?: Yes (9) HLD (hyperlipidemia) Qualifiers: Hyperlipidemia type: unspecified Qualified Code(s): E78.5 - Hyperlipidemia, unspecified Is this a current diagnosis for this admission?: Yes (10) Multiple myeloma Qualifiers: Multiple myeloma remission status: not in remission Qualified Code(s): C90.00 - Multiple myeloma not having achieved remission Is this a current diagnosis for this admission?: Yes (11) Osteoarthritis involving multiple 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 Is this a current diagnosis for this admission?: Yes (12) Anemia requiring transfusions Is this a current diagnosis for this admission?: Yes Plan: Patient will be transfused 2 units PRBC. Monitor post transfusion CBC for he moglobin evaluation. - Time Time Spent with patient: 25-34 minutes Level of Care: MEDICAL Medications reviewed and adjusted accordingly: Yes Anticipated discharge: SNF Within: Other - Inpatient Certification Based on my medical assessment, after consideration of the patient's comorbidities, presenting symptoms, or acuity I expect that the services needed warrant INPATIENT care.: Yes I certify that my determination is in accordance with my understanding of Medicare's requirements for reasonable and necessary INPATIENT services [42 CFR 412.3e].: Yes Medical Necessity: Failure to Improve With Outpatient Therapy, Significant Comorbidiites Make Outpatient Treatment Too Risky, Need Close Monitoring Due to Risk of Patient Decompensation, Need For IV Fluids, Need for Pain Control, Need for IV Antibiotics, Risk of Complication if Not Cared For in Hospital, Risk of Diagnosis Which Will Require Inpatient Eval/Care/Monitoring Post Hospital Care: D/C or Transfer Summary - Plan Summary Plan Summary: See attending physician orders for details about care plan. Her overall prognosis remain guarded.
--- NOTE | 2019-07-24 17:12 | PDOC PROGRESS REPORT ---
Subjective Progress Note for:: 07/24/19 Subjective:: No apparent distress Reason For Visit: PROTEIN-CALORIE MALNUTRITION,INFECTED PRESSURE Physical Exam Vital Signs: Temp Pulse Resp BP Pulse Ox 99.1 F 72 16 139/63 H 95 07/24/19 15:22 07/24/19 15:22 07/24/19 15:22 07/24/19 15:22 07/24/19 15:22 Intake & Output 07/23/19 07/24/19 07/25/19 06:59 06:59 06:59 Intake Total 725 2842 1946 Output Total 600 Balance 125 2842 1946 Weight 66.7 kg 66.5 kg Skin exam: PRESENT: other - Sacral decubitus wound appears clean with scant amount of drainage and no oozing. Packing was removed and wound VAC was placed. Results Laboratory Results: 07/24/19 06:02 07/24/19 06:02 07/24/19 07/24/19 07/24/19 06:02 06:02 14:36 WBC 13.6 H RBC 2.16 L Hgb 6.9 L Hct 19.7 L MCV 91 MCH 31.8 MCHC 34.8 RDW 18.2 H Plt Count 216 Seg Neutrophils % Not Reportable Sodium 137.9 Potassium 3.2 L Chloride 113 H Carbon Dioxide 18 L Anion Gap 7 BUN 42 H Creatinine 0.92 Est GFR ( Amer) > 60 Glucose 101 Calcium 6.6 L* Ionized Calcium [place] Magnesium Total Bilirubin 0.6 AST 77 H Alkaline Phosphatase 58 Total Protein 4.4 L Albumin 1.7 L Blood Type A NEGATIVE Antibody Screen NEGATIVE 07/24/19 07/24/19 07/24/19 14:36 14:36 14:36 WBC RBC Hgb Hct MCV MCH MCHC RDW Plt Count Seg Neutrophils % Sodium Potassium Chloride Carbon Dioxide Anion Gap BUN Creatinine Est GFR ( Amer) Glucose Calcium Ionized Calcium [place] 1.00 L Magnesium 1.9 Total Bilirubin AST Alkaline Phosphatase Total Protein Albumin 1.7 L Blood Type Antibody Screen Impressions: Abdomen/Pelvis CT 07/21/19 14:05 IMPRESSION: 1. Gas-containing subcutaneous collection posterior to the sacrum/ coccyx that is associated with dermal thickening and inflammatory stranding of the surrounding fat and measures up to 5 cm in transverse diameter and 7.8 cm in craniocaudal diameter. There is no associated erosion of the sacrum or coccyx. 2. Age indeterminate compression deformity of the superior endplate of the L3 vertebral body with less than 25% loss of the vertebral body height and no retropulsion that is new from 10/15/2018. 3. New 13 x 10 mm cystic lesions in the pancreatic body (image 35 of series 3). 4. Consolidative opacities with air bronchograms in the left lower lobe that could represent atelectasis or an infection. Assessment & Plan - Diagnosis (1) Sacral decubitus ulcer Qualifiers: Pressure injury stage: stage 4 Qualified Code(s): L89.154 - Pressure ulcer of sacral region, stage 4 Is this a current diagnosis for this admission?: Yes Plan: Wound VAC placed.
[2019-07-24 21:50] LABS: VANCOMYCIN,TROUGH 8.9 ug/mL (5.0-20.0)
[2019-07-24] MEDS: VANCOMYCIN HCL 1,000 MG in DEXTROSE 5%-WATER 250 ML IV SCH (22:00)
[2019-07-25] MEDS: PIPERACILLIN SODIUM/TAZOBACTAM 3.375 GM in NORMAL SALINE 100 ML IV SCH ×4 (03:00→21:21)
[2019-07-25] MEDS: PANTOPRAZOLE SODIUM 40 MG TABLET.DR PO SCH (05:35)
--- NOTE | 2019-07-25 08:39 | PDOC PROGRESS REPORT ---
Subjective Progress Note for:: 07/25/19 Subjective:: dementia Reason For Visit: PROTEIN-CALORIE MALNUTRITION,INFECTED PRESSURE Physical Exam Vital Signs: Temp Pulse Resp BP Pulse Ox 98.6 F 64 22 H 106/43 L 95 07/25/19 05:10 07/25/19 05:10 07/25/19 05:10 07/25/19 05:10 07/25/19 05:10 Intake & Output 07/24/19 07/25/19 07/26/19 06:59 06:59 06:59 Intake Total 2842 2296 600 Balance 2842 2296 600 Weight 66.5 kg 66.5 kg General appearance: PRESENT: no acute distress Head exam: PRESENT: normocephalic Eye exam: PRESENT: EOMI Ear exam: PRESENT: normal external ear exam Mouth exam: PRESENT: moist Teeth exam: PRESENT: edentulous Neck exam: PRESENT: full ROM Respiratory exam: PRESENT: clear to auscultation ijeoma Cardiovascular exam: PRESENT: RRR Pulses: PRESENT: +2 pedal pulses bilateral Breast: PRESENT: Normal GI/Abdominal exam: PRESENT: soft Rectal exam: PRESENT: deferred, other - wound vac in place Extremities exam: PRESENT: other - bed ridden Neurological exam: PRESENT: awake Skin exam: PRESENT: dry Results Laboratory Results: 07/24/19 06:02 07/24/19 06:02 07/24/19 07/24/19 07/24/19 14:36 14:36 14:36 Ionized Calcium [place] 1.00 L Magnesium Albumin 1.7 L Blood Type A NEGATIVE Antibody Screen NEGATIVE 07/24/19 14:36 Ionized Calcium [place] Magnesium 1.9 Albumin Blood Type Antibody Screen Impressions: Abdomen/Pelvis CT 07/21/19 14:05 IMPRESSION: 1. Gas-containing subcutaneous collection posterior to the sacrum/ coccyx that is associated with dermal thickening and inflammatory stranding of the surrounding fat and measures up to 5 cm in transverse diameter and 7.8 cm in craniocaudal diameter. There is no associated erosion of the sacrum or coccyx. 2. Age indeterminate compression deformity of the superior endplate of the L3 v ertebral body with less than 25% loss of the vertebral body height and no retropulsion that is new from 10/15/2018. 3. New 13 x 10 mm cystic lesions in the pancreatic body (image 35 of series 3). 4. Consolidative opacities with air bronchograms in the left lower lobe that could represent atelectasis or an infection. Assessment & Plan - Plan Summary Plan Summary: s/p extensive debridement sacral decubuti stage 4 pt with dementia poor prognosis recommend snf.
[2019-07-25] MEDS: ENOXAPARIN SODIUM INJ 40 MG/0.4 ML DISP.SYRIN SUBCUT SCH (10:14)
[2019-07-25] MEDS: MEGESTROL ACETATE SUSP 400 MG/10 ML UDCUP PO SCH (10:14)
[2019-07-25] MEDS: VALACYCLOVIR HCL 500 MG TABLET PO SCH (10:15)
[2019-07-25] MEDS: LOSARTAN POTASSIUM 50 MG TABLET PO SCH (10:15)
[2019-07-25] MEDS: ASPIRIN 81 MG TABLET, ENT COATED PO SCH (10:16)
[2019-07-25] MEDS: HYDROCHLOROTHIAZIDE 12.5 MG TABLET PO SCH (10:16)
[2019-07-25] MEDS: SERTRALINE HCL 50 MG TABLET PO SCH (10:16)
[2019-07-25] MEDS: VANCOMYCIN HCL 1,500 MG in DEXTROSE 5%-WATER 250 ML IV SCH (12:03)
--- NOTE | 2019-07-25 12:54 | PDOC PROGRESS REPORT ---
Subjective Progress Note for:: 07/25/19 Subjective:: Patient denied any chest pain or difficulty with breathing. No abdominal pain, nausea or vomiting. PO intake remain poor. Post transfusion with 2 units PRBC. No reported fever or chills. Reason For Visit: PROTEIN-CALORIE MALNUTRITION,INFECTED PRESSURE Physical Exam Vital Signs: Temp Pulse Resp BP Pulse Ox 98.6 F 67 16 135/53 H 95 07/25/19 12:02 07/25/19 12:02 07/25/19 12:02 07/25/19 12:02 07/25/19 12:02 Intake & Output 07/24/19 07/25/19 07/26/19 06:59 06:59 06:59 Intake Total 2842 2296 700 Balance 2842 2296 700 Weight 66.5 kg 66.5 kg Physical Exam: General appearance: PRESENT:No acute distress - pain is satisfactorily controlled Head exam: PRESENT: atraumatic, normocephalic Eye exam: PRESENT: conjunctiva pink. ABSENT: pallor, sclera icterus Mouth exam: PRESENT: moist, tongue midline Neck exam: PRESENT: full ROM. Respiratory exam: PRESENT: clear to auscultation ijeoma, decreased breath sounds - at lung bases Cardiovascular exam: PRESENT: RRR, +S1, +S2. ABSENT: diastolic murmur, rubs, systolic murmur GI/Abdominal exam: PRESENT: normal bowel sounds, soft. ABSENT: distended, guarding, mass, organomegaly, rebound, tenderness Extremities exam: ABSENT: pedal edema Neurological exam: PRESENT: alert, awake, oriented to person, oriented to place, oriented to time, oriented to situation, CN II-XII grossly intact. ABSENT: motor sensory deficit Psychiatric exam: PRESENT: appropriate affect, normal mood. ABSENT: homicidal ideation, suicidal ideation Skin exam: PRESENT: dry, warm, wound vac in sit to her post debridement sacral pressure ulcer. Results Laboratory Results: 07/24/19 06:02 07/24/19 06:02 07/24/19 07/24/19 07/24/19 14:36 14:36 14:36 Ionized Calcium [place] 1.00 L Magnesium Albumin 1.7 L Blood Type A NEGATIVE Antibody Screen NEGATIVE 07/24/19 14:36 Ionized Calcium [place] Magnesium 1.9 Albumin Blood Type Antibody Screen Impressions: Abdomen/Pelvis CT 07/21/19 14:05 IMPRESSION: 1. Gas-containing subcutaneous collection posterior to the sacrum/ coccyx that is associated with dermal thickening and inflammatory stranding of the surrounding fat and measures up to 5 cm in transverse diameter and 7.8 cm in craniocaudal diameter. There is no associated erosion of the sacrum or coccyx. 2. Age indeterminate compression deformity of the superior endplate of the L3 vertebral body with less than 25% loss of the vertebral body height and no retropulsion that is new from 10/15/2018. 3. New 13 x 10 mm cystic lesions in the pancreatic body (image 35 of series 3). 4. Consolidative opacities with air bronchograms in the left lower lobe that could represent atelectasis or an infection. Assessment & Plan - Diagnosis (1) Sacral decubitus ulcer Qualifiers: Pressure injury stage: stage 4 Qualified Code(s): L89.154 - Pressure ulcer of sacral region, stage 4 Is this a current diagnosis for this admission?: Yes (2) Protein calorie malnutrition Qualifiers: Protein-calorie malnutrition severity: moderate Qualified Code(s): E44.0 - Moderate protein-calorie malnutrition Is this a current diagnosis for this admission?: Yes (3) Failure of outpatient treatment Is this a current diagnosis for this admission?: Yes (4) RAIZA (acute kidney injury) Is this a current diagnosis for this admission?: Yes (5) Senile debility Is this a current diagnosis for this admission?: Yes (6) Generalized weakness Is this a current diagnosis for this admission?: Yes (7) Difficulty walking Is this a current diagnosis for this admission?: Yes (8) HTN (hypertension) Qualifiers: Hypertension type: essential hypertension Qualified Code(s): I10 - Essential (primary) hypertension Is this a current diagnosis for this admission?: Yes (9) HLD (hyperlipidemia) Qualifiers: Hyperlipidemia type: unspecified Qualified Code(s): E78.5 - Hyperlipidemia, unspecified Is this a current diagnosis for this admission?: Yes (10) Multiple myeloma Qualifiers: Multiple myeloma remission status: not in remission Qualified Code(s): C90.00 - Multiple myeloma not having achieved remission Is this a current diagnosis for this admission?: Yes (11) Osteoarthritis involving multiple 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 Is this a current diagnosis for this admission?: Yes (12) Anemia requiring transfusions Is this a current diagnosis for this admission?: Yes - Time Time Spent with patient: 25-34 minutes Level of Care: MEDICAL Medications reviewed and adjusted accordingly: Yes Anticipated discharge: SNF Within: Other - Inpatient Certification Based on my medical assessment, after consideration of the patient's comorbidities, presenting symptoms, or acuity I expect that the services needed warrant INPATIENT care.: Yes I certify that my determination is in accordance with my understanding of Medicare's requirements for reasonable and necessary INPATIENT services [42 CFR 412.3e].: Yes Medical Necessity: Failure to Improve With Outpatient Therapy, Significant Comorbidiites Make Outpatient Treatment Too Risky, Need Close Monitoring Due to Risk of Patient Decompensation, Need For IV Fluids, Need for IV Antibiotics, Risk of Complication if Not Cared For in Hospital, Risk of Diagnosis Which Will Require Inpatient Eval/Care/Monitoring Post Hospital Care: D/C or Transfer Summary - Plan Summary Plan Summary: Continue current medication management. Obtain post transfusion CBC. Follow up on blood culture results.
[2019-07-25 13:28] LABS: HEMATOCRIT 26.8 % (36.0-47.0); MEAN CORPUSCULAR HGB CONC 35.3 g/dL (32.0-36.0); MEAN CORPUSCULAR VOLUME 88 fl (80-97); PLATELET COUNT 221 10^3/uL (150-450); RED BLOOD COUNT 3.06 10^6/uL (3.72-5.28); WHITE BLOOD COUNT 13.6 10^3/uL (4.0-10.5)
[2019-07-25 13:30] LABS: HEMOGLOBIN 9.5 g/dL (12.0-15.5)
[2019-07-25 13:49] LABS: ABSOLUTE LYMPHOCYTES# (MANUAL) 0.1 10^3/uL (0.5-4.7); BAND NEUTROPHILS % (MANUAL) 2 % (3-5); BASOPHILS % (MANUAL) 0 % (0-2); EOSINOPHILS % (MANUAL) 0 % (0-6); LYMPHOCYTES % (MANUAL) 1 % (13-45); MONOCYTES % (MANUAL) 0 % (3-13); SEGMENTED NEUTROPHILS % (MAN) 97 % (42-78); TOTAL CELLS COUNTED 100
[2019-07-25 13:52] LABS: ANISOCYTOSIS 1+; OVALOCYTES 1+; PAPPENHEIMER BODIES PRESENT; PLATELET COMMENT ADEQUATE; PLATELET LARGE PRESENT; POIKILOCYTOSIS 1+; POLYCHROMASIA SLIGHT; SCHISTOCYTES SLIGHT; TARGET CELLS SLIGHT; TOXIC GRANULATION 1+; TOXIC VACUOLATION PRESENT
[2019-07-25] MEDS: HYDROCODONE/ACETAMINOPHEN 5-325 MG TABLET PO PRN (16:15)
[2019-07-25] MEDS: NORMAL SALINE 1000 ML 1,000 ML IV PRN (21:21)
[2019-07-26] MEDS: PIPERACILLIN SODIUM/TAZOBACTAM 3.375 GM in NORMAL SALINE 100 ML IV SCH ×4 (02:57→21:07)
[2019-07-26] MEDS: HYDROCODONE/ACETAMINOPHEN 5-325 MG TABLET PO PRN ×3 (03:09→17:10)
[2019-07-26] MEDS: PANTOPRAZOLE SODIUM 40 MG TABLET.DR PO SCH (05:53)
[2019-07-26] MEDS: ENOXAPARIN SODIUM INJ 40 MG/0.4 ML DISP.SYRIN SUBCUT SCH (09:32)
[2019-07-26] MEDS: MULTIVITAMIN TABLET PO SCH (09:33)
[2019-07-26] MEDS: LOSARTAN POTASSIUM 50 MG TABLET PO SCH (09:33)
[2019-07-26] MEDS: SERTRALINE HCL 50 MG TABLET PO SCH (09:34)
[2019-07-26] MEDS: ASPIRIN 81 MG TABLET, ENT COATED PO SCH (09:34)
[2019-07-26] MEDS: ASCORBIC ACID 500 MG TABLET PO SCH ×2 (09:34→17:10)
[2019-07-26] MEDS: VALACYCLOVIR HCL 500 MG TABLET PO SCH (09:34)
[2019-07-26] MEDS: HYDROCHLOROTHIAZIDE 12.5 MG TABLET PO SCH (09:34)
[2019-07-26] MEDS: MEGESTROL ACETATE SUSP 400 MG/10 ML UDCUP PO SCH (09:36)
[2019-07-26] MEDS: ZINC SULFATE 220 MG CAPSULE PO SCH (09:37)
[2019-07-26] MEDS: VANCOMYCIN HCL 1,500 MG in DEXTROSE 5%-WATER 250 ML IV SCH (10:38)
[2019-07-26] MEDS ORDERED: MORPHINE SULFATE 10 MG/ML INJ ONE (13:33)
[2019-07-26] MEDS ORDERED: MORPHINE SULFATE 10 MG/ML INJ IV PRN (13:37)
--- NOTE | 2019-07-26 14:51 | PDOC PROGRESS REPORT ---
Subjective Progress Note for:: 07/26/19 Subjective:: Patient denied any chest pain or difficulty with breathing. No abdominal pain, nausea or vomiting. PO intake remain a challenge. No reported fever or chills. Reason For Visit: PROTEIN-CALORIE MALNUTRITION,INFECTED PRESSURE Physical Exam Vital Signs: Temp Pulse Resp BP Pulse Ox 98.6 F 64 15 100/75 96 07/26/19 11:49 07/26/19 11:49 07/26/19 11:49 07/26/19 11:49 07/26/19 11:49 Intake & Output 07/25/19 07/26/19 07/27/19 06:59 06:59 06:59 Intake Total 3296 1415 706 Output Total 700 325 Balance 3296 715 381 Weight 66.5 kg 79.1 kg Physical Exam: General appearance: PRESENT:No acute distress - pain is satisfactorily controlled Head exam: PRESENT: atraumatic, normocephalic Eye exam: PRESENT: conjunctiva pink. ABSENT: pallor, sclera icterus Mouth exam: PRESENT: moist, tongue midline Respiratory exam: PRESENT: clear to auscultation ijeoma, decreased breath sounds - at lung bases Cardiovascular exam: PRESENT: RRR, +S1, +S2. ABSENT: diastolic murmur, rubs, systolic murmur GI/Abdominal exam: PRESENT: normal bowel sounds, soft. ABSENT: distended, guarding, mass, organomegaly, rebound, tenderness Extremities exam: ABSENT: pedal edema Neurological exam: PRESENT: alert, awake, oriented to person, oriented to place, oriented to time, oriented to situation, CN II-XII grossly intact. ABSENT: motor sensory deficit Psychiatric exam: PRESENT: appropriate affect, normal mood. ABSENT: homicidal ideation, suicidal ideation Skin exam: PRESENT: dry, warm, wound vac in situ her post debridement sacral p ressure ulcer. Results Laboratory Results: 07/25/19 13:10 07/24/19 06:02 Impressions: Abdomen/Pelvis CT 07/21/19 14:05 IMPRESSION: 1. Gas-containing subcutaneous collection posterior to the sacrum/ coccyx that is associated with dermal thickening and inflammatory stranding of the surrounding fat and measures up to 5 cm in transverse diameter and 7.8 cm in craniocaudal diameter. There is no associated erosion of the sacrum or coccyx. 2. Age indeterminate compression deformity of the superior endplate of the L3 vertebral body with less than 25% loss of the vertebral body height and no retropulsion that is new from 10/15/2018. 3. New 13 x 10 mm cystic lesions in the pancreatic body (image 35 of series 3). 4. Consolidative opacities with air bronchograms in the left lower lobe that could represent atelectasis or an infection. Assessment & Plan - Diagnosis (1) Sacral decubitus ulcer Qualifiers: Pressure injury stage: stage 4 Qualified Code(s): L89.154 - Pressure ulcer of sacral region, stage 4 Is this a current diagnosis for this admission?: Yes (2) Protein calorie malnutrition Qualifiers: Protein-calorie malnutrition severity: moderate Qualified Code(s): E44.0 - Moderate protein-calorie malnutrition Is this a current diagnosis for this admission?: Yes (3) Failure of outpatient treatment Is this a current diagnosis for this admission?: Yes (4) RAIZA (acute kidney injury) Is this a current diagnosis for this admission?: Yes (5) Senile debility Is this a current diagnosis for this admission?: Yes (6) Generalized weakness Is this a current diagnosis for this admission?: Yes (7) Difficulty walking Is this a current diagnosis for this admission?: Yes (8) HTN (hypertension) Qualifiers: Hypertension type: essential hypertension Qualified Code(s): I10 - Essential (primary) hypertension Is this a current diagnosis for this admission?: Yes (9) HLD (hyperlipidemia) Qualifiers: Hyperlipidemia type: unspecified Qualified Code(s): E78.5 - Hyperlipidemia, unspecified Is this a current diagnosis for this admission?: Yes (10) Multiple myeloma Qualifiers: Multiple myeloma remission status: not in remission Qualified Code(s): C90.00 - Multiple myeloma not having achieved remission Is this a current diagnosis for this admission?: Yes (11) Osteoarthritis involving multiple 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 Is this a current diagnosis for this admission?: Yes (12) Anemia requiring transfusions Is this a current diagnosis for this admission?: Yes - Time Time Spent with patient: 25-34 minutes Level of Care: MEDICAL Medications reviewed and adjusted accordingly: Yes Anticipated discharge: SNF Within: Other - Inpatient Certification Based on my medical assessment, after consideration of the patient's comorbidities, presenting symptoms, or acuity I expect that the services needed warrant INPATIENT care.: Yes I certify that my determination is in accordance with my understanding of [facility]'s requirements for reasonable and necessary INPATIENT services [42 CFR 412.3e].: Yes Medical Necessity: Failure to Improve With Outpatient Therapy, Significant Comorbidiites Make Outpatient Treatment Too Risky, Need Close Monitoring Due to Risk of Patient Decompensation, Need For IV Fluids, Need for Pain Control, Need for IV Antibiotics, Risk of Complication if Not Cared For in Hospital, Risk of Diagnosis Which Will Require Inpatient Eval/Care/Monitoring Post Hospital Care: D/C or Transfer Summary - Plan Summary Plan Summary: Continue current antibiotic therapy. D/C IV morphine usage. Encouraged use of [place] oral therapy for pain management.
[2019-07-26] MEDS: NORMAL SALINE 1000 ML 1,000 ML IV PRN (21:07)
[2019-07-27] MEDS: PIPERACILLIN SODIUM/TAZOBACTAM 3.375 GM in NORMAL SALINE 100 ML IV SCH ×4 (03:39→20:16)
[2019-07-27] MEDS: HYDROCODONE/ACETAMINOPHEN 5-325 MG TABLET PO PRN ×3 (06:59→18:48)
[2019-07-27] MEDS: PANTOPRAZOLE SODIUM 40 MG TABLET.DR PO SCH (06:59)
[2019-07-27] MEDS: MEGESTROL ACETATE SUSP 400 MG/10 ML UDCUP PO SCH (09:05)
[2019-07-27] MEDS: ENOXAPARIN SODIUM INJ 40 MG/0.4 ML DISP.SYRIN SUBCUT SCH (09:06)
[2019-07-27] MEDS: HYDROCHLOROTHIAZIDE 12.5 MG TABLET PO SCH (09:06)
[2019-07-27] MEDS: ZINC SULFATE 220 MG CAPSULE PO SCH (09:06)
[2019-07-27] MEDS: VALACYCLOVIR HCL 500 MG TABLET PO SCH (09:06)
[2019-07-27] MEDS: LOSARTAN POTASSIUM 50 MG TABLET PO SCH (09:07)
[2019-07-27] MEDS: MULTIVITAMIN TABLET PO SCH (09:07)
[2019-07-27] MEDS: ASCORBIC ACID 500 MG TABLET PO SCH ×2 (09:07→17:02)
[2019-07-27] MEDS: SERTRALINE HCL 50 MG TABLET PO SCH (09:07)
[2019-07-27] MEDS: ASPIRIN 81 MG TABLET, ENT COATED PO SCH (09:07)
[2019-07-27] MEDS: VANCOMYCIN HCL 1,500 MG in DEXTROSE 5%-WATER 250 ML IV SCH (09:16)
--- NOTE | 2019-07-27 11:43 | PDOC PROGRESS REPORT ---
Subjective Progress Note for:: 07/27/19 Subjective:: Patient denied any chest pain or difficulty with breathing. No abdominal pain, nausea or vomiting. No reported fever or chills. She is schedule for wound vac dressing change later today. Reason For Visit: PROTEIN-CALORIE MALNUTRITION,INFECTED PRESSURE Physical Exam Vital Signs: Temp Pulse Resp BP Pulse Ox 97.5 F 50 L 20 150/43 H 96 07/27/19 07:22 07/27/19 07:22 07/27/19 07:22 07/27/19 07:22 07/27/19 07:22 Intake & Output 07/26/19 07/27/19 07/28/19 06:59 06:59 06:59 Intake Total 1415 2346 350 Output Total 700 1225 Balance 715 1121 350 Weight 79.1 kg 80.9 kg Physical Exam: General appearance: PRESENT:No acute distress - pain is satisfactorily controlled Head exam: PRESENT: atraumatic, normocephalic Eye exam: PRESENT: conjunctiva pink. ABSENT: pallor, sclera icterus Mouth exam: PRESENT: moist, tongue midline Respiratory exam: PRESENT: clear to auscultation ijeoma, decreased breath sounds - at lung bases Cardiovascular exam: PRESENT: RRR, +S1, +S2. ABSENT: diastolic murmur, rubs, systolic murmur GI/Abdominal exam: PRESENT: normal bowel sounds, soft. ABSENT: distended, guarding, mass, organomegaly, rebound, tenderness Extremities exam: ABSENT: pedal edema Neurological exam: PRESENT: alert, awake, oriented to person, oriented to place, oriented to time, oriented to situation, CN II-XII grossly intact. ABSENT: motor sensory deficit Psychiatric exam: PRESENT: appropriate affect, normal mood. ABSENT: homicidal ideation, suicidal ideation Skin exam: PRESENT: dry, warm, wound vac in situ her post debridement sacral pressure ulcer. Results Laboratory Results: 07/25/19 13:10 07/24/19 06:02 07/21/19 20:40 Blood Blood Culture - Final NO GROWTH IN 5 DAYS 07/21/19 16:20 Blood Blood Culture - Final NO GROWTH IN 5 DAYS Impressions: Abdomen/Pelvis CT 07/21/19 14:05 IMPRESSION: 1. Gas-containing subcutaneous collection posterior to the sacrum/ coccyx that is associated with dermal thickening and inflammatory stranding of the surrounding fat and measures up to 5 cm in transverse diameter and 7.8 cm in craniocaudal diameter. There is no associated erosion of the sacrum or coccyx. 2. Age indeterminate compression deformity of the superior endplate of the L3 vertebral body with less than 25% loss of the vertebral body height and no retropulsion that is new from 10/15/2018. 3. New 13 x 10 mm cystic lesions in the pancreatic body (image 35 of series 3). 4. Consolidative opacities with air bronchograms in the left lower lobe that could represent atelectasis or an infection. Assessment & Plan - Diagnosis (1) Sacral decubitus ulcer Qualifiers: Pressure injury stage: stage 4 Qualified Code(s): L89.154 - Pressure ulcer of sacral region, stage 4 Is this a current diagnosis for this admission?: Yes (2) Protein calorie malnutrition Qualifiers: Protein-calorie malnutrition severity: moderate Qualified Code(s): E44.0 - Moderate protein-calorie malnutrition Is this a current diagnosis for this admission?: Yes (3) Failure of outpatient treatment Is this a current diagnosis for this admission?: Yes (4) RAIZA (acute kidney injury) Is this a current diagnosis for this admission?: Yes (5) Senile debility Is this a current diagnosis for this admission?: Yes (6) Generalized weakness Is this a current diagnosis for this admission?: Yes (7) Difficulty walking Is this a current diagnosis for this admission?: Yes (8) HTN (hypertension) Qualifiers: Hypertension type: essential hypertension Qualified Code(s): I10 - Essential (primary) hypertension Is this a current diagnosis for this admission?: Yes (9) HLD (hyperlipidemia) Qualifiers: Hyperlipidemia type: unspecified Qualified Code(s): E78.5 - Hyperlipidemia, unspecified Is this a current diagnosis for this admission?: Yes (10) Multiple myeloma Qualifiers: Multiple myeloma remission status: not in remission Qualified Code(s): C90.00 - Multiple myeloma not having achieved remission Is this a current diagnosis for this admission?: Yes (11) Osteoarthritis involving multiple 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 Is this a current diagnosis for this admission?: Yes (12) Anemia requiring transfusions Is this a current diagnosis for this admission?: Yes - Time Time Spent with patient: 25-34 minutes Level of Care: MEDICAL Medications reviewed and adjusted accordingly: Yes Anticipated discharge: SNF Within: Other - Inpatient Certification Based on my medical assessment, after consideration of the patient's comorbidities, presenting symptoms, or acuity I expect that the services needed warrant INPATIENT care.: Yes I certify that my determination is in accordance with my understanding of Medicare's requirements for reasonable and necessary INPATIENT services [42 CFR 412.3e].: Yes Medical Necessity: Failure to Improve With Outpatient Therapy, Significant Comorbidiites Make Outpatient Treatment Too Risky, Need Close Monitoring Due to Risk of Patient Decompensation, Need For IV Fluids, Need for IV Antibiotics, Risk of Complication if Not Cared For in Hospital, Risk of Diagnosis Which Will Require Inpatient Eval/Care/Monitoring Post Hospital Care: D/C or Transfer Summary - Plan Summary Plan Summary: Continue current medication management. Request for PT evaluation for ambulatory safety and rehabilitation. Follow up on SNF placement.
[2019-07-27] MEDS: NORMAL SALINE 1000 ML 1,000 ML IV PRN (20:25)
--- NOTE | 2019-07-27 21:19 | PDOC PROGRESS REPORT ---
Subjective Progress Note for:: 07/27/19 Reason For Visit: PROTEIN-CALORIE MALNUTRITION,INFECTED PRESSURE Physical Exam Vital Signs: Temp Pulse Resp BP Pulse Ox 98.2 F 52 L 16 136/62 H 97 07/27/19 15:51 07/27/19 15:51 07/27/19 15:51 07/27/19 15:51 07/27/19 15:51 Intake & Output 07/26/19 07/27/19 07/28/19 06:59 06:59 06:59 Intake Total 1415 2346 2050 Output Total 700 1225 350 Balance 715 1121 1700 Weight 79.1 kg 80.9 kg Results Laboratory Results: 07/25/19 13:10 07/24/19 06:02 07/21/19 20:40 Blood Blood Culture - Final NO GROWTH IN 5 DAYS Impressions: Abdomen/Pelvis CT 07/21/19 14:05 IMPRESSION: 1. Gas-containing subcutaneous collection posterior to the sacrum/ coccyx that is associated with dermal thickening and inflammatory stranding of the surrounding fat and measures up to 5 cm in transverse diameter and 7.8 cm in craniocaudal diameter. There is no associated erosion of the sacrum or coccyx. 2. Age indeterminate compression deformity of the superior endplate of the L3 vertebral body with less than 25% loss of the vertebral body height and no retropulsion that is new from 10/15/2018. 3. New 13 x 10 mm cystic lesions in the pancreatic body (image 35 of series 3). 4. Consolidative opacities with air bronchograms in the left lower lobe that could represent atelectasis or an infection. Assessment & Plan - Diagnosis (1) Sacral decubitus ulcer Qualifiers: Pressure injury stage: stage 4 Qualified Code(s): L89.154 - Pressure ulcer of sacral region, stage 4 Is this a current diagnosis for this admission?: Yes - Plan Summary Plan Summary: This is an 88-year-old female with a large, stage IV pressure ulcer to the sacrum. The wound VAC was changed at the bedside today. The defect remains approximately 13 x 11 cm. There is healthy tissue present in the base of the wound. There is no active necrosis or purulence. Continue with wound VAC changes every 3 days. Awaiting SNF placement.
--- NOTE | 2019-07-27 21:22 | Operative Report ---
Nonrecallable Operative Report DATE OF SURGERY: 07/27/19 PREOPERATIVE DIAGNOSIS: Large, stage IV sacral decubitus ulcer POSTOPERATIVE DIAGNOSIS: Large, stage IV sacral decubitus ulcer (11 cm x 13 cm). OPERATION: Removal and replacement of vacuum-assisted wound management system (11 x 13 cm). SURGEON: JAIMEE COLVIN ANESTHESIA: Other - None TISSUE REMOVED OR ALTERED: None COMPLICATIONS: None ESTIMATED BLOOD LOSS: None PROCEDURE: Drains/implants: Wound VAC to sacral decubitus ulcer. Procedure in detail: After informed consent was obtained from the patient, she was rotated into the right lateral decubitus position. The previous wound VAC was removed. The sacral decubitus ulcer was measured to be approximately 11 x 13 cm. It extended to the coccyx. The fascia overlying the coccyx was intact. There was no evidence of ongoing necrosis or infection. There was healthy tissue present in the base, and at the margin. Once this was confirmed, a new black wound VAC sponge was placed into the wound. The occlusive dressing was placed over top of the sponge. The suction disc was applied, and wound VAC suct ion was initiated. There was a good seal noted. The procedure was at this time eluded. All sponge, instrument, and needle counts were correct. Condition: Fair.
[2019-07-28] MEDS: PIPERACILLIN SODIUM/TAZOBACTAM 3.375 GM in NORMAL SALINE 100 ML IV SCH ×4 (02:24→21:16)
[2019-07-28] MEDS: PANTOPRAZOLE SODIUM 40 MG TABLET.DR PO SCH (05:08)
[2019-07-28] MEDS: HYDROCODONE/ACETAMINOPHEN 5-325 MG TABLET PO PRN ×3 (08:48→17:46)
[2019-07-28] MEDS: HYDROCHLOROTHIAZIDE 12.5 MG TABLET PO SCH (09:45)
[2019-07-28] MEDS: ASPIRIN 81 MG TABLET, ENT COATED PO SCH (09:45)
[2019-07-28] MEDS: ASCORBIC ACID 500 MG TABLET PO SCH ×2 (09:45→17:46)
[2019-07-28] MEDS: LOSARTAN POTASSIUM 50 MG TABLET PO SCH (09:45)
[2019-07-28] MEDS: SERTRALINE HCL 50 MG TABLET PO SCH (09:45)
[2019-07-28] MEDS: VALACYCLOVIR HCL 500 MG TABLET PO SCH (09:45)
[2019-07-28] MEDS: MEGESTROL ACETATE SUSP 400 MG/10 ML UDCUP PO SCH (09:46)
[2019-07-28] MEDS: ENOXAPARIN SODIUM INJ 40 MG/0.4 ML DISP.SYRIN SUBCUT SCH (09:46)
[2019-07-28] MEDS: ZINC SULFATE 220 MG CAPSULE PO SCH (09:46)
[2019-07-28] MEDS: MULTIVITAMIN TABLET PO SCH (09:46)
[2019-07-28 10:34] LABS: VANCOMYCIN,TROUGH 10.6 ug/mL (5.0-20.0)
[2019-07-28] MEDS: NORMAL SALINE 1000 ML 1,000 ML IV PRN (17:46)
--- NOTE | 2019-07-28 17:57 | PDOC PROGRESS REPORT ---
Subjective Progress Note for:: 07/28/19 Subjective:: Patient food intake remain a challenge. She reported vomiting but denied nausea or abdominal pain. No constipation. No chest pain or difficulty with breathing. No reported fever or chills. Reason For Visit: PROTEIN-CALORIE MALNUTRITION,INFECTED PRESSURE Physical Exam Vital Signs: Temp Pulse Resp BP Pulse Ox 99.0 F 33 L 18 133/64 H 95 07/28/19 16:19 07/28/19 16:19 07/28/19 16:19 07/28/19 16:19 07/28/19 16:19 Intake & Output 07/27/19 07/28/19 07/29/19 06:59 06:59 06:59 Intake Total 2346 2370 1318 Output Total 1225 1550 Balance 6792 627 4744 Weight 80.9 kg 81.7 kg 81.7 kg Physical Exam: General appearance: PRESENT:No acute distress - pain is satisfactorily controlled Head exam: PRESENT: atraumatic, normocephalic Eye exam: PRESENT: conjunctiva pink. ABSENT: pallor, sclera icterus Mouth exam: PRESENT: moist, tongue midline Respiratory exam: PRESENT: clear to auscultation ijeoma, decreased breath sounds - at lung bases Cardiovascular exam: PRESENT: RRR, +S1, +S2. ABSENT: diastolic murmur, rubs, systolic murmur GI/Abdominal exam: PRESENT: normal bowel sounds, soft. ABSENT: distended, guarding, mass, organomegaly, rebound, tenderness Extremities exam: ABSENT: pedal edema Neurological exam: PRESENT: alert, awake, oriented to person, oriented to place, oriented to time, oriented to situation, CN II-XII grossly intact. ABSENT: motor sensory deficit Psychiatric exam: PRESENT: appropriate affect, normal mood. ABSENT: homicidal ideation, suicidal ideation Skin exam: PRESENT: dry, warm, wound vac in situ her post debridement sacral pressure ulcer. Results Laboratory Results: 07/25/19 13:10 07/28/19 09:50 07/28/19 09:50 Creatinine 0.73 Est GFR ( Amer) > 60 Impressions: Abdomen/Pelvis CT 07/21/19 14:05 IMPRESSION: 1. Gas-containing subcutaneous collection posterior to the sacrum/ coccyx that is associated with dermal thickening and inflammatory stranding of the surrounding fat and measures up to 5 cm in transverse diameter and 7.8 cm in craniocaudal diameter. There is no associated erosion of the sacrum or coccyx. 2. Age indeterminate compression deformity of the superior endplate of the L3 vertebral body with less than 25% loss of the vertebral body height and no retropulsion that is new from 10/15/2018. 3. New 13 x 10 mm cystic lesions in the pancreatic body (image 35 of series 3). 4. Consolidative opacities with air bronchograms in the left lower lobe that could represent atelectasis or an infection. Assessment & Plan - Diagnosis (1) Sacral decubitus ulcer Qualifiers: Pressure injury stage: stage 4 Qualified Code(s): L89.154 - Pressure ulcer of sacral region, stage 4 Is this a current diagnosis for this admission?: Yes (2) Protein calorie malnutrition Qualifiers: Protein-calorie malnutrition severity: moderate Qualified Code(s): E44.0 - Moderate protein-calorie malnutrition Is this a current diagnosis for this admission?: Yes (3) Failure of outpatient treatment Is this a current diagnosis for this admission?: Yes (4) RAIZA (acute kidney injury) Is this a current diagnosis for this admission?: Yes (5) Senile debility Is this a current diagnosis for this admission?: Yes (6) Generalized weakness Is this a current diagnosis for this admission?: Yes (7) Difficulty walking Is this a current diagnosis for this admission?: Yes (8) HTN (hypertension) Qualifiers: Hypertension type: essential hypertension Qualified Code(s): I10 - Essential (primary) hypertension Is this a current diagnosis for this admission?: Yes (9) HLD (hyperlipidemia) Qualifiers: Hyperlipidemia type: unspecified Qualified Code(s): E78.5 - Hyperlipidemia, unspecified Is this a current diagnosis for this admission?: Yes (10) Multiple myeloma Qualifiers: Multiple myeloma remission status: not in remission Qualified Code(s): C90.00 - Multiple myeloma not having achieved remission Is this a current diagnosis for this admission?: Yes (11) Osteoarthritis involving multiple 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 Is this a current diagnosis for this admission?: Yes (12) Anemia requiring transfusions Is this a current diagnosis for this admission?: Yes - Time Time Spent with patient: 25-34 minutes Level of Care: MEDICAL Medications reviewed and adjusted accordingly: Yes Anticipated discharge: SNF Within: Other - Inpatient Certification Based on my medical assessment, after consideration of the patient's comorbidities, presenting symptoms, or acuity I expect that the services needed warrant INPATIENT care.: Yes I certify that my determination is in accordance with my understanding of Medicare's requirements for reasonable and necessary INPATIENT services [42 CFR 412.3e].: Yes Medical Necessity: Failure to Improve With Outpatient Therapy, Significant Comorbidiites Make Outpatient Treatment Too Risky, Need Close Monitoring Due to Risk of Patient Decompensation, Need For IV Fluids, Need for IV Antibiotics, Risk of Complication if Not Cared For in Hospital, Risk of Diagnosis Which Will Require Inpatient Eval/Care/Monitoring Post Hospital Care: D/C or Transfer Summary - Plan Summary Plan Summary: D/C IV Vancomycin. Continue IV Zosyn coverage. Obtain CBC with diff, CMP in AM. Continue all other current medication management. Follow up on disposition plan for SNF placement.
[2019-07-29] MEDS: PIPERACILLIN SODIUM/TAZOBACTAM 3.375 GM in NORMAL SALINE 100 ML IV SCH ×4 (03:22→21:03)
[2019-07-29] MEDS: PANTOPRAZOLE SODIUM 40 MG TABLET.DR PO SCH (05:22)
[2019-07-29 06:02] LABS: HEMATOCRIT 28.2 % (36.0-47.0); HEMOGLOBIN 9.9 g/dL (12.0-15.5); MEAN CORPUSCULAR HEMOGLOBIN 31.3 pg (27.0-33.4); MEAN CORPUSCULAR HGB CONC 35.1 g/dL (32.0-36.0); MEAN CORPUSCULAR VOLUME 89 fl (80-97); PLATELET COUNT 278 10^3/uL (150-450); RED BLOOD COUNT 3.17 10^6/uL (3.72-5.28); RED CELL DISTRIBUTION WIDTH 17.3 % (11.5-14.0); WHITE BLOOD COUNT 10.8 10^3/uL (4.0-10.5)
[2019-07-29 06:24] LABS: ALBUMIN 1.8 g/dL (3.5-5.0); ALKALINE PHOSPHATASE 42 U/L (38-126); ASPARTATE AMINO TRANSFERASE 85 U/L (14-36); BILIRUBIN,DIRECT 0.1 mg/dL (0.0-0.4); BILIRUBIN,TOTAL 0.5 mg/dL (0.2-1.3); BLOOD UREA NITROGEN 13 mg/dL (7-20); CARBON DIOXIDE 20 mmol/L (22-30); GLUCOSE 79 mg/dL (75-110); TOTAL PROTEIN 4.8 g/dL (6.3-8.2)
[2019-07-29 06:33] LABS: ANION GAP 5 (5-19); CHLORIDE 107 mmol/L (98-107)
[2019-07-29 06:40] LABS: CALCIUM 6.8 mg/dL (8.4-10.2)
[2019-07-29 06:45] LABS: ABSOLUTE LYMPHOCYTES# (MANUAL) 0.5 10^3/uL (0.5-4.7); ABSOLUTE MONOCYTES # (MANUAL) 0.5 10^3/uL (0.1-1.4); BASOPHILS % (MANUAL) 0 % (0-2); EOSINOPHILS % (MANUAL) 1 % (0-6); LYMPHOCYTES % (MANUAL) 5 % (13-45); MONOCYTES % (MANUAL) 5 % (3-13); SEGMENTED NEUTROPHILS % (MAN) 89 % (42-78); TOTAL CELLS COUNTED 100
[2019-07-29 06:46] LABS: ANISOCYTOSIS 1+; OVALOCYTES 1+; TOXIC GRANULATION SLIGHT
[2019-07-29 06:47] LABS: BURR CELLS SLIGHT; PLATELET COMMENT ADEQUATE; POIKILOCYTOSIS SLIGHT; SCHISTOCYTES SLIGHT
[2019-07-29] MEDS: MULTIVITAMIN TABLET PO SCH (09:49)
[2019-07-29] MEDS: SERTRALINE HCL 50 MG TABLET PO SCH (09:49)
[2019-07-29] MEDS: ASCORBIC ACID 500 MG TABLET PO SCH ×2 (09:50→21:08)
[2019-07-29] MEDS: LOSARTAN POTASSIUM 50 MG TABLET PO SCH (09:50)
[2019-07-29] MEDS: HYDROCHLOROTHIAZIDE 12.5 MG TABLET PO SCH (09:50)
[2019-07-29] MEDS: ASPIRIN 81 MG TABLET, ENT COATED PO SCH (09:50)
[2019-07-29] MEDS: ENOXAPARIN SODIUM INJ 40 MG/0.4 ML DISP.SYRIN SUBCUT SCH (09:51)
[2019-07-29] MEDS: ZINC SULFATE 220 MG CAPSULE PO SCH (10:00)
[2019-07-29] MEDS: MEGESTROL ACETATE SUSP 400 MG/10 ML UDCUP PO SCH (10:01)
[2019-07-29] MEDS: HYDROCODONE/ACETAMINOPHEN 5-325 MG TABLET PO PRN ×2 (13:53→21:03)
[2019-07-29] MEDS: NORMAL SALINE 1000 ML 1,000 ML IV PRN (14:48)
--- NOTE | 2019-07-29 17:49 | PDOC PROGRESS REPORT ---
Subjective Progress Note for:: 07/29/19 Subjective:: Patient denied any chest pain or difficulty with breathing. No nausea, vomiting, or abdominal pain. PO intake remain a challenge. Awaiting SNF placement Reason For Visit: PROTEIN-CALORIE MALNUTRITION,INFECTED PRESSURE Physical Exam Vital Signs: Temp Pulse Resp BP Pulse Ox 99.2 F 88 16 131/91 H 96 07/28/19 23:30 07/28/19 23:30 07/28/19 23:30 07/28/19 23:30 07/28/19 23:30 Intake & Output 07/28/19 07/29/19 07/30/19 06:59 06:59 06:59 Intake Total 2370 1998 Output Total 1550 900 Balance 820 1098 Weight 81.7 kg 78.4 kg General appearance: PRESENT: no acute distress Head exam: PRESENT: atraumatic, normocephalic Eye exam: PRESENT: conjunctiva pink. ABSENT: scleral icterus Mouth exam: PRESENT: moist Respiratory exam: PRESENT: clear to auscultation ijeoma, decreased breath sounds - at lung bases Cardiovascular exam: PRESENT: RRR. ABSENT: diastolic murmur, rubs, systolic murmur Vascular exam: ABSENT: pallor GI/Abdominal exam: PRESENT: normal bowel sounds, soft. ABSENT: distended, guarding, mass, organolmegaly, rebound, tenderness Extremities exam: ABSENT: pedal edema Neurological exam: PRESENT: alert, awake, oriented to person, oriented to place, oriented to time, oriented to situation, CN II-XII grossly intact. ABSENT: motor sensory deficit Skin exam: PRESENT: dry, warm, other - Sacral decubitus ulcer s/p sharp debridement with wound vac in use. Results Laboratory Results: 07/29/19 05:26 07/29/19 05:26 07/28/19 07/29/19 07/29/19 09:50 05:26 05:26 WBC 10.8 H RBC 3.17 L Hgb 9.9 L Hct 28.2 L MCV 89 MCH 31.3 MCHC 35.1 RDW 17.3 H Plt Count 278 Seg Neutrophils % Not Reportable Sodium 132.3 L Potassium 4.0 Chloride 107 Carbon Dioxide 20 L Anion Gap 5 BUN 13 Creatinine 0.73 0.72 Est GFR ( Amer) > 60 > 60 Glucose 79 Calcium 6.8 L* Total Bilirubin 0.5 AST 85 H Alkaline Phosphatase 42 Total Protein 4.8 L Albumin 1.8 L Impressions: Abdomen/Pelvis CT 07/21/19 14:05 IMPRESSION: 1. Gas-containing subcutaneous collection posterior to the sacrum/ coccyx that is associated with dermal thickening and inflammatory stranding of the surrounding fat and measures up to 5 cm in transverse diameter and 7.8 cm in craniocaudal diameter. There is no associated erosion of the sacrum or coccyx. 2. Age indeterminate compression deformity of the superior endplate of the L3 vertebral body with less than 25% loss of the vertebral body height and no retropulsion that is new from 10/15/2018. 3. New 13 x 10 mm cystic lesions in the pancreatic body (image 35 of series 3). 4. Consolidative opacities with air bronchograms in the left lower lobe that could represent atelectasis or an infection. Assessment & Plan - Diagnosis (1) Sacral decubitus ulcer Qualifiers: Pressure injury stage: stage 4 Qualified Code(s): L89.154 - Pressure ulcer of sacral region, stage 4 Is this a current diagnosis for this admission?: Yes (2) Protein calorie malnutrition Qualifiers: Protein-calorie malnutrition severity: moderate Qualified Code(s): E44.0 - Moderate protein-calorie malnutrition Is this a current diagnosis for this admission?: Yes (3) Failure of outpatient treatment Is this a current diagnosis for this admission?: Yes (4) RAIZA (acute kidney injury) Is this a current diagnosis for this admission?: Yes (5) Senile debility Is this a current diagnosis for this admission?: Yes (6) Generalized weakness Is this a current diagnosis for this admission?: Yes (7) Difficulty walking Is this a current diagnosis for this admission?: Yes (8) HTN (hypertension) Qualifiers: Hypertension type: essential hypertension Qualified Code(s): I10 - Essential (primary) hypertension Is this a current diagnosis for this admission?: Yes (9) HLD (hyperlipidemia) Qualifiers: Hyperlipidemia type: unspecified Qualified Code(s): E78.5 - Hyperlipidemia, unspecified Is this a current diagnosis for this admission?: Yes (10) Multiple myeloma Qualifiers: Multiple myeloma remission status: not in remission Qualified Code(s): C90.00 - Multiple myeloma not having achieved remission Is this a current diagnosis for this admission?: Yes (11) Osteoarthritis involving multiple 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 Is this a current diagnosis for this admission?: Yes (12) Anemia requiring transfusions Is this a current diagnosis for this admission?: Yes - Time Time Spent with patient: 25-34 minutes Level of Care: MEDICAL Medications reviewed and adjusted accordingly: Yes Anticipated discharge: SNF Within: Other - Inpatient Certification Based on my medical assessment, after consideration of the patient's comorbidities, presenting symptoms, or acuity I expect that the services needed warrant INPATIENT care.: Yes I certify that my determination is in accordance with my understanding of Medicare's requirements for reasonable and necessary INPATIENT services [42 CFR 412.3e].: Yes Medical Necessity: Significant Comorbidiites Make Outpatient Treatment Too Risky, Need Close Monitoring Due to Risk of Patient Decompensation, Need For IV Fluids, Need for IV Antibiotics, Risk of Complication if Not Cared For in Hospital, Risk of Diagnosis Which Will Require Inpatient Eval/Care/Monitoring Post Hospital Care: D/C Case Manager Specialist Documentation - Plan Summary Plan Summary: She is Day # 8 of IV Zosyn. She will continue same for total 10 days. Maintain on all other current medication management. Follow up on placement efforts. Her hypocalcemia did correct for low serum albumin to 8.8 mg/dL which s within normal range.
[2019-07-30] MEDS: PIPERACILLIN SODIUM/TAZOBACTAM 3.375 GM in NORMAL SALINE 100 ML IV SCH ×4 (03:14→21:06)
[2019-07-30] MEDS: HYDROCODONE/ACETAMINOPHEN 5-325 MG TABLET PO PRN ×3 (03:51→22:10)
[2019-07-30] MEDS: PANTOPRAZOLE SODIUM 40 MG TABLET.DR PO SCH (05:34)
[2019-07-30] MEDS: LOSARTAN POTASSIUM 50 MG TABLET PO SCH (10:03)
[2019-07-30] MEDS: ZINC SULFATE 220 MG CAPSULE PO SCH (10:03)
[2019-07-30] MEDS: SERTRALINE HCL 50 MG TABLET PO SCH (10:07)
[2019-07-30] MEDS: ASPIRIN 81 MG TABLET, ENT COATED PO SCH (10:07)
[2019-07-30] MEDS: MULTIVITAMIN TABLET PO SCH (10:07)
[2019-07-30] MEDS: HYDROCHLOROTHIAZIDE 12.5 MG TABLET PO SCH (10:07)
[2019-07-30] MEDS: ASCORBIC ACID 500 MG TABLET PO SCH ×2 (10:08→17:33)
[2019-07-30] MEDS: MEGESTROL ACETATE SUSP 400 MG/10 ML UDCUP PO SCH (10:08)
[2019-07-30] MEDS: ENOXAPARIN SODIUM INJ 40 MG/0.4 ML DISP.SYRIN SUBCUT SCH (10:09)
[2019-07-30] MEDS: NORMAL SALINE 1000 ML 1,000 ML IV PRN (15:35)
--- NOTE | 2019-07-30 18:42 | PDOC PROGRESS REPORT ---
Subjective Progress Note for:: 07/30/19 Subjective:: Patient denied any chest pain or difficulty with breathing. No nausea, vomiting, or abdominal pain. Reason For Visit: PROTEIN-CALORIE MALNUTRITION,INFECTED PRESSURE Physical Exam Vital Signs: Temp Pulse Resp BP Pulse Ox 99.4 F 122 H 17 135/57 H 98 07/30/19 15:58 07/30/19 15:58 07/30/19 15:58 07/30/19 15:58 07/30/19 15:58 Intake & Output 07/29/19 07/30/19 07/31/19 06:59 06:59 06:59 Intake Total 19970 1794 Output Total 900 1000 900 Balance 1098 1120 894 Weight 78.4 kg 77.7 kg Physical Exam: General appearance: PRESENT: no acute distress Head exam: PRESENT: atraumatic, normocephalic Eye exam: PRESENT: conjunctiva pink. ABSENT: scleral icterus Mouth exam: PRESENT: moist Respiratory exam: PRESENT: clear to auscultation ijeoma, decreased breath sounds - at lung bases Cardiovascular exam: PRESENT: RRR. ABSENT: diastolic murmur, rubs, systolic murmur Vascular exam: ABSENT: pallor GI/Abdominal exam: PRESENT: normal bowel sounds, soft. ABSENT: distended, guarding, mass, organomegaly, rebound, tenderness Extremities exam: ABSENT: pedal edema Neurological exam: PRESENT: alert, awake, oriented to person, oriented to place, oriented to time, oriented to situation, CN II-XII grossly intact. ABSENT: motor sensory deficit Skin exam: PRESENT: dry, warm, other - Sacral decubitus ulcer s/p sharp de bridement with wound vac in use. Results Laboratory Results: 07/29/19 05:26 07/29/19 05:26 Impressions: Abdomen/Pelvis CT 07/21/19 14:05 IMPRESSION: 1. Gas-containing subcutaneous collection posterior to the sacrum/ coccyx that is associated with dermal thickening and inflammatory stranding of the surrounding fat and measures up to 5 cm in transverse diameter and 7.8 cm in craniocaudal diameter. There is no associated erosion of the sacrum or coccyx. 2. Age indeterminate compression deformity of the superior endplate of the L3 vertebral body with less than 25% loss of the vertebral body height and no retropulsion that is new from 10/15/2018. 3. New 13 x 10 mm cystic lesions in the pancreatic body (image 35 of series 3). 4. Consolidative opacities with air bronchograms in the left lower lobe that could represent atelectasis or an infection. Assessment & Plan - Diagnosis (1) Sacral decubitus ulcer Qualifiers: Pressure injury stage: stage 4 Qualified Code(s): L89.154 - Pressure ulcer of sacral region, stage 4 Is this a current diagnosis for this admission?: Yes (2) Protein calorie malnutrition Qualifiers: Protein-calorie malnutrition severity: moderate Qualified Code(s): E44.0 - Moderate protein-calorie malnutrition Is this a current diagnosis for this admission?: Yes (3) Failure of outpatient treatment Is this a current diagnosis for this admission?: Yes (4) RAIZA (acute kidney injury) Is this a current diagnosis for this admission?: Yes (5) Senile debility Is this a current diagnosis for this admission?: Yes (6) Generalized weakness Is this a current diagnosis for this admission?: Yes (7) Difficulty walking Is this a current diagnosis for this admission?: Yes (8) HTN (hypertension) Qualifiers: Hypertension type: essential hypertension Qualified Code(s): I10 - Essential (primary) hypertension Is this a current diagnosis for this admission?: Yes (9) HLD (hyperlipidemia) Qualifiers: Hyperlipidemia type: unspecified Qualified Code(s): E78.5 - Hyperlipidemia, unspecified Is this a current diagnosis for this admission?: Yes (10) Multiple myeloma Qualifiers: Multiple myeloma remission status: not in remission Qualified Code(s): C90.00 - Multiple myeloma not having achieved remission Is this a current diagnosis for this admission?: Yes (11) Osteoarthritis involving multiple 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 Is this a current diagnosis for this admission?: Yes (12) Anemia requiring transfusions Is this a current diagnosis for this admission?: Yes - Time Time Spent with patient: 25-34 minutes Level of Care: MEDICAL Medications reviewed and adjusted accordingly: Yes Anticipated discharge: SNF Within: Other - Inpatient Certification Based on my medical assessment, after consideration of the patient's comorbidities, presenting symptoms, or acuity I expect that the services needed warrant INPATIENT care.: Yes I certify that my determination is in accordance with my understanding of Medicare's requirements for reasonable and necessary INPATIENT services [42 CFR 412.3e].: Yes Medical Necessity: Failure to Improve With Outpatient Therapy, Significant Comorbidiites Make Outpatient Treatment Too Risky, Need Close Monitoring Due to Risk of Patient Decompensation, Need For IV Fluids, Need for IV Antibiotics, Risk of Complication if Not Cared For in Hospital, Risk of Diagnosis Which Will Require Inpatient Eval/Care/Monitoring Post Hospital Care: D/C or Transfer Summary - Plan Summary Plan Summary: Continue current medication management. Day # 9 on IV Zosyn 10 days therapy regimen.
[2019-07-31] MEDS: PIPERACILLIN SODIUM/TAZOBACTAM 3.375 GM in NORMAL SALINE 100 ML IV SCH ×4 (03:03→21:23)
[2019-07-31] MEDS: PANTOPRAZOLE SODIUM 40 MG TABLET.DR PO SCH (05:07)
--- NOTE | 2019-07-31 08:03 | PDOC PROGRESS REPORT ---
Subjective Progress Note for:: 07/31/19 Subjective:: no chnages Reason For Visit: PROTEIN-CALORIE MALNUTRITION,INFECTED PRESSURE Physical Exam Vital Signs: Temp Pulse Resp BP Pulse Ox 98.2 F 60 16 138/58 H 94 07/31/19 00:27 07/31/19 00:27 07/31/19 00:27 07/31/19 00:27 07/31/19 00:27 Intake & Output 07/30/19 07/31/19 08/01/19 06:59 06:59 06:59 Intake Total 2120 2194 Output Total 1000 1750 Balance 1120 444 Weight 77.7 kg 77.6 kg General appearance: PRESENT: no acute distress Head exam: PRESENT: normocephalic Eye exam: PRESENT: EOMI Mouth exam: PRESENT: moist Teeth exam: PRESENT: edentulous Neck exam: PRESENT: full ROM Respiratory exam: PRESENT: clear to auscultation ijeoma Cardiovascular exam: PRESENT: RRR Breast: PRESENT: Normal GI/Abdominal exam: PRESENT: soft Rectal exam: PRESENT: other - wound vac in place changed yesterday by nurses reported clean granulation bed Extremities exam: PRESENT: full ROM Neurological exam: PRESENT: awake Skin exam: PRESENT: dry Results Laboratory Results: 07/29/19 05:26 07/29/19 05:26 Impressions: Abdomen/Pelvis CT 07/21/19 14:05 IMPRESSION: 1. Gas-containing subcutaneous collection posterior to the sacrum/ coccyx that is associated with dermal thickening and inflammatory stranding of the surrounding fat and measures up to 5 cm in transverse diameter and 7.8 cm in craniocaudal diameter. There is no associated erosion of the sacrum or coccyx. 2. Age indeterminate compression deformity of the superior endplate of the L3 vertebral body with less than 25% loss of the vertebral body height and no retropulsion that is new from 10/15/2018. 3. New 13 x 10 mm cystic lesions in the pancreatic body (image 35 of series 3). 4. Consolidative opacities with air bronchograms in the left lower lobe that could represent atelectasis or an infection. Assessment & Plan - Plan Summary Plan Summary: pt s/p debridement of large sacral decubuti wound vac in place wound clean pt plan on dc to snf tomorrow surgery will sign off at this time pt can f/u in wound clinic or surgery clinic.
[2019-07-31] MEDS: LOSARTAN POTASSIUM 50 MG TABLET PO SCH (09:38)
[2019-07-31] MEDS: SERTRALINE HCL 50 MG TABLET PO SCH (09:38)
[2019-07-31] MEDS: ENOXAPARIN SODIUM INJ 40 MG/0.4 ML DISP.SYRIN SUBCUT SCH (09:39)
[2019-07-31] MEDS: HYDROCHLOROTHIAZIDE 12.5 MG TABLET PO SCH (09:39)
[2019-07-31] MEDS: ASCORBIC ACID 500 MG TABLET PO SCH ×2 (09:39→17:23)
[2019-07-31] MEDS: ASPIRIN 81 MG TABLET, ENT COATED PO SCH (09:39)
[2019-07-31] MEDS: MULTIVITAMIN TABLET PO SCH (09:39)
[2019-07-31] MEDS: MEGESTROL ACETATE SUSP 400 MG/10 ML UDCUP PO SCH (09:41)
[2019-07-31] MEDS: ZINC SULFATE 220 MG CAPSULE PO SCH (09:41)
--- NOTE | 2019-07-31 14:43 | PDOC PROGRESS REPORT ---
Subjective Progress Note for:: 07/31/19 Subjective:: Her oral food intake remain a challenge. She denied any nausea, vomiting, abdominal pain or constipation. Patient denied any chest pain or difficulty with breathing. Reason For Visit: PROTEIN-CALORIE MALNUTRITION,INFECTED PRESSURE Physical Exam Vital Signs: Temp Pulse Resp BP Pulse Ox 97.8 F 84 20 136/64 H 97 07/31/19 11:04 07/31/19 11:04 07/31/19 11:04 07/31/19 11:04 07/31/19 11:04 Intake & Output 07/30/19 07/31/19 08/01/19 06:59 06:59 06:59 Intake Total 2120 2194 100 Output Total 1000 1750 Balance 1120 444 100 Weight 77.7 kg 77.6 kg Physical Exam: General appearance: PRESENT: no acute distress Head exam: PRESENT: atraumatic, normocephalic Eye exam: PRESENT: conjunctiva pink. ABSENT: scleral icterus Mouth exam: PRESENT: moist Respiratory exam: PRESENT: clear to auscultation ijeoma, decreased breath sounds - at lung bases Cardiovascular exam: PRESENT: RRR. ABSENT: diastolic murmur, rubs, systolic murmur Vascular exam: ABSENT: pallor GI/Abdominal exam: PRESENT: normal bowel sounds, soft. ABSENT: distended, guarding, mass, organomegaly, rebound, tenderness Extremities exam: ABSENT: pedal edema Neurological exam: PRESENT: alert, awake, oriented to person, oriented to place, oriented to time, oriented to situation, CN II-XII grossly intact. ABSENT: motor sensory deficit Skin exam: PRESENT: dry, warm, other - Sacral decubitus ulcer s/p sharp debridement with wound vac in use. Results Laboratory Results: 07/29/19 05:26 07/29/19 05:26 Impressions: Abdomen/Pelvis CT 07/21/19 14:05 IMPRESSION: 1. Gas-containing subcutaneous collection posterior to the sacrum/ coccyx that is associated with dermal thickening and inflammatory stranding of the surrounding fat and measures up to 5 cm in transverse diameter and 7.8 cm in craniocaudal diameter. There is no associated erosion of the sacrum or coccyx. 2. Age indeterminate compression deformity of the superior endplate of the L3 vertebral body with less than 25% loss of the vertebral body height and no retropulsion that is new from 10/15/2018. 3. New 13 x 10 mm cystic lesions in the pancreatic body (image 35 of series 3). 4. Consolidative opacities with air bronchograms in the left lower lobe that could represent atelectasis or an infection. Assessment & Plan - Diagnosis (1) Sacral decubitus ulcer Qualifiers: Pressure injury stage: stage 4 Qualified Code(s): L89.154 - Pressure ulcer of sacral region, stage 4 Is this a current diagnosis for this admission?: Yes (2) Protein calorie malnutrition Qualifiers: Protein-calorie malnutrition severity: moderate Qualified Code(s): E44.0 - Moderate protein-calorie malnutrition Is this a current diagnosis for this admission?: Yes (3) Failure of outpatient treatment Is this a current diagnosis for this admission?: Yes (4) RAIZA (acute kidney injury) Is this a current diagnosis for this admission?: Yes (5) Senile debility Is this a current diagnosis for this admission?: Yes (6) Generalized weakness Is this a current diagnosis for this admission?: Yes (7) Difficulty walking Is this a current diagnosis for this admission?: Yes (8) HTN (hypertension) Qualifiers: Hypertension type: essential hypertension Qualified Code(s): I10 - Essential (primary) hypertension Is this a current diagnosis for this admission?: Yes (9) HLD (hyperlipidemia) Qualifiers: Hyperlipidemia type: unspecified Qualified Code(s): E78.5 - Hyperlipidemia, unspecified Is this a current diagnosis for this admission?: Yes (10) Multiple myeloma Qualifiers: Multiple myeloma remission status: not in remission Qualified Code(s): C90.00 - Multiple myeloma not having achieved remission Is this a current diagnosis for this admission?: Yes (11) Osteoarthritis involving multiple 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 Is this a current diagnosis for this admission?: Yes (12) Anemia requiring transfusions Is this a current diagnosis for this admission?: Yes - Time Time Spent with patient: 25-34 minutes Level of Care: MEDICAL Medications reviewed and adjusted accordingly: Yes Anticipated discharge: SNF Within: Other - Inpatient Certification Based on my medical assessment, after consideration of the patient's comorbidities, presenting symptoms, or acuity I expect that the services needed warrant INPATIENT care.: Yes I certify that my determination is in accordance with my understanding of Medicare's requirements for reasonable and necessary INPATIENT services [42 CFR 412.3e].: Yes Medical Necessity: Failure to Improve With Outpatient Therapy, Significant Comorbidiites Make Outpatient Treatment Too Risky, Need Close Monitoring Due to Risk of Patient Decompensation, Need For IV Fluids, Need for IV Antibiotics, Risk of Complication if Not Cared For in Hospital, Risk of Diagnosis Which Will Require Inpatient Eval/Care/Monitoring - Plan Summary Plan Summary: Continue current medication management. Day # 10 on IV Zosyn therapy. Possible transfer to SNF for short term rehabilitation and wound management in next 24 - 48 hours.
[2019-07-31] MEDS: NORMAL SALINE 1000 ML 1,000 ML IV PRN (17:29)
[2019-08-01] MEDS: HYDROCODONE/ACETAMINOPHEN 5-325 MG TABLET PO PRN ×2 (00:25→15:50)
[2019-08-01] MEDS: PIPERACILLIN SODIUM/TAZOBACTAM 3.375 GM in NORMAL SALINE 100 ML IV SCH ×4 (02:56→21:29)
[2019-08-01] MEDS: PANTOPRAZOLE SODIUM 40 MG TABLET.DR PO SCH (05:49)
[2019-08-01] MEDS: LOSARTAN POTASSIUM 50 MG TABLET PO SCH (09:11)
[2019-08-01] MEDS: SERTRALINE HCL 50 MG TABLET PO SCH (09:11)
[2019-08-01] MEDS: ASPIRIN 81 MG TABLET, ENT COATED PO SCH (09:12)
[2019-08-01] MEDS: MULTIVITAMIN TABLET PO SCH (09:12)
[2019-08-01] MEDS: ASCORBIC ACID 500 MG TABLET PO SCH ×2 (09:12→17:31)
[2019-08-01] MEDS: ENOXAPARIN SODIUM INJ 40 MG/0.4 ML DISP.SYRIN SUBCUT SCH (09:12)
[2019-08-01] MEDS: HYDROCHLOROTHIAZIDE 12.5 MG TABLET PO SCH (09:12)
[2019-08-01] MEDS: ZINC SULFATE 220 MG CAPSULE PO SCH (09:13)
[2019-08-01] MEDS: MEGESTROL ACETATE SUSP 400 MG/10 ML UDCUP PO SCH (09:13)
--- NOTE | 2019-08-01 09:33 | PDOC PROGRESS REPORT ---
Subjective Progress Note for:: 08/01/19 Subjective:: Patient is currently doing same Patient was admitted because of the stage IV decubitus ulcer status post debridement Patient is currently on IV Zosyn Patient's p.o. intake is challenge Patient is waiting to go into nursing facilities on a Saturday According to the nursing staff no other concerns Reason For Visit: PROTEIN-CALORIE MALNUTRITION,INFECTED PRESSURE Physical Exam Vital Signs: Temp Pulse Resp BP Pulse Ox 98.9 F 100 16 147/58 H 100 08/01/19 07:50 08/01/19 07:50 08/01/19 07:50 08/01/19 07:50 08/01/19 07:50 Intake & Output 07/31/19 08/01/19 08/02/19 06:59 06:59 06:59 Intake Total 2194 1820 100 Output Total 1750 1900 Balance 444 -80 100 Weight 77.6 kg 77.6 kg General appearance: PRESENT: no acute distress Eye exam: PRESENT: PERRLA Mouth exam: PRESENT: neck supple Respiratory exam: PRESENT: clear to auscultation ijeoma Cardiovascular exam: PRESENT: +S1, +S2 Neurological exam: PRESENT: alert, awake Skin exam: PRESENT: dry Results Laboratory Results: 07/29/19 05:26 07/29/19 05:26 Impressions: Abdomen/Pelvis CT 07/21/19 14:05 IMPRESSION: 1. Gas-containing subcutaneous collection posterior to the sacrum/ coccyx that is associated with dermal thickening and inflammatory stranding of the surrounding fat and measures up to 5 cm in transverse diameter and 7.8 cm in craniocaudal diameter. There is no associated erosion of the sacrum or coccyx. 2. Age indeterminate compression deformity of the superior endplate of the L3 vertebral body with less than 25% loss of the vertebral body height and no retropulsion that is new from 10/15/2018. 3. New 13 x 10 mm cystic lesions in the pancreatic body (image 35 of series 3). 4. Consolidative opacities with air bronchograms in the left lower lobe that could represent atelectasis or an infection. Assessment & Plan - Diagnosis (1) Sacral decubitus ulcer Qualifiers: Pressure injury stage: stage 4 Qualified Code(s): L89.154 - Pressure ulcer of sacral region, stage 4 Is this a current diagnosis for this admission?: Yes (2) Failure of outpatient treatment Is this a current diagnosis for this admission?: Yes (3) Generalized weakness Is this a current diagnosis for this admission?: Yes (4) Protein calorie malnutrition Qualifiers: Protein-calorie malnutrition severity: moderate Qualified Code(s): E44.0 - Moderate protein-calorie malnutrition Is this a current diagnosis for this admission?: Yes (5) Multiple myeloma Qualifiers: Multiple myeloma remission status: not in remission Qualified Code(s): C90.00 - Multiple myeloma not having achieved remission Is this a current diagnosis for this admission?: Yes (6) Osteoarthritis involving multiple 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 Is this a current diagnosis for this admission?: Yes - Time Time Spent with patient: 15-24 minutes Level of Care: TELE Medications reviewed and adjusted accordingly: Yes Anticipated discharge: SNF Within: Other - Plan Summary Plan Summary: Continues to IV antibiotic
[2019-08-01] MEDS: NORMAL SALINE 1000 ML 1,000 ML IV PRN (14:56)
[2019-08-02] MEDS: PIPERACILLIN SODIUM/TAZOBACTAM 3.375 GM in NORMAL SALINE 100 ML IV SCH ×2 (02:42→10:04)
[2019-08-02] MEDS: PANTOPRAZOLE SODIUM 40 MG TABLET.DR PO SCH (05:09)
--- NOTE | 2019-08-02 09:50 | PDOC PROGRESS REPORT ---
Subjective Progress Note for:: 08/02/19 Subjective:: Patient is currently doing same Patient was admitted because of the stage IV decubitus ulcer status post debridement Patient is currently on IV Zosyn Patient's p.o. intake is challenge Patient is waiting to go into nursing facilities on a Saturday According to the nursing staff no other concerns Reason For Visit: PROTEIN-CALORIE MALNUTRITION,INFECTED PRESSURE Physical Exam Vital Signs: Temp Pulse Resp BP Pulse Ox 99.3 F 62 16 149/64 H 96 08/02/19 07:41 08/02/19 07:41 08/02/19 07:41 08/02/19 07:41 08/02/19 07:41 Intake & Output 08/01/19 08/02/19 08/03/19 06:59 06:59 06:59 Intake Total 1820 1760 Output Total 1900 2200 Balance -80 -440 Weight 77.6 kg 79.4 kg General appearance: PRESENT: no acute distress, well-developed, well-nourished Head exam: PRESENT: atraumatic, normocephalic Eye exam: PRESENT: conjunctiva pink, EOMI, PERRLA. ABSENT: scleral icterus Ear exam: PRESENT: normal external ear exam Mouth exam: PRESENT: moist, tongue midline Neck exam: PRESENT: full ROM. ABSENT: carotid bruit, JVD, lymphadenopathy, thyromegaly Respiratory exam: PRESENT: clear to auscultation ijeoma Cardiovascular exam: PRESENT: RRR. ABSENT: diastolic murmur, rubs, systolic murmur Vascular exam: PRESENT: normal capillary refill GI/Abdominal exam: PRESENT: normal bowel sounds, soft. ABSENT: distended, guarding, mass, organolmegaly, rebound, tenderness Rectal exam: PRESENT: deferred Neurological exam: PRESENT: alert, awake. ABSENT: motor sensory deficit Psychiatric exam: PRESENT: appropriate affect, normal mood. ABSENT: homicidal ideation, suicidal ideation Skin exam: PRESENT: dry, intact, warm. ABSENT: cyanosis, rash Results Laboratory Results: 07/29/19 05:26 07/29/19 05:26 Impressions: Abdomen/Pelvis CT 07/21/19 14:05 IMPRESSION: 1. Gas-containing subcutaneous collection posterior to the sacrum/ coccyx that is associated with dermal thickening and inflammatory stranding of the surrounding fat and measures up to 5 cm in transverse diameter and 7.8 cm in craniocaudal diameter. There is no associated erosion of the sacrum or coccyx. 2. Age indeterminate compression deformity of the superior endplate of the L3 vertebral body with less than 25% loss of the vertebral body height and no retropulsion that is new from 10/15/2018. 3. New 13 x 10 mm cystic lesions in the pancreatic body (image 35 of series 3). 4. Consolidative opacities with air bronchograms in the left lower lobe that could represent atelectasis or an infection. Assessment & Plan - Diagnosis (1) Sacral decubitus ulcer Qualifiers: Pressure injury stage: stage 4 Qualified Code(s): L89.154 - Pressure ulcer of sacral region, stage 4 Is this a current diagnosis for this admission?: Yes (2) Failure of outpatient treatment Is this a current diagnosis for this admission?: Yes (3) Generalized weakness Is this a current diagnosis for this admission?: Yes (4) Protein calorie malnutrition Qualifiers: Protein-calorie malnutrition severity: moderate Qualified Code(s): E44.0 - Moderate protein-calorie malnutrition Is this a current diagnosis for this admission?: Yes (5) Multiple myeloma Qualifiers: Multiple myeloma remission status: not in remission Qualified Code(s): C90.00 - Multiple myeloma not having achieved remission Is this a current diagnosis for this admission?: Yes (6) Osteoarthritis involving multiple 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 Is this a current diagnosis for this admission?: Yes - Time Time Spent with patient: 15-24 minutes Level of Care: IMCU Medications reviewed and adjusted accordingly: Yes Anticipated discharge: Other Within: Other - Plan Summary Plan Summary: Continues the current medications
[2019-08-02] MEDS: ASPIRIN 81 MG TABLET, ENT COATED PO SCH (10:03)
[2019-08-02] MEDS: ASCORBIC ACID 500 MG TABLET PO SCH ×2 (10:04→17:31)
[2019-08-02] MEDS: SERTRALINE HCL 50 MG TABLET PO SCH (10:04)
[2019-08-02] MEDS: HYDROCHLOROTHIAZIDE 12.5 MG TABLET PO SCH (10:04)
[2019-08-02] MEDS: LOSARTAN POTASSIUM 50 MG TABLET PO SCH (10:04)
[2019-08-02] MEDS: MULTIVITAMIN TABLET PO SCH (10:04)
[2019-08-02] MEDS: ZINC SULFATE 220 MG CAPSULE PO SCH (10:07)
[2019-08-02] MEDS: MEGESTROL ACETATE SUSP 400 MG/10 ML UDCUP PO SCH (10:07)
[2019-08-02] MEDS: ENOXAPARIN SODIUM INJ 40 MG/0.4 ML DISP.SYRIN SUBCUT SCH (10:24)
[2019-08-02] MEDS: HYDROCODONE/ACETAMINOPHEN 5-325 MG TABLET PO PRN (20:27)
[2019-08-03] MEDS: HYDROCODONE/ACETAMINOPHEN 5-325 MG TABLET PO PRN ×2 (00:27→04:33)
[2019-08-03] MEDS: NORMAL SALINE 1000 ML 1,000 ML IV PRN (00:27)
[2019-08-03] MEDS: PANTOPRAZOLE SODIUM 40 MG TABLET.DR PO SCH (06:35)
[2019-08-03] MEDS: MEGESTROL ACETATE SUSP 400 MG/10 ML UDCUP PO SCH (09:11)
[2019-08-03] MEDS: ENOXAPARIN SODIUM INJ 40 MG/0.4 ML DISP.SYRIN SUBCUT SCH (09:12)
[2019-08-03] MEDS: MULTIVITAMIN TABLET PO SCH (09:12)
[2019-08-03] MEDS: LOSARTAN POTASSIUM 50 MG TABLET PO SCH (09:12)
[2019-08-03] MEDS: ASCORBIC ACID 500 MG TABLET PO SCH ×2 (09:12→17:25)
[2019-08-03] MEDS: ASPIRIN 81 MG TABLET, ENT COATED PO SCH (09:12)
[2019-08-03] MEDS: ZINC SULFATE 220 MG CAPSULE PO SCH (09:12)
[2019-08-03] MEDS: SERTRALINE HCL 50 MG TABLET PO SCH (09:12)
[2019-08-03] MEDS: HYDROCHLOROTHIAZIDE 12.5 MG TABLET PO SCH (09:12)
[2019-08-03 17:49] LABS: ABSOLUTE BASOPHILS # (AUTO) 0.1 10^3/uL (0.0-0.2); ABSOLUTE EOSINOPHILS # (AUTO) 0.3 10^3/uL (0.0-0.6); ABSOLUTE LYMPHOCYTES (AUTO) 0.9 10^3/uL (0.5-4.7); ABSOLUTE MONOCYTES (AUTO) 0.7 10^3/uL (0.1-1.4); ABSOLUTE NEUT (AUTO) 7.9 10^3/uL (1.7-8.2); BASOPHILS % (AUTO) 0.6 % (0-2); EOSINOPHILS % (AUTO) 2.6 % (0-6); HEMATOCRIT 29.5 % (36.0-47.0); HEMOGLOBIN 10.2 g/dL (12.0-15.5); LYMPHOCYTES % (AUTO) 8.9 % (13-45); MEAN CORPUSCULAR HEMOGLOBIN 30.6 pg (27.0-33.4); MEAN CORPUSCULAR HGB CONC 34.5 g/dL (32.0-36.0); MEAN CORPUSCULAR VOLUME 89 fl (80-97); MONOCYTES % (AUTO) 7.6 % (3-13); PLATELET COUNT 328 10^3/uL (150-450); RED BLOOD COUNT 3.33 10^6/uL (3.72-5.28); RED CELL DISTRIBUTION WIDTH 17.4 % (11.5-14.0); SEGMENTED NEUTROPHILS % (AUTO) 80.3 % (42-78); TOTAL CELLS COUNTED % (AUTO) 100 %; WHITE BLOOD COUNT 9.8 10^3/uL (4.0-10.5)
--- NOTE | 2019-08-03 17:58 | PDOC PROGRESS REPORT ---
Subjective Progress Note for:: 08/03/19 Subjective:: She denied any chest pain or difficulty with breathing. No fever or chills. She denied any nausea, vomiting, abdominal pain or constipation. Her oral intake remain a challenge with persistent hypoalbuminemia. Attempt at transfer to SNF today was declined due to facility refusing to accept patient after 4pm. Reason For Visit: PROTEIN-CALORIE MALNUTRITION,INFECTED PRESSURE Physical Exam Vital Signs: Temp Pulse Resp BP Pulse Ox 99.2 F 78 16 148/60 H 100 08/03/19 15:05 08/03/19 15:05 08/03/19 15:05 08/03/19 15:05 08/03/19 15:05 Intake & Output 08/02/19 08/03/19 08/04/19 06:59 06:59 06:59 Intake Total 1760 1250 320 Output Total 2200 1900 600 Balance -440 -650 -280 Weight 79.4 kg 79.4 kg Physical Exam: General appearance: PRESENT: no acute distress Head exam: PRESENT: atraumatic, normocephalic Eye exam: PRESENT: conjunctiva pink. ABSENT: scleral icterus Mouth exam: PRESENT: moist Respiratory exam: PRESENT: clear to auscultation ijeoma, decreased breath sounds - at lung bases Cardiovascular exam: PRESENT: RRR. ABSENT: diastolic murmur, rubs, systolic murmur Vascular exam: ABSENT: pallor GI/Abdominal exam: PRESENT: normal bowel sounds, soft. ABSENT: distended, guarding, mass, organomegaly, rebound, tenderness Extremities exam: ABSENT: pedal edema Neurological exam: PRESENT: alert, awake, oriented to person, oriented to place, oriented to time, oriented to situation, CN II-XII grossly intact. ABSENT: motor sensory deficit Skin exam: PRESENT: dry, warm, other - Sacral decubitus ulcer s/p sharp debridement with wound vac in use. Results Laboratory Results: 07/29/19 05:26 07/29/19 05:26 Impressions: Abdomen/Pelvis CT 07/21/19 14:05 IMPRESSION: 1. Gas-containing subcutaneous collection posterior to the sacrum/ coccyx that is associated with dermal thickening and inflammatory stranding of the surrounding fat and measures up to 5 cm in transverse diameter and 7.8 cm in craniocaudal diameter. There is no associated erosion of the sacrum or coccyx. 2. Age indeterminate compression deformity of the superior endplate of the L3 vertebral body with less than 25% loss of the vertebral body height and no retropulsion that is new from 10/15/2018. 3. New 13 x 10 mm cystic lesions in the pancreatic body (image 35 of series 3). 4. Consolidative opacities with air bronchograms in the left lower lobe that could represent atelectasis or an infection. Assessment & Plan - Diagnosis (1) Sacral decubitus ulcer Qualifiers: Pressure injury stage: stage 4 Qualified Code(s): L89.154 - Pressure ulcer of sacral region, stage 4 Is this a current diagnosis for this admission?: Yes (2) Protein calorie malnutrition Qualifiers: Protein-calorie malnutrition severity: moderate Qualified Code(s): E44.0 - Moderate protein-calorie malnutrition Is this a current diagnosis for this admission?: Yes (3) Failure of outpatient treatment Is this a current diagnosis for this admission?: Yes (4) RAIZA (acute kidney injury) Is this a current diagnosis for this admission?: Yes (5) Senile debility Is this a current diagnosis for this admission?: Yes (6) Generalized weakness Is this a current diagnosis for this admission?: Yes (7) Difficulty walking Is this a current diagnosis for this admission?: Yes (8) HTN (hypertension) Qualifiers: Hypertension type: essential hypertension Qualified Code(s): I10 - Essential (primary) hypertension Is this a current diagnosis for this admission?: Yes (9) HLD (hyperlipidemia) Qualifiers: Hyperlipidemia type: unspecified Qualified Code(s): E78.5 - Hyperlipidemia, unspecified Is this a current diagnosis for this admission?: Yes (10) Multiple myeloma Qualifiers: Multiple myeloma remission status: not in remission Qualified Code(s): C90.00 - Multiple myeloma not having achieved remission Is this a current diagnosis for this admission?: Yes (11) Osteoarthritis involving multiple 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 Is this a current diagnosis for this admission?: Yes (12) Anemia requiring transfusions Is this a current diagnosis for this admission?: Yes - Time Time Spent with patient: 25-34 minutes Level of Care: MEDICAL Medications reviewed and adjusted accordingly: Yes Anticipated discharge: SNF Within: Other - Inpatient Certification Based on my medical assessment, after consideration of the patient's comorbidities, presenting symptoms, or acuity I expect that the services needed warrant INPATIENT care.: Yes I certify that my determination is in accordance with my understanding of Medicare's requirements for reasonable and necessary INPATIENT services [42 CFR 412.3e].: Yes Medical Necessity: Significant Comorbidiites Make Outpatient Treatment Too Risky, Need Close Monitoring Due to Risk of Patient Decompensation, Need For IV Fluids, Need For Continuous Telemetry Monitoring, Risk of Complication if Not Cared For in Hospital, Risk of Diagnosis Which Will Require Inpatient Eval/Care/Monitoring Post Hospital Care: D/C or Transfer Summary - Plan Summary Plan Summary: Continue current medication management and encouraged increase oral intake with supplementation. Obtain CBC with diff and CMP.
[2019-08-03 18:20] LABS: ALBUMIN 1.9 g/dL (3.5-5.0); ALKALINE PHOSPHATASE 44 U/L (38-126); ANION GAP 5 (5-19); ASPARTATE AMINO TRANSFERASE 44 U/L (14-36); BILIRUBIN,TOTAL 0.4 mg/dL (0.2-1.3); BLOOD UREA NITROGEN 12 mg/dL (7-20); CALCIUM 8.3 mg/dL (8.4-10.2); CARBON DIOXIDE 22 mmol/L (22-30); CHLORIDE 103 mmol/L (98-107); GLUCOSE 102 mg/dL (75-110); POTASSIUM 4.3 mmol/L (3.6-5.0); TOTAL PROTEIN 5.4 g/dL (6.3-8.2)
[2019-08-04] MEDS: PANTOPRAZOLE SODIUM 40 MG TABLET.DR PO SCH (05:45)
[2019-08-04] MEDS: NORMAL SALINE 1000 ML 1,000 ML IV PRN (06:53)
[2019-08-04] MEDS: HYDROCODONE/ACETAMINOPHEN 5-325 MG TABLET PO PRN ×2 (08:06→16:53)
[2019-08-04] MEDS: ASPIRIN 81 MG TABLET, ENT COATED PO SCH (10:10)
[2019-08-04] MEDS: SERTRALINE HCL 50 MG TABLET PO SCH (10:10)
[2019-08-04] MEDS: MULTIVITAMIN TABLET PO SCH (10:10)
[2019-08-04] MEDS: HYDROCHLOROTHIAZIDE 12.5 MG TABLET PO SCH (10:10)
[2019-08-04] MEDS: ASCORBIC ACID 500 MG TABLET PO SCH (10:10)
[2019-08-04] MEDS: ENOXAPARIN SODIUM INJ 40 MG/0.4 ML DISP.SYRIN SUBCUT SCH (10:10)
[2019-08-04] MEDS: LOSARTAN POTASSIUM 50 MG TABLET PO SCH (10:11)
[2019-08-04] MEDS: ZINC SULFATE 220 MG CAPSULE PO SCH (10:11)
[2019-08-04] MEDS: MEGESTROL ACETATE SUSP 400 MG/10 ML UDCUP PO SCH (10:11)
--- NOTE | 2019-08-04 15:38 | PDOC TRANSFER SUMMARY ---
Impression - Admit/DC Date/PCP Admission Date/Primary Care Provider: 07/21/19 18:08 JIMMIE MUÑOZ Discharge Date: 08/04/19 - Discharge Diagnosis (1) Sacral decubitus ulcer Is this a current diagnosis for this admission?: Yes (2) Protein calorie malnutrition Is this a current diagnosis for this admission?: Yes (3) Failure of outpatient treatment Is this a current diagnosis for this admission?: Yes (4) RAIZA (acute kidney injury) Is this a current diagnosis for this admission?: Yes (5) Senile debility Is this a current diagnosis for this admission?: Yes (6) Generalized weakness Is this a current diagnosis for this admission?: Yes (7) Difficulty walking Is this a current diagnosis for this admission?: Yes (8) HTN (hypertension) Is this a current diagnosis for this admission?: Yes (9) HLD (hyperlipidemia) Is this a current diagnosis for this admission?: Yes (10) Multiple myeloma Is this a current diagnosis for this admission?: Yes (11) Osteoarthritis involving multiple 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 Is this a current diagnosis for this admission?: Yes (12) Anemia requiring transfusions Is this a current diagnosis for this admission?: Yes (13) Decubitus ulcer of buttock, stage 4 Is this a current diagnosis for this admission?: Yes (14) Decubitus ulcer, stage 4 with infection Is this a current diagnosis for this admission?: Yes - Assessment Summary: Patient was admitted for unstageable sacral decubitus ulcer with features suggestive if infection. She was treated with IV antibiotic and seen in consultation by he surgical team. She had extensive debridement of the sacral decubitus with resultant stage 4 status. Her wound has been managed with wound vac application. She completed 10 days of IV Zosyn therapy along with 5 days o IV Vancomycin. She had 2 units of PRBC transfusion during this hospitalization due to anemia of acute blood loss. Her recent wound culture is revealing gram negative rods growth. Organism identification and sensitivity is pending at the time of her transfer to SNF. SNF staff physician should follow up with [facility] laboratory for final report of the wound culture and decide on need for any systemic antibiotic therapy.Patient will continue local wound management with wound vac and cleanings as necessary. She may benefit from Equate antibacterial gauze for wound packing. She will be transferred to [facility] today. She will need follow up with the surgical team or wound management team as directed upon discharge. - Additional Information Resuscitation Status: Full Code Discharge Diet: As Tolerated Discharge Activity: Activity As Tolerated, Slowly Increase Activity, Supervised Activity Referrals: [facility] [Outside] JAIMEE COLVIN MD [ACTIVE STAFF] - 08/13/19 8:45 am Home Medications: Aspirin [Ecotrin 81 mg EC Tablet] 81 mg PO DAILY 07/21/19 Atorvastatin Calcium [Lipitor 20 mg Tablet] 20 mg PO QHS 07/21/19 Irbesartan/Hydrochlorothiazide [Irbesartan-Hctz 300-12.5 mg Tb] 1 tab PO DAILY 07/21/19 Levocetirizine Dihydrochloride [Xyzal] 5 mg PO DAILY 07/21/19 Potassium Chloride [Klor-Con M20] 20 meq PO DAILY 07/21/19 Sertraline HCl [Zoloft 50 mg Tablet] 50 mg PO DAILY 07/21/19 Tramadol HCl [Ultram 50 mg Tablet] 50 mg PO Q6HP PRN 07/21/19 Valacyclovir HCl [Valtrex 500 mg Tablet] 500 mg PO DAILY 07/21/19 Ascorbic Acid [Vitamin C 500 mg Tablet] 500 mg PO BID #0 tablet 08/04/19 Megestrol Acetate [Megace Tangela 400 mg/10 ml Udcup] 800 mg PO DAILY udc 08/04/19 Multivitamin [Tab-A-Celena (Multiple Vitamin) Tablet] 1 tab PO DAILY tablet 08/04/19 Pantoprazole Sodium [Protonix [address] Tablet] 40 mg PO Q6AM tablet.dr 08/04/19 Zinc Sulfate [Zinc-220 Capsule] 220 mg PO DAILY capsule 08/04/19 History of Present Illiness History of Present Illness: AYAZ BOYD is a 88 year old female patient known to my practie who arrived at the ED via EMS due to family report of worsening debility and increase sacral region pain and poor condition of her sacral pressure ulcer. Patient sacral ulcer and malnourished stated have been a concern and managed on outpatient. She recently completed a telehealth evaluation initiated by patient and niece but subsequently presented to the office due to daughter insistence on [id number] evaluation the following day. Her evaluation did revealed associated leukocytosis with eschar covered sacral pressure ulcer. There was associated emaciation with poor oral intake. She was started on oral Augmentin and topical santyl cream for chemical debridement of the sacral pressure ulcer. She was maintained on Megestrol and protein powder supplementation therapy. Home health referral was made for skill nursing and physical therapy as well as personal care assistance during her visit in the office. Family reported inability to care for patient at home and due to her worsening condition presented to the ED via for further evaluation and management. Her initial ED evaluation was significant for hypotension, prerenal azotemia and reported abdominal and pelvic CT scan that revealed more extensive soft tissue infectious process without mention of osteomyelitis. Her elevated wbc have resolved but she continue to demonstrate left shift in her differential count. She was advised hospitalization for further evaluation and treatment due to failure of outpatient management, adult failure to thrive, and need for surgical sharp wound debridement. Her morbidities are as listed below. Hospital Course Hospital Course: Patient was admitted for unstageable sacral decubitus ulcer with features suggestive if infection. She was treated with IV antibiotic and seen in consultation by he surgical team. She had extensive debridement of the sacral decubitus with resultant stage 4 status. Her wound has been managed with wound vac application. She completed 10 days of IV Zosyn therapy along with 5 days o IV Vancomycin. She had 2 units of PRBC transfusion during this hospitalization due to anemia of acute blood loss. Her recent wound culture is revealing gram negative rods growth. Organism identification and sensitivity is pending at the time of her transfer to [facility]. SNF staff physician should follow up with [facility] laboratory for final report of the wound culture and decide on need for any systemic antibiotic therapy.Patient will continue local wound management with wound vac and cleanings as necessary. She may benefit from Equate antibacterial gauze for wound packing. She will be transferred to [facility] today. She will need follow up with the surgical team or wound management team as directed upon discharge. Physical Exam Vital Signs: Temp Pulse Resp BP Pulse Ox 98.0 F 98 17 105/67 100 08/04/19 11:23 08/04/19 11:23 08/04/19 11:23 08/04/19 11:23 08/04/19 11:23 Intake & Output 08/03/19 08/04/19 08/05/19 06:59 06:59 06:59 Intake Total 1250 1488 476 Output Total 1900 1600 Balance -650 -112 476 Weight 79.4 kg 75 kg 75 kg General appearance: PRESENT: no acute distress Head exam: PRESENT: atraumatic, normocephalic Eye exam: PRESENT: conjunctiva pink. ABSENT: scleral icterus Mouth exam: PRESENT: moist Respiratory exam: PRESENT: clear to auscultation ijeoma, decreased breath sounds - at lung bases Cardiovascular exam: PRESENT: RRR. ABSENT: diastolic murmur, rubs, systolic murmur Vascular exam: ABSENT: pallor GI/Abdominal exam: PRESENT: normal bowel sounds, soft. ABSENT: distended, guarding, mass, organomegaly, rebound, tenderness Extremities exam: ABSENT: pedal edema Neurological exam: PRESENT: alert, awake, oriented to person, oriented to place, oriented to time, oriented to situation, CN II-XII grossly intact. ABSENT: motor sensory deficit Skin exam: PRESENT: dry, warm, other - Sacral decubitus ulcer s/p sharp debridement with wound vac in use. Results Laboratory Results: WBC 9.8 10^3/uL (4.0-10.5) 08/03/19 17:37 RBC 3.33 10^6/uL (3.72-5.28) L 08/03/19 17:37 Hgb 10.2 g/dL (12.0-15.5) L 08/03/19 17:37 Hct 29.5 % (36.0-47.0) L 08/03/19 17:37 MCV 89 fl (80-97) 08/03/19 17:37 MCH 30.6 pg (27.0-33.4) 08/03/19 17:37 MCHC 34.5 g/dL (32.0-36.0) 08/03/19 17:37 RDW 17.4 % (11.5-14.0) H 08/03/19 17:37 Plt Count 328 10^3/uL (150-450) 08/03/19 17:37 Lymph % (Auto) 8.9 % (13-45) L 08/03/19 17:37 [place] % (Auto) 7.6 % (3-13) 08/03/19 17:37 Eos % (Auto) 2.6 % (0-6) 08/03/19 17:37 Baso % (Auto) 0.6 % (0-2) 08/03/19 17:37 Absolute Neuts (auto) 7.9 10^3/uL (1.7-8.2) 08/03/19 17:37 Absolute Lymphs (auto) 0.9 10^3/uL (0.5-4.7) 08/03/19 17:37 Absolute Monos (auto) 0.7 10^3/uL (0.1-1.4) 08/03/19 17:37 Absolute Eos (auto) 0.3 10^3/uL (0.0-0.6) 08/03/19 17:37 Absolute Basos (auto) 0.1 10^3/uL (0.0-0.2) 08/03/19 17:37 Total Counted 100 07/29/19 05:26 Seg Neutrophils % 80.3 % (42-78) H 08/03/19 17:37 Seg Neuts % (Manual) 89 % (42-78) H 07/29/19 05:26 Band Neutrophils % 2 % (3-5) L 07/25/19 13:10 Lymphocytes % (Manual) 5 % (13-45) L 07/29/19 05:26 Monocytes % (Manual) 5 % (3-13) 07/29/19 05:26 Eosinophils % (Manual) 1 % (0-6) 07/29/19 05:26 Basophils % (Manual) 0 % (0-2) 07/29/19 05:26 Abs Neuts (Manual) 9.6 10^3/uL (1.7-8.2) H 07/29/19 05:26 Abs Lymphs (Manual) 0.5 10^3/uL (0.5-4.7) 07/29/19 05:26 Abs Monocytes (Manual) 0.5 10^3/uL (0.1-1.4) 07/29/19 05:26 Absolute Eos (Manual) 0.1 10^3/uL (0.0-0.6) 07/29/19 05:26 Abs Basophils (Manual) 0.0 10^3/uL (0.0-0.2) 07/29/19 05:26 Toxic Granulation SLIGHT 07/29/19 05:26 Toxic Vacuolation PRESENT 07/25/19 13:10 Large Platelets PRESENT 07/25/19 13:10 Platelet Comment ADEQUATE 07/29/19 05:26 Polychromasia SLIGHT 07/25/19 13:10 Poikilocytosis SLIGHT 07/29/19 05:26 Anisocytosis 1+ 07/29/19 05:26 Pappenheimer Bodies PRESENT 07/25/19 13:10 Target Cells SLIGHT 07/25/19 13:10 Ovalocytes 1+ 07/29/19 05:26 [place] Cells SLIGHT 07/29/19 05:26 Acanthocytes (Spur) 1+ 07/25/19 13:10 Schistocytes SLIGHT 07/29/19 05:26 Sodium 129.6 mmol/L (137-145) L 08/03/19 17:37 Potassium 4.3 mmol/L (3.6-5.0) 08/03/19 17:37 Chloride 103 mmol/L (98-107) 08/03/19 17:37 Carbon Dioxide 22 mmol/L (22-30) 08/03/19 17:37 Anion Gap 5 (5-19) 08/03/19 17:37 BUN 12 mg/dL (7-20) 08/03/19 17:37 Creatinine 0.65 mg/dL (0.52-1.25) 08/03/19 17:37 Est GFR ( Amer) > 60 (>60) 08/03/19 17:37 Est GFR (MDRD) Non-Af > 60 (>60) 08/03/19 17:37 Glucose 102 mg/dL (75-110) 08/03/19 17:37 Calcium 8.3 mg/dL (8.4-10.2) L 08/03/19 17:37 Ionized Calcium [place] 1.00 mmol/L (1.14-1.30) L 07/24/19 14:36 Magnesium 1.9 mg/dL (1.6-2.3) 07/24/19 14:36 Total Bilirubin 0.4 mg/dL (0.2-1.3) 08/03/19 17:37 Direct Bilirubin 0.0 mg/dL (0.0-0.4) 08/03/19 17:37 Neonat Total Bilirubin Not Reportable 08/03/19 17:37 Neonat Direct Bilirubin Not Reportable 08/03/19 17:37 Neonat Indirect Bili Not Reportable 05/18/20 17:37 AST 44 U/L (14-36) H 08/03/19 17:37 ALT 53 U/L (<35) H 08/03/19 17:37 Alkaline Phosphatase 44 U/L (38-126) 08/03/19 17:37 Total Protein 5.4 g/dL (6.3-8.2) L 08/03/19 17:37 Albumin 1.9 g/dL (3.5-5.0) L 08/03/19 17:37 Urine Color YELLOW 07/21/19 14:36 Urine Appearance SLIGHTLY-CLOUDY 07/21/19 14:36 Urine pH 5.0 (5.0-9.0) 07/21/19 14:36 Ur Specific [place] 1.016 07/21/19 14:36 Urine Protein NEGATIVE mg/dL (NEGATIVE) 07/21/19 14:36 Urine Glucose (UA) NEGATIVE mg/dL (NEGATIVE) 07/21/19 14:36 Urine Ketones NEGATIVE mg/dL (NEGATIVE) 07/21/19 14:36 Urine Blood NEGATIVE (NEGATIVE) 07/21/19 14:36 Urine Nitrite (Reflex) NEGATIVE (NEGATIVE) 07/21/19 14:36 Urine Bilirubin NEGATIVE (NEGATIVE) 07/21/19 14:36 Urine Urobilinogen NEGATIVE mg/dL (<2.0) 07/21/19 14:36 Leukocyte Esterase Rfl NEGATIVE (NEGATIVE) 07/21/19 14:36 Urine RBC (Auto) 0 /HPF 07/21/19 14:36 Urine WBC (Reflex) 1 /HPF 07/21/19 14:36 Squamous Epi Cells Auto 1 /HPF 07/21/19 14:36 Urine Mucus (Auto) RARE /LPF 07/21/19 14:36 Urine Ascorbic Acid 40 (NEGATIVE) H 07/21/19 14:36 Time Trough Drawn 0950 07/28/19 09:50 Vancomycin Trough 10.6 ug/mL (5.0-20.0) 07/28/19 09:50 COVID-19 Source NASOPHARYNGEAL 07/25/19 16:31 COVID-19 (JEREMY) NOT DETECTED 07/25/19 16:31 Blood Type A NEGATIVE 07/24/19 14:36 Antibody Screen NEGATIVE 07/24/19 14:36 Crossmatch See Detail 07/24/19 14:36 Impressions: Abdomen/Pelvis CT 07/21/19 14:05 IMPRESSION: 1. Gas-containing subcutaneous collection posterior to the sacrum/ coccyx that is associated with dermal thickening and inflammatory stranding of the surrounding fat and measures up to 5 cm in transverse diameter and 7.8 cm in craniocaudal diameter. There is no associated erosion of the sacrum or coccyx. 2. Age indeterminate compression deformity of the superior endplate of the L3 vertebral body with less than 25% loss of the vertebral body height and no retropulsion that is new from 10/15/2018. 3. New 13 x 10 mm cystic lesions in the pancreatic body (image 35 of series 3). 4. Consolidative opacities with air bronchograms in the left lower lobe that could represent atelectasis or an infection. Plan Health Concerns: High risk of readmission due to depth of her sacral wound and high risk of infection. Plan of Treatment: Continue wound vac therapy and close monitoring for infection with appropriate intervention. Goals: Reduce readmission risk, improve nutritional status, follow up with surgical/wound care team closely. Stroke Is this a Stroke Patient?: No Acute Heart Failure - Is this a Heart Failure Patient?: No
[2019-08-04 16:08] VITALS: BP 165/70
== END 2019-08-04 17:30 | DRG 580 ==
LOC: ER 13:44 → EH 18:08 → 4N 19:18
PROVIDERS: ADMIT Internal Medicine Geriatric Medicine; ATTEND Internal Medicine Geriatric Medicine
PROC: 0KBP0ZZ Excision of Left Hip Muscle, Open Approach (ICD-10-PCS; principal; 2019-07-22 17:00)
PROC: 30233N1 Transfusion of Nonautologous Red Blood Cells into Peripheral Vein, Percutaneous Approach (ICD-10-PCS; 2019-07-24)
PROC: 2W05X6Z Change Pressure Dressing on Back (ICD-10-PCS; 2019-07-27)
DX: L89.154 Pressure ulcer of sacral region, stage 4 (principal); E44.0 Moderate protein-calorie malnutrition; D62 Acute posthemorrhagic anemia; N17.9 Acute kidney failure, unspecified; C90.00 Multiple myeloma not having achieved remission; L08.9 Local infection of the skin and subcutaneous tissue, unspecified; I95.9 Hypotension, unspecified; R62.7 Adult failure to thrive; E78.5 Hyperlipidemia, unspecified; D64.9 Anemia, unspecified; M13.89 Other specified arthritis, multiple sites; F32.9 Major depressive disorder, single episode, unspecified; I10 Essential (primary) hypertension; B96.89 Other specified bacterial agents as the cause of diseases classified elsewhere; R54 Age-related physical debility; Z20.828 Contact with and (suspected) exposure to other viral communicable diseases; Z90.49 Acquired absence of other specified parts of digestive tract; Z79.82 Long term (current) use of aspirin; Z90.710 Acquired absence of both cervix and uterus; Z68.26 Body mass index [BMI] 26.0-26.9, adult; Z79.899 Other long term (current) drug therapy
CPT/HCPCS: 00300; 36415; 36430; 74177; 80053; 80202; 81001; 82040; 82330; 82565; 83735; 85025; 86850; 86900; 86901; 86920; 87040; 87070; 87077; 87186; 87205; 87635; 96361; 96365; 96366; 99140; 99285; J1642; J1650; J2250; J2270; J2543; J2704; J3010; J3370; J3490; J7030; J7040; J7050; J7060; P9016